=== PATIENT | female | born 1965 | race African-American/Black ===

== ENCOUNTER → 2016-08-09 | Outpatient (CLI) | payer MEDICARE, MEDICAID | LOC: RAD 09:49 | PROVIDERS: ATTEND Orthopaedic Surgery | DX: M43.10 Spondylolisthesis, site unspecified (principal) | CPT/HCPCS: 72148 ==

== ENCOUNTER 2016-09-15 20:11 | Emergency (ER) | payer MEDICARE, MEDICAID ==
[2016-09-15] MEDS ORDERED: ONDANSETRON 4 MG TAB.RAPDIS PO ONE (20:59)
--- NOTE | 2016-09-15 21:00 | ER Document Report ---
ED Medical Screen (RME) - General Stated Complaint: LOWER BACK PAIN/PAINFUL URINATION Notes: Patient complains of right flank pain and dysuria that started yesterday. Now having pain to both flank areas. Positive nausea no vomiting or diarrhea. Denies fever. Tried OTC cranberry pills without relief of symptoms. I have greeted and performed a rapid initial assessment of this patient. A comprehensive ED assessment and evaluation of the patient, analysis of test results and completion of the medical decision making process will be conducted by additional ED providers. TRAVEL OUTSIDE OF THE [place] IN LAST 30 DAYS: No - Related Data Allergies/Adverse Reactions: acetaminophen [Acetaminophen] Allergy (Severe, Verified 10/26/15 08:31) itching Shellfish * [Shellfish] Allergy (Severe, Verified 10/26/15 08:31) itch, rash Sulfa (Sulfonamide Antibiotics) Allergy (Severe, Verified 10/26/15 08:31) Hives Iodinated Contrast Media - Oral and [IV Dye, Iodine Containing] Allergy ( Intermediate, Verified 10/26/15 08:31) rash, itching iodine [Iodine] Allergy (Intermediate, Verified 10/26/15 08:31) itch, rash Past Medical History - Past Medical History Cardiac Medical History: Reports: Hx Congestive Heart Failure, Hx Coronary Artery Disease, Hx Hypercholesterolemia, Hx Hypertension Denies: Hx Heart Attack Pulmonary Medical History: Reports: Hx Asthma Denies: Hx Bronchitis, Hx COPD, Hx Pneumonia, Hx Tuberculosis Neurological Medical History: Reports: Hx Migraine. Denies: Hx Cerebrovascular Accident, Hx Seizures Endocrine Medical History: Reports: Hx Diabetes Mellitus Type 2 Renal/ Medical History: Reports: Hx Kidney Stones Musculoskeltal Medical History: Reports Hx Arthritis, Reports Hx Musculoskeletal Deformity Psychiatric Medical History: Reports: Hx Depression Past Surgical History: Reports: Hx Adenoidectomy, Hx Cardiac Catheterization, Hx Coronary Stent - x4 in 2009 according to the patient, Hx Hysterectomy - partial, Hx Tonsillectomy, Hx Tubal Ligation. Denies: Hx Pacemaker - Immunizations Immunizations up to date: Yes Hx Diphtheria, Pertussis, Tetanus Vaccination: Yes Physical Exam - Vital signs Vitals: Temp Pulse Resp BP Pulse Ox 97.7 F 69 15 150/106 H 97 09/15/16 20:49 09/15/16 20:49 09/15/16 20:49 09/15/16 20:49 09/15/16 20:49 - Back Notes: Patient has mild CVAT bilaterally. Course - Vital Signs Vital signs: Temp Pulse Resp BP Pulse Ox 97.7 F 69 15 150/106 H 97 09/15/16 20:49 09/15/16 20:49 09/15/16 20:49 09/15/16 20:49 09/15/16 20:49
[2016-09-15 21:55] LABS: APPEARANCE,URINE SLIGHTLY-CLOUDY; BILIRUBIN,URINE NEGATIVE (NEGATIVE); GLUCOSE, URINE NEGATIVE (NEGATIVE); KETONES,URINE NEGATIVE (NEGATIVE); LEUKOCYTE ESTERASE,URINE NEGATIVE (NEGATIVE); NITRITE,URINE NEGATIVE (NEGATIVE); PROTEIN,URINE 100 mg/dL (NEGATIVE); UROBILINOGEN,URINE NEGATIVE mg/dL (<2.0)
[2016-09-15] MEDS ORDERED: CIPROFLOXACIN HCL 500 MG TABLET PO ONE (23:18)
--- NOTE | 2016-09-15 23:23 | ER Document Report ---
ED General - General Chief Complaint: Flank Pain Stated Complaint: LOWER BACK PAIN/PAINFUL URINATION Notes: Patient is 51-year-old female presents with complaint of pain over her bilateral kidneys as well as dysuria. Symptoms have been ongoing for a day and half. No fevers. Some nausea. No vomiting. No diarrhea. No other symptoms. She does have history of kidney stones but this feels different. She has been taking cranberry juice in the cranberry tablets. Symptoms not improve with taking these she therefore came to ER. She has no other complaints. She denies any abnormal vaginal discharge. She says she has not been sexually active for a long time.. TRAVEL OUTSIDE OF THE [place] IN LAST 30 DAYS: No - Related Data Allergies/Adverse Reactions: acetaminophen [Acetaminophen] Allergy (Severe, Verified 09/15/16 21:00) itching Shellfish * [Shellfish] Allergy (Severe, Verified 09/15/16 21:00) itch, rash Sulfa (Sulfonamide Antibiotics) Allergy (Severe, Verified 09/15/16 21:00) Hives Iodinated Contrast Media - Oral and [IV Dye, Iodine Containing] Allergy ( Intermediate, Verified 09/15/16 21:00) rash, itching iodine [Iodine] Allergy (Intermediate, Verified 09/15/16 21:00) itch, rash Past Medical History - Social History Smoking Status: Never Smoker Chew tobacco use (# tins/day): No Frequency of alcohol use: None Drug Abuse: None Family History: Arthritis, CAD, DM, Hyperlipidemia, Hypertension, Malignancy, Thyroid Disfunction, Other - kidney disease Patient has suicidal ideation: No Patient has homicidal ideation: No - Past Medical History Cardiac Medical History: Reports: Hx Congestive Heart Failure, Hx Coronary Artery Disease, Hx Hypercholesterolemia, Hx Hypertension Denies: Hx Heart Attack Pulmonary Medical History: Reports: Hx Asthma Denies: Hx Bronchitis, Hx COPD, Hx Pneumonia, Hx Tuberculosis Neurological Medical History: Reports: Hx Migraine. Denies: Hx Cerebrovascular Accident, Hx Seizures Endocrine Medical History: Reports: Hx Diabetes Mellitus Type 2 Renal/ Medical History: Reports: Hx Kidney Stones. Denies: Hx Peritoneal Dialysis Musculoskeltal Medical History: Reports Hx Arthritis, Reports Hx Musculoskeletal Deformity Psychiatric Medical History: Reports: Hx Depression Past Surgical History: Reports: Hx Adenoidectomy, Hx Cardiac Catheterization, Hx Coronary Stent - x4 in 2009 according to the patient, Hx Hysterectomy - partial, Hx Tonsillectomy, Hx Tubal Ligation. Denies: Hx Pacemaker - Immunizations Immunizations up to date: Yes Hx Diphtheria, Pertussis, Tetanus Vaccination: Yes Review of Systems - Review of Systems Notes: My Normal Review Basic REVIEW OF SYSTEMS: CONSTITUTIONAL : Denies fever, chills, or sweats. Denies recent illness. RESPIRATORY: Denies cough, cold, or chest congestion. Denies shortness of breath, difficulty breathing, or wheezing. GASTROINTESTINAL: Denies abdominal pain. Denies nausea, vomiting, or diarrhea. Denies constipation. Last BM: GENITOURINARY: Dysuria FEMALE GENITOURINARY: Denies vaginal bleeding, abnormal or irregular periods. MUSCULOSKELETAL: Pain over bilateral kidneys SKIN: Denies rash or skin lesions. NEUROLOGICAL: Denies altered mental status or loss of consciousness. Denies headache. Denies weakness or paralysis or loss of use of either side. Denies problems with gait or speech. Denies sensory or motor loss. ALL OTHER SYSTEMS REVIEWED AND NEGATIVE. Physical Exam - Vital signs Vitals: Temp Pulse Resp BP Pulse Ox 97.7 F 69 15 150/106 H 97 09/15/16 20:49 09/15/16 20:49 09/15/16 20:49 09/15/16 20:49 09/15/16 20:49 - Notes Notes: General Appearance: Well nourished, alert, cooperative, no acute distress, no obvious discomfort. Vitals: reviewed, See vital signs table. Head: no swelling or tenderness to the head Eyes: PERRL, EOMI, Conjuctiva clear Mouth: No decreasd moisture Neck: Supple, no neck tenderness, No thyromegaly Lungs: No wheezing, No rales, No rhonci, No accessory muscle use, good air exchange bilaterally. Heart: Normal rate, Regular rythm, No murmur, no rub Back: Positive Pedro Luis sign bilaterally. No redness or swelling to the back. Abdomen: Normal BS, soft, No rigidity, mild lower bilateral abdominal tenderness to palpation, No guarding, no rebound, no abdominal masses, no organomegaly Extremities: strength 5/5 in all extremities, good pulses in all extremities, no swelling or tenderness in the extremities, no edema. Skin: warm, dry, appropriate color, no rash Neuro: speech clear, oriented x 3, normal affect, responds appropriately to questions. Course - Vital Signs Vital signs: Temp Pulse Resp BP Pulse Ox 97.7 F 69 15 150/106 H 97 09/15/16 20:57 09/15/16 20:57 09/15/16 20:57 09/15/16 20:57 09/15/16 20:57 - Laboratory Laboratory results interpreted by me: 09/15/16 20:51 Urine Protein 100 H - Transfer of Care Notes: 09/15/16 23:23 Patient's urinalysis is negative. Her symptoms and history of very consistent for UTI though. She has dysuria with mild bilateral low back pain. She had some nausea. She's had no fevers. She has been on the cranberry tablets. She has no blood in her urine and her pain is bilateral therefore do not suspect kidney stone. At this time I'll give the patient a trial of antibiotics. I encourage her to return to ER immediately if she has any worsening of her symptoms. I informed her she must return to ER or her doctor in 3-4 days of her symptoms have not improved with the antibiotics. Patient is agreeable to plan and she will be discharged home. Dictation of this chart was performed using voice recognition software; therefore, there may be some unintended grammatical errors. Discharge - Discharge Clinical Impression: Dysuria Condition: Good Disposition: HOME, SELF-CARE Additional Instructions: Please take the antibiotics as prescribed. Please return to the ER immediately if you have worsening of your symptoms, fevers, or feel unwell. Please return to ER follow-up care doctor in 3-4 days if he still of symptoms despite taking the antibiotics. Prescriptions: Ciprofloxacin HCl [Cipro 500 mg Tablet] 500 mg PO BID #10 tablet
[2016-09-16 00:25] VITALS: BP 107/104
== END 2016-09-15 23:34 | disposition home or self-care (01) ==
LOC: ER 20:11
DX: R30.0 Dysuria (principal); N23 Unspecified renal colic; R11.0 Nausea; E11.9 Type 2 diabetes mellitus without complications; I25.10 Atherosclerotic heart disease of native coronary artery without angina pectoris; I10 Essential (primary) hypertension; J45.909 Unspecified asthma, uncomplicated; Z87.442 Personal history of urinary calculi; Z88.6 Allergy status to analgesic agent; Z91.013 Allergy to seafood; Z88.2 Allergy status to sulfonamides; Z91.040 Latex allergy status; Z98.61 Coronary angioplasty status
CPT/HCPCS: 81001; 99284

== ENCOUNTER 2016-09-19 00:35 | Emergency (ER) | payer MEDICARE, MEDICAID ==
--- NOTE | 2016-09-19 03:59 | ER Document Report ---
ED GI/ - General Chief Complaint: Flank Pain Stated Complaint: FLANK PAIN Notes: Patient is a 51-year-old female that comes emergency department for chief complaint of pain in her flank, pain is in her lower back and on both sides. Patient states intermittently she feels shooting into her legs which she started to notice over the past couple of days. She states she was evaluated a few days ago and placed on Cipro for urinary symptoms and flank pain, states her symptoms have not improved. She denies nausea or vomiting, injury, fever. Past medical history of hypertension, diabetes, lower back pain which she takes tramadol for and has had back injections previously. Patient states that this evening when she stood she felt a little lightheaded, denies headache, chest pain, dizziness, fever. TRAVEL OUTSIDE OF THE [place] IN LAST 30 DAYS: No - Related Data Allergies/Adverse Reactions: acetaminophen [Acetaminophen] Allergy (Severe, Verified 09/19/16 01:01) itching Shellfish * [Shellfish] Allergy (Severe, Verified 09/19/16 01:01) itch, rash Sulfa (Sulfonamide Antibiotics) Allergy (Severe, Verified 09/19/16 01:01) Hives Iodinated Contrast Media - Oral and [IV Dye, Iodine Containing] Allergy ( Intermediate, Verified 09/19/16 01:01) rash, itching iodine [Iodine] Allergy (Intermediate, Verified 09/19/16 01:01) itch, rash Past Medical History - General Information source: Patient - Social History Smoking Status: Never Smoker Chew tobacco use (# tins/day): No Frequency of alcohol use: None Drug Abuse: None Lives with: Family Family History: Arthritis, CAD, DM, Hyperlipidemia, Hypertension, Malignancy, Thyroid Disfunction, Other - kidney disease Patient has suicidal ideation: No Patient has homicidal ideation: No - Past Medical History Cardiac Medical History: Reports: Hx Congestive Heart Failure, Hx Coronary Artery Disease, Hx Hypercholesterolemia, Hx Hypertension Denies: Hx Heart Attack Pulmonary Medical History: Reports: Hx Asthma Denies: Hx Bronchitis, Hx COPD, Hx Pneumonia, Hx Tuberculosis Neurological Medical History: Reports: Hx Migraine. Denies: Hx Cerebrovascular Accident, Hx Seizures Endocrine Medical History: Reports: Hx Diabetes Mellitus Type 2 Renal/ Medical History: Reports: Hx Kidney Stones. Denies: Hx Peritoneal Dialysis Musculoskeltal Medical History: Reports Hx Arthritis, Reports Hx Musculoskeletal Deformity Psychiatric Medical History: Reports: Hx Depression Past Surgical History: Reports: Hx Adenoidectomy, Hx Cardiac Catheterization, Hx Coronary Stent - x4 in 2009 according to the patient, Hx Hysterectomy, Hx Tonsillectomy, Hx Tubal Ligation. Denies: Hx Pacemaker - Immunizations Immunizations up to date: Yes Hx Diphtheria, Pertussis, Tetanus Vaccination: Yes Review of Systems - Review of Systems Constitutional: No symptoms reported EENT: No symptoms reported Cardiovascular: No symptoms reported Respiratory: No symptoms reported Gastrointestinal: See HPI Genitourinary: See HPI Female Genitourinary: No symptoms reported Musculoskeletal: See HPI Skin: No symptoms reported Hematologic/Lymphatic: No symptoms reported Neurological/Psychological: No symptoms reported Physical Exam - Vital signs Vitals: Temp Pulse Resp BP Pulse Ox 98.3 F 70 20 182/108 H 98 09/19/16 00:51 09/19/16 00:51 09/19/16 00:51 09/19/16 00:51 09/19/16 00:51 Interpretation: Normal - General General appearance: Appears well, Alert In distress: None - Patient resting and appears comfortable, moves with some discomfort - HEENT Head: Normocephalic, Atraumatic Eyes: Normal Conjunctiva: Normal Extraocular movements intact: Yes Eyelashes: Normal Pupils: PERRL Nasal: Normal Mouth/Lips: Normal Mucous membranes: Normal Pharynx: Normal Neck: Normal - Respiratory Respiratory status: No respiratory distress Chest status: Nontender Breath sounds: Normal Chest palpation: Normal - Cardiovascular Rhythm: Regular. No: Tachycardia Heart sounds: Normal auscultation, S1 appreciated, S2 appreciated Murmur: No - Abdominal Inspection: Normal Distension: No distension Bowel sounds: Normal Tenderness: Nontender. No: Tender, Guarding - Completely benign abdomen Organomegaly: No organomegaly - Back Back: Tender - Tenderness in the bilateral paralumbar musculature, no CVA tenderness, no midline tenderness, no saddle anesthesia, normal upper and lower examine strength, range of motion, and distal neurovascular exam. Mildly positive straight leg raise bilaterally with complaining but no severe discomfort. - Extremities General upper extremity: Normal inspection, Nontender, Normal color, Normal ROM , Normal temperature General lower extremity: Normal inspection, Nontender, Normal color, Normal ROM , Normal temperature, Normal weight bearing. No: Roe's sign - Neurological Neuro grossly intact: Yes Cognition: Normal Orientation: AAOx4 Lazarus Coma Scale Eye Opening: Spontaneous Brodhead Coma Scale Verbal: Oriented Brodhead Coma Scale Motor: Obeys Commands Lazarus Coma Scale Total: 15 Speech: Normal Motor strength normal: LUE, RUE, LLE, RLE Sensory: Normal - Psychological Associated symptoms: Normal affect, Normal mood - Skin Skin Temperature: Warm Skin Moisture: Dry Skin Color: Normal Course - Re-evaluation Re-evalutation: Patient does not have CVA tenderness, she does have bilateral paralumbar muscular tenderness with pain with elevation of legs on both sides. Normal distal neurovascular exam, no saddle anesthesia, no reported injuries. Patient with chronic back pain which is usually not this bad apparently. CBC, chemistry , urinalysis generally unremarkable, urine with trace leukocytes, this was cultured. Patient finishing her Cipro, will treat symptomatically, advised patient to follow-up with her provider who has performed back injections and back evaluation in the past, discussed return precautions in detail, patient states she'll return for fever, vomiting, worsening pain, numbness, or any new concerning symptoms. - Vital Signs Vital signs: Temp Pulse Resp BP Pulse Ox 98.1 F 62 16 130/84 H 97 09/19/16 06:03 09/19/16 06:03 09/19/16 06:03 09/19/16 06:03 09/19/16 06:03 - Laboratory Result Diagrams: 09/19/16 04:01 09/19/16 04:01 Laboratory results interpreted by me: 09/19/16 09/19/16 09/19/16 04:01 04:01 04:01 RDW 14.5 H BUN 25 H Est GFR (Non-Af Amer) 50 L Glucose 151 H Urine Protein 100 H Ur Leukocyte Esterase SMALL H Discharge - Discharge Clinical Impression: Lower back pain Qualifiers: Chronicity: unspecified Back pain laterality: bilateral Sciatica presence: with sciatica Sciatica laterality: sciatica of right side Qualified Code(s): M54.41 - Lumbago with sciatica, right side Condition: Stable Disposition: HOME, SELF-CARE Additional Instructions: By examination and workup your symptoms appear to be musculoskeletal in nature. Take pain medication as directed, apply heat to her lower back, avoid lifting. Follow-up with your provider for additional management including potential back injections or otherwise. Return to emergency department for any concerning or worsening symptoms including fever, numbness, loss of bowel or bladder control, or any other concerning symptoms. Prescriptions: Methocarbamol [Robaxin 750 mg Tablet] 750 mg PO Q6 #20 tablet Oxycodone HCl [Oxycodone HCl 10 MG Tablet] 1 tab PO Q6H PRN #15 tablet PRN Reason: PAIN Forms: Elevated Blood Pressure Referrals: JONATHON RODRIGEZ MD [Primary Care Provider] - Follow up as needed
[2016-09-19 04:21] LABS: ANION GAP 10 (5-19); BLOOD UREA NITROGEN 25 mg/dL (7-20); CALCIUM 9.4 mg/dL (8.4-10.2); CARBON DIOXIDE 24 mmol/L (22-30); CHLORIDE 107 mmol/L (98-107); CREATININE RESULT 1.15 mg/dL (0.52-1.25); GLUCOSE 151 mg/dL (75-110); POTASSIUM 3.6 mmol/L (3.6-5.0); SODIUM 141.1 mmol/L (137-145)
[2016-09-19 04:28] LABS: ABSOLUTE BASOPHILS # (AUTO) 0.1 10^3/uL (0.0-0.2); ABSOLUTE EOSINOPHILS # (AUTO) 0.2 10^3/uL (0.0-0.6); ABSOLUTE LYMPHOCYTES (AUTO) 2.7 10^3/uL (0.5-4.7); ABSOLUTE MONOCYTES (AUTO) 0.4 10^3/uL (0.1-1.4); ABSOLUTE NEUT (AUTO) 6.8 10^3/uL (1.7-8.2); BASOPHILS % (AUTO) 0.8 % (0-2); EOSINOPHILS % (AUTO) 2.2 % (0-6); HEMATOCRIT 39.4 % (36.0-47.0); HEMOGLOBIN 13.2 g/dL (12.0-15.5); HGB HCT DIFFERENCE 0.2; LYMPHOCYTES % (AUTO) 26.7 % (13-45); MEAN CORPUSCULAR HEMOGLOBIN 29.3 pg (27.0-33.4); MEAN CORPUSCULAR HGB CONC 33.4 g/dL (32.0-36.0); MEAN CORPUSCULAR VOLUME 88 fl (80-97); MONOCYTES % (AUTO) 3.7 % (3-13); RED CELL DISTRIBUTION WIDTH 14.5 % (11.5-14.0); SEGMENTED NEUTROPHILS % (AUTO) 66.6 % (42-78); WHITE BLOOD COUNT 10.2 10^3/uL (4.0-10.5)
[2016-09-19 04:59] LABS: APPEARANCE,URINE SLIGHTLY-CLOUDY; BILIRUBIN,URINE NEGATIVE (NEGATIVE); GLUCOSE, URINE NEGATIVE (NEGATIVE); KETONES,URINE NEGATIVE (NEGATIVE); LEUKOCYTE ESTERASE,URINE SMALL (NEGATIVE); NITRITE,URINE NEGATIVE (NEGATIVE); PROTEIN,URINE 100 mg/dL (NEGATIVE); URINE SPECIFIC GRAVITY 1.016; UROBILINOGEN,URINE NEGATIVE mg/dL (<2.0)
[2016-09-19 06:09] VITALS: BP 130/84
== END 2016-09-19 06:04 | disposition home or self-care (01) ==
LOC: ER 00:35
DX: G89.29 Other chronic pain (principal); M54.41 Lumbago with sciatica, right side; R42 Dizziness and giddiness; I25.10 Atherosclerotic heart disease of native coronary artery without angina pectoris; I10 Essential (primary) hypertension; E11.9 Type 2 diabetes mellitus without complications; J45.909 Unspecified asthma, uncomplicated; Z79.891 Long term (current) use of opiate analgesic; Z88.6 Allergy status to analgesic agent; Z91.013 Allergy to seafood; Z88.2 Allergy status to sulfonamides; Z91.041 Radiographic dye allergy status; Z98.61 Coronary angioplasty status
CPT/HCPCS: 36415; 80048; 81001; 85025; 87086; 99284

== ENCOUNTER → 2016-09-27 | Outpatient (CLI) | payer MEDICARE, MEDICAID ==
[2016-09-27 14:25] LABS: ANION GAP 12 (5-19); BLOOD UREA NITROGEN 21 mg/dL (7-20); CALCIUM 9.9 mg/dL (8.4-10.2); CARBON DIOXIDE 24 mmol/L (22-30); CHLORIDE 109 mmol/L (98-107); CREATININE RESULT 1.14 mg/dL (0.52-1.25); GLUCOSE 93 mg/dL (75-110); POTASSIUM 4.2 mmol/L (3.6-5.0); SODIUM 145.1 mmol/L (137-145)
[2016-09-28 10:37] LABS: CREATININE URINE 266.6 mg/dL (Not Estab.)
== END ==
LOC: OD 12:56
PROVIDERS: ATTEND Internal Medicine Nephrology
DX: E11.9 Type 2 diabetes mellitus without complications (principal)
CPT/HCPCS: 36415; 80048; 82570; 83970; 84156

== ENCOUNTER 2017-01-02 15:49 | Emergency (ER) | payer MEDICARE, MEDICAID ==
--- NOTE | 2017-01-02 16:29 | ER Document Report ---
ED Medical Screen (RME) - General Chief Complaint: Flank Pain Stated Complaint: SIDE PAIN Time Seen by Provider: 01/02/17 16:26 Notes: Patient says that she has had a sharp pain in her right side since about 11 AM this morning. This was soon after getting up from being in the bed bed and also from laying on the couch. The pain is sharp and constant. She is not had it previously. It is making her feel lightheaded. Denies any nausea or vomiting or diarrhea, but says she has not eaten or had anything to drink this morning. She had a history of a kidney stone once many years ago. No frequent UTIs. Has not had a fever. Has had some sweats. Patient has a history of hypertension, NIDDM, high cholesterol, hysterectomy. Cardiac cath. TRAVEL OUTSIDE OF THE [place] IN LAST 30 DAYS: No - Related Data Allergies/Adverse Reactions: acetaminophen [Acetaminophen] Allergy (Severe, Verified 09/19/16 01:01) itching Shellfish * [Shellfish] Allergy (Severe, Verified 09/19/16 01:01) itch, rash Sulfa (Sulfonamide Antibiotics) Allergy (Severe, Verified 09/19/16 01:01) Hives Iodinated Contrast- Oral and IV Dye [IV Dye, Iodine Containing] Allergy ( Intermediate, Verified 09/19/16 01:01) rash, itching iodine [Iodine] Allergy (Intermediate, Verified 09/19/16 01:01) itch, rash Past Medical History - Social History Chew tobacco use (# tins/day): No Frequency of alcohol use: Social Drug Abuse: None - Past Medical History Cardiac Medical History: Reports: Hx Congestive Heart Failure, Hx Coronary Artery Disease, Hx Hypercholesterolemia, Hx Hypertension Denies: Hx Heart Attack Pulmonary Medical History: Reports: Hx Asthma Denies: Hx Bronchitis, Hx COPD, Hx Pneumonia, Hx Tuberculosis Neurological Medical History: Reports: Hx Migraine. Denies: Hx Cerebrovascular Accident, Hx Seizures Endocrine Medical History: Reports: Hx Diabetes Mellitus Type 2 Renal/ Medical History: Reports: Hx Kidney Stones. Denies: Hx Peritoneal Dialysis Musculoskeltal Medical History: Reports Hx Arthritis, Reports Hx Musculoskeletal Deformity Psychiatric Medical History: Reports: Hx Depression Past Surgical History: Reports: Hx Adenoidectomy, Hx Cardiac Catheterization, Hx Coronary Stent - x4 in 2009 according to the patient, Hx Hysterectomy, Hx Tonsillectomy, Hx Tubal Ligation. Denies: Hx Pacemaker - Immunizations Immunizations up to date: Yes Hx Diphtheria, Pertussis, Tetanus Vaccination: Yes Physical Exam - Vital signs Vitals: Temp Pulse Resp BP Pulse Ox 98.5 F 65 22 H 179/111 H 98 01/02/17 15:55 01/02/17 15:55 01/02/17 15:55 01/02/17 15:55 01/02/17 15:55 Course - Vital Signs Vital signs: Temp Pulse Resp BP Pulse Ox 98.5 F 65 22 H 105/104 H 98 01/02/17 15:55 01/02/17 15:55 01/02/17 15:55 01/02/17 16:19 01/02/17 15:55
[2017-01-02 17:14] LABS: ABSOLUTE BASOPHILS # (AUTO) 0.1 10^3/uL (0.0-0.2); ABSOLUTE EOSINOPHILS # (AUTO) 0.2 10^3/uL (0.0-0.6); ABSOLUTE LYMPHOCYTES (AUTO) 2.2 10^3/uL (0.5-4.7); ABSOLUTE MONOCYTES (AUTO) 0.4 10^3/uL (0.1-1.4); ABSOLUTE NEUT (AUTO) 5.6 10^3/uL (1.7-8.2); BASOPHILS % (AUTO) 0.6 % (0-2); EOSINOPHILS % (AUTO) 1.9 % (0-6); HEMATOCRIT 41.2 % (36.0-47.0); HEMOGLOBIN 13.3 g/dL (12.0-15.5); HGB HCT DIFFERENCE -1.3; LYMPHOCYTES % (AUTO) 26.2 % (13-45); MEAN CORPUSCULAR HEMOGLOBIN 28.5 pg (27.0-33.4); MEAN CORPUSCULAR HGB CONC 32.4 g/dL (32.0-36.0); MEAN CORPUSCULAR VOLUME 88 fl (80-97); MONOCYTES % (AUTO) 4.7 % (3-13); RED BLOOD COUNT 4.68 10^6/uL (3.72-5.28); RED CELL DISTRIBUTION WIDTH 15.2 % (11.5-14.0); SEGMENTED NEUTROPHILS % (AUTO) 66.6 % (42-78); WHITE BLOOD COUNT 8.5 10^3/uL (4.0-10.5)
[2017-01-02 17:20] LABS: ALANINE AMINOTRANSFERASE 30 U/L (9-52); ALBUMIN 4.1 g/dL (3.5-5.0); ALKALINE PHOSPHATASE 92 U/L (38-126); ANION GAP 10 (5-19); APPEARANCE,URINE SLIGHTLY-CLOUDY; ASPARTATE AMINO TRANSFERASE 19 U/L (14-36); BILIRUBIN,DIRECT 0.3 mg/dL (0.0-0.4); BILIRUBIN,TOTAL 0.7 mg/dL (0.2-1.3); BILIRUBIN,URINE NEGATIVE (NEGATIVE); BLOOD UREA NITROGEN 20 mg/dL (7-20); CALCIUM 9.9 mg/dL (8.4-10.2); CARBON DIOXIDE 27 mmol/L (22-30); CHLORIDE 106 mmol/L (98-107); CREATININE RESULT 1.16 mg/dL (0.52-1.25); GLUCOSE 104 mg/dL (75-110); GLUCOSE, URINE NEGATIVE (NEGATIVE); KETONES,URINE NEGATIVE (NEGATIVE); LEUKOCYTE ESTERASE,URINE TRACE (NEGATIVE); NITRITE,URINE NEGATIVE (NEGATIVE); PROTEIN,URINE >=500 mg/dL (NEGATIVE); SODIUM 142.9 mmol/L (137-145); TOTAL PROTEIN 7.2 g/dL (6.3-8.2); URINE SPECIFIC GRAVITY 1.015; UROBILINOGEN,URINE NEGATIVE mg/dL (<2.0)
[2017-01-02] MEDS ORDERED: TRAMADOL HCL 50 MG TABLET PO ONE (19:01)
--- NOTE | 2017-01-02 19:48 | ER Document Report ---
ED General - General Chief Complaint: Flank Pain Stated Complaint: SIDE PAIN Time Seen by Provider: 01/02/17 16:26 Mode of Arrival: Ambulatory Information source: Patient Notes: 51-year-old female presents with complaints of right upper quadrant abdominal pain that started earlier today. Patient denies any previous similar episodes denies any urinary complaints of flank complaint TRAVEL OUTSIDE OF THE [place] IN LAST 30 DAYS: No - HPI Onset: This morning Onset/Duration: Sudden Quality of pain: Sharp Severity: Mild Pain Level: 1 Associated symptoms: Other Exacerbated by: Denies Relieved by: Denies Similar symptoms previously: Yes Recently seen / treated by doctor: Yes - Related Data Allergies/Adverse Reactions: acetaminophen [Acetaminophen] Allergy (Severe, Verified 09/19/16 01:01) itching Shellfish * [Shellfish] Allergy (Severe, Verified 09/19/16 01:01) itch, rash Sulfa (Sulfonamide Antibiotics) Allergy (Severe, Verified 09/19/16 01:01) Hives Iodinated Contrast- Oral and IV Dye [IV Dye, Iodine Containing] Allergy ( Intermediate, Verified 09/19/16 01:01) rash, itching iodine [Iodine] Allergy (Intermediate, Verified 09/19/16 01:01) itch, rash Past Medical History - Social History Smoking Status: Former Smoker Cigarette use (# per day): No Chew tobacco use (# tins/day): No Smoking Education Provided: No Frequency of alcohol use: Social Drug Abuse: None Family History: Arthritis, CAD, DM, Hyperlipidemia, Hypertension, Malignancy, Thyroid Disfunction, Other - kidney disease Patient has suicidal ideation: No Patient has homicidal ideation: No - Past Medical History Cardiac Medical History: Reports: Hx Congestive Heart Failure, Hx Coronary Artery Disease, Hx Hypercholesterolemia, Hx Hypertension Denies: Hx Heart Attack Pulmonary Medical History: Reports: Hx Asthma Denies: Hx Bronchitis, Hx COPD, Hx Pneumonia, Hx Tuberculosis Neurological Medical History: Reports: Hx Migraine. Denies: Hx Cerebrovascular Accident, Hx Seizures Endocrine Medical History: Reports: Hx Diabetes Mellitus Type 2 Renal/ Medical History: Reports: Hx Kidney Stones. Denies: Hx Peritoneal Dialysis Musculoskeltal Medical History: Reports Hx Arthritis, Reports Hx Musculoskeletal Deformity Psychiatric Medical History: Reports: Hx Depression Past Surgical History: Reports: Hx Adenoidectomy, Hx Cardiac Catheterization, Hx Coronary Stent - x4 in 2009 according to the patient, Hx Hysterectomy, Hx Tonsillectomy, Hx Tubal Ligation. Denies: Hx Pacemaker - Immunizations Immunizations up to date: Yes Hx Diphtheria, Pertussis, Tetanus Vaccination: Yes Physical Exam - Vital signs Vitals: Temp Pulse Resp BP Pulse Ox 98.5 F 65 22 H 179/111 H 98 01/02/17 15:55 01/02/17 15:55 01/02/17 15:55 01/02/17 15:55 01/02/17 15:55 Course - Re-evaluation Re-evalutation: 01/02/17 20:33 U/s is consistent with gallstone, otherwise no signs of cholecystitis I will have patient follow-up with surgeon outpatient this does not appear to be life-threatening at this time will require evaluation After performing a Medical Screening Examination, I estimate there is LOW risk for ACUTE APPENDICITIS, BOWEL OBSTRUCTION, ACUTE CHOLECYSTITIS, PERFORATED DIVERTICULITIS, INCARCERATED HERNIA, PANCREATITIS, PELVIC INFLAMMATORY DISEASE, PERFORATED ULCER, ECTOPIC , or TUBO-OVARIAN ABSCESS, thus I consider the discharge disposition reasonable. Also, there is no evidence or peritonitis , sepsis, or toxicity. I have reevaluated this patient multiple times and no significant life threatening changes are noted. The patient and I have discussed the diagnosis and risks, and we agree with discharging home with close follow-up with the understanding that symptoms and presentations can change. We also discussed returning to the Emergency Department immediately if new or worsening symptoms occur. We have discussed the symptoms which are most concerning (e.g., bloody stool, fever, changing or worsening pain, vomiting) that necessitate immediate return. - Vital Signs Vital signs: Temp Pulse Resp BP Pulse Ox 98.5 F 65 22 H 105/104 H 98 01/02/17 15:55 01/02/17 15:55 01/02/17 15:55 01/02/17 16:19 01/02/17 15:55 - Laboratory Result Diagrams: 01/02/17 16:45 01/02/17 16:45 Laboratory results interpreted by me: 01/02/17 01/02/17 01/02/17 16:45 16:45 16:45 RDW 15.2 H Est GFR ( Amer) 59 L Est GFR (Non-Af Amer) 49 L Urine Protein >=500 H Ur Leukocyte Esterase TRACE H - Diagnostic Test Radiology reviewed: Image reviewed, Reports reviewed - gallstone report given to patient Discharge - Discharge Clinical Impression: Cholelithiasis Qualifiers: Cholelithiasis location: gallbladder Cholecystitis presence: without cholecystitis Biliary obstruction: without biliary obstruction Qualified Code(s) : K80.20 - Calculus of gallbladder without cholecystitis without obstruction Abdominal pain Qualifiers: Abdominal location: right upper quadrant Qualified Code(s): R10.11 - Right upper quadrant pain Condition: Stable Disposition: HOME, SELF-CARE Instructions: Abdominal Pain ([facility]), Gallbladder Disease ([facility]) Prescriptions: Oxycodone HCl/Acetaminophen [Percocet 5-325 mg Tablet] 1 - 2 tab PO Q4H PRN #15 tablet PRN Reason: Referrals: JONATHON RODRIGEZ MD [Primary Care Provider] - Follow up as needed LINDA HOLLINGSWORTH MD [ACTIVE STAFF] - Follow up tomorrow
--- NOTE | 2017-01-02 19:51 | RADIOLOGY REPORT (SQ) ---
EXAM DESCRIPTION: U/S ABDOMEN LIMITED W/O DOP COMPLETED DATE/TIME: 01/02/2017 7:41 pm REASON FOR STUDY: RUQ pain COMPARISON: September 2011 TECHNIQUE: Dynamic and static grayscale images acquired of the abdomen and recorded on PACS. Additio nal selected color Doppler and spectral images recorded. LIMITATIONS: None. FINDINGS: PANCREAS: No masses. No peripancreatic edema or fluid collections. LIVER: Echotexture is coarse with increased echogenicity consistent with fatty infiltration. LIVER VASCULATURE: Normal blood flow is identified in the portal vein. GALLBLADDER: Solitary gallstone is identified. Normal wall thickness. No pericholecystic fluid. ULTRASOUND-DETECTED GEORGE'S SIGN: Negative. INTRAHEPATIC DUCTS AND COMMON DUCT: CBD and intrahepatic ducts normal caliber. No filling defects. INFERIOR VENA CAVA: Normal flow. AORTA: No aneurysm. RIGHT KIDNEY: 11.3 cm in length. Normal echogenicity. No solid or suspicious masses. Renal cyst is identified measuring 5.5 x 3.5 x 4.2 cm. No hydronephrosis. No calcifications. PERITONEAL AND RIGHT PLEURAL SPACE: No ascites or effusions. OTHER: No other significant finding. IMPRESSION: FATTY INFILTRATION OF THE LIVER. Solitary gallstone is identified. Right renal cyst. Other findings as noted above TECHNICAL DOCUMENTATION: JOB ID: [id number] [employer]- All Rights Reserved
[2017-01-02 21:38] VITALS: BP 149/94
== END 2017-01-02 21:30 | disposition home or self-care (01) ==
LOC: ER 15:49
DX: K80.20 Calculus of gallbladder without cholecystitis without obstruction (principal); R10.11 Right upper quadrant pain; E11.9 Type 2 diabetes mellitus without complications; I25.10 Atherosclerotic heart disease of native coronary artery without angina pectoris; I10 Essential (primary) hypertension; J45.909 Unspecified asthma, uncomplicated; Z88.6 Allergy status to analgesic agent; Z91.013 Allergy to seafood; Z88.2 Allergy status to sulfonamides; Z91.041 Radiographic dye allergy status; Z87.891 Personal history of nicotine dependence; Z98.61 Coronary angioplasty status
CPT/HCPCS: 99284; 36415; 83690; 85025; 80053; 81001; 76705; A9270

== ENCOUNTER 2017-01-31 02:48 | Observation (INO) | payer MEDICARE, MEDICAID ==
[2017-01-31] MEDS ORDERED: MORPHINE SULFATE 10 MG/ML INJ IV ONE (03:58)
[2017-01-31] MEDS ORDERED: PANTOPRAZOLE SODIUM 40 MG VIAL IV ONE (03:58)
[2017-01-31] MEDS ORDERED: ONDANSETRON HCL INJ/PF 4 MG/2 ML SDV IV ONE ×2 (03:58→17:00)
--- NOTE | 2017-01-31 03:59 | ER Document Report ---
ED General - General Chief Complaint: Abdominal Pain Stated Complaint: STOMACH PAIN Time Seen by Provider: 01/31/17 03:54 Notes: Patient is a 51-year-old female presents with complaint of abdominal pain. Pain is mostly in epigastric and right upper quadrant region. Patient says she does have history of gallstones. She said it started when she was washing dishes. For dinner she had baked chicken. Previous abdominal surgery includes partial hysterectomy with right oophrectomy. She did vomit after the pain started. She has not had any further vomiting. No recent fevers or infections. No diarrhea. She has had some reflux and burning going into her throat since the vomiting. No other complaints at this time. TRAVEL OUTSIDE OF THE [place] IN LAST 30 DAYS: No - Related Data Allergies/Adverse Reactions: acetaminophen [Acetaminophen] Allergy (Severe, Verified 09/19/16 01:01) itching Shellfish * [Shellfish] Allergy (Severe, Verified 09/19/16 01:01) itch, rash Sulfa (Sulfonamide Antibiotics) Allergy (Severe, Verified 09/19/16 01:01) Hives Iodinated Contrast- Oral and IV Dye [IV Dye, Iodine Containing] Allergy ( Intermediate, Verified 09/19/16 01:01) rash, itching iodine [Iodine] Allergy (Intermediate, Verified 09/19/16 01:01) itch, rash Past Medical History - Social History Smoking Status: Never Smoker Frequency of alcohol use: None Drug Abuse: None Family History: Arthritis, CAD, DM, Hyperlipidemia, Hypertension, Malignancy, Thyroid Disfunction, Other - kidney disease Patient has suicidal ideation: No Patient has homicidal ideation: No - Past Medical History Cardiac Medical History: Reports: Hx Congestive Heart Failure, Hx Coronary Artery Disease, Hx Hypercholesterolemia, Hx Hypertension Denies: Hx Heart Attack Pulmonary Medical History: Reports: Hx Asthma Denies: Hx Bronchitis, Hx COPD, Hx Pneumonia, Hx Tuberculosis Neurological Medical History: Reports: Hx Migraine. Denies: Hx Cerebrovascular Accident, Hx Seizures Endocrine Medical History: Reports: Hx Diabetes Mellitus Type 2 Renal/ Medical History: Reports: Hx Kidney Stones. Denies: Hx Peritoneal Dialysis Musculoskeltal Medical History: Reports Hx Arthritis, Reports Hx Musculoskeletal Deformity Psychiatric Medical History: Reports: Hx Depression Past Surgical History: Reports: Hx Adenoidectomy, Hx Cardiac Catheterization, Hx Coronary Stent - x4 in 2009 according to the patient, Hx Hysterectomy, Hx Tonsillectomy, Hx Tubal Ligation. Denies: Hx Pacemaker - Immunizations Immunizations up to date: Yes Hx Diphtheria, Pertussis, Tetanus Vaccination: Yes Review of Systems - Review of Systems Notes: My Normal Review Basic REVIEW OF SYSTEMS: CONSTITUTIONAL : Denies fever, chills, or sweats. Denies recent illness. EENT: Denies eye, ear, throat, or mouth pain or symptoms. Denies nasal or sinus congestion. CARDIOVASCULAR: Denies chest pain. RESPIRATORY: Denies cough, cold, or chest congestion. Denies shortness of breath, difficulty breathing, or wheezing. GASTROINTESTINAL: Abdominal pain with vomiting. Denies constipation. Last BM: GENITOURINARY: Denies difficulty urinating, painful urination, burning, frequency, or blood in urine. MUSCULOSKELETAL: Denies neck or back pain or joint pain or swelling. SKIN: Denies rash or skin lesions. NEUROLOGICAL: Denies altered mental status or loss of consciousness. Denies headache. Denies weakness or paralysis or loss of use of either side. Denies problems with gait or speech. Denies sensory or motor loss. ALL OTHER SYSTEMS REVIEWED AND NEGATIVE. Physical Exam - Vital signs Vitals: Temp Pulse Resp BP Pulse Ox 98.4 F 118 H 18 147/119 H 98 01/31/17 02:53 01/31/17 02:53 01/31/17 02:53 01/31/17 02:53 01/31/17 02:53 - Notes Notes: General Appearance: Well nourished, alert, cooperative, no acute distress, mild to moderate obvious discomfort. Vitals: reviewed, See vital signs table. Head: no swelling or tenderness to the head Eyes: PERRL, EOMI, Conjuctiva clear Mouth: No decreasd moisture Lungs: No wheezing, No rales, No rhonci, No accessory muscle use, good air exchange bilaterally. Heart: Normal rate, Regular rythm, No murmur, no rub Abdomen: Normal BS, soft, No rigidity, mild right upper quadrant and mid right side abdominal pain to palpation. Remainder of abdomen is nontender., No guarding, no rebound, no abdominal masses, no organomegaly Extremities: strength 5/5 in all extremities, good pulses in all extremities, no swelling or tenderness in the extremities, no edema. Skin: warm, dry, appropriate color, no rash Neuro: speech clear, oriented x 3, normal affect, responds appropriately to questions. Course - Re-evaluation Re-evalutation: 01/31/17 08:23 Patient does have hypokalemia. I gave her oral potassium. Patient did not vomit more but she continues to have pain despite multiple doses of pain medications. I did review her ultrasounds myself. It appears that she does have a large stone in the gallbladder neck. This is probably why her pain is intractable. I did speak with Dr. Rodriguez, general surgeon, who did evaluate the patient agrees to admit the patient be requested I speak with medicine about consultation for medical clearance. I did speak with Dr. Hussein who agrees to see the patient for potential medical clearance. 01/31/17 08:24 Dictation of this chart was performed using voice recognition software; therefore, there may be some unintended grammatical errors. 01/31/17 09:34 - Vital Signs Vital signs: Temp Pulse Resp BP Pulse Ox 98.4 F 96 18 148/101 H 93 01/31/17 02:53 01/31/17 07:12 01/31/17 07:12 01/31/17 07:12 01/31/17 07:12 - Laboratory Result Diagrams: 01/31/17 04:36 01/31/17 04:36 Laboratory results interpreted by me: 01/31/17 01/31/17 01/31/17 04:36 04:36 04:40 RDW 14.6 H Potassium 2.9 L* BUN 23 H Creatinine 1.27 H Est GFR ( Amer) 53 L Est GFR (Non-Af Amer) 44 L Urine Protein >=500 H Urine Ketones TRACE H Ur Leukocyte Esterase LARGE H - EKG Interpretation by Me Additional EKG results interpreted by me: 01/31/17 04:45 EKG is reviewed and interpreted by me. EKG shows normal sinus rhythm with a rate of [address] segment elevation or depression. Patient does have a single PVC. IL interval, QRS duration are within normal range. QTc interval is prolonged. No old EKG available for comparison. Discharge - Discharge Clinical Impression: Hypokalemia Cholelithiasis Qualifiers: Cholelithiasis location: gallbladder Cholecystitis presence: without cholecystitis Biliary obstruction: without biliary obstruction Qualified Code(s) : K80.20 - Calculus of gallbladder without cholecystitis without obstruction Condition: Stable Disposition: ADMITTED OBSERVATION Admitting Provider: Surgicalist Unit Admitted: Surgical Floor
[2017-01-31 04:49] LABS: ABSOLUTE BASOPHILS # (AUTO) 0.1 10^3/uL (0.0-0.2); ABSOLUTE EOSINOPHILS # (AUTO) 0.2 10^3/uL (0.0-0.6); ABSOLUTE LYMPHOCYTES (AUTO) 2.9 10^3/uL (0.5-4.7); ABSOLUTE MONOCYTES (AUTO) 0.6 10^3/uL (0.1-1.4); ABSOLUTE NEUT (AUTO) 6.6 10^3/uL (1.7-8.2); BASOPHILS % (AUTO) 0.6 % (0-2); EOSINOPHILS % (AUTO) 1.6 % (0-6); HEMATOCRIT 39.6 % (36.0-47.0); HEMOGLOBIN 13.1 g/dL (12.0-15.5); HGB HCT DIFFERENCE -0.3; LYMPHOCYTES % (AUTO) 27.8 % (13-45); MEAN CORPUSCULAR HGB CONC 33.1 g/dL (32.0-36.0); MEAN CORPUSCULAR VOLUME 88 fl (80-97); MONOCYTES % (AUTO) 6.3 % (3-13); RED BLOOD COUNT 4.51 10^6/uL (3.72-5.28); RED CELL DISTRIBUTION WIDTH 14.6 % (11.5-14.0); SEGMENTED NEUTROPHILS % (AUTO) 63.7 % (42-78); WHITE BLOOD COUNT 10.3 10^3/uL (4.0-10.5)
[2017-01-31 05:06] LABS: APPEARANCE,URINE SLIGHTLY-CLOUDY; BILIRUBIN,URINE NEGATIVE (NEGATIVE); GLUCOSE, URINE NEGATIVE (NEGATIVE); KETONES,URINE TRACE mg/dL (NEGATIVE); LEUKOCYTE ESTERASE,URINE LARGE (NEGATIVE); NITRITE,URINE NEGATIVE (NEGATIVE); PROTEIN,URINE >=500 mg/dL (NEGATIVE); URINE SPECIFIC GRAVITY 1.022; UROBILINOGEN,URINE NEGATIVE mg/dL (<2.0)
[2017-01-31 05:12] LABS: ALANINE AMINOTRANSFERASE 30 U/L (9-52); ALBUMIN 4.2 g/dL (3.5-5.0); ALKALINE PHOSPHATASE 92 U/L (38-126); ANION GAP 14 (5-19); ASPARTATE AMINO TRANSFERASE 31 U/L (14-36); BILIRUBIN,DIRECT 0.4 mg/dL (0.0-0.4); BILIRUBIN,TOTAL 0.7 mg/dL (0.2-1.3); BLOOD UREA NITROGEN 23 mg/dL (7-20); CALCIUM 9.8 mg/dL (8.4-10.2); CARBON DIOXIDE 26 mmol/L (22-30); CHLORIDE 105 mmol/L (98-107); CREATININE RESULT 1.27 mg/dL (0.52-1.25); GLUCOSE 106 mg/dL (75-110); LIPASE 69.8 U/L (23-300); SODIUM 144.5 mmol/L (137-145); TOTAL PROTEIN 7.4 g/dL (6.3-8.2)
[2017-01-31 05:16] LABS: POTASSIUM 2.9 mmol/L (3.6-5.0)
--- NOTE | 2017-01-31 05:27 | RADIOLOGY REPORT (SQ) ---
EXAM DESCRIPTION: U/S ABDOMEN LTD W/DOPPLER COMPLETED DATE/TIME: 01/31/2017 5:11 am REASON FOR STUDY: RUQ abdominal pain COMPARISON: 01/02/2017. TECHNIQUE: Dynamic and static grayscale images acquired of the abdomen and recorded on PACS. Additio nal selected color Doppler and spectral images recorded. LIMITATIONS: None. FINDINGS: PANCREAS: No masses. No peripancreatic edema or fluid collections. LIVER: Echotexture is coarse with increased echogenicity consistent with fatty infiltration. LIVER VASCULATURE: Normal directional flow of the main portal vein and hepatic veins. GALLBLADDER: Gallstone(s). No pericholecystic fluid. No wall thickening. ULTRASOUND-DETECTED GEORGE'S SIGN: Negative. INTRAHEPATIC DUCTS AND COMMON DUCT: CBD and intrahepatic ducts normal caliber. No filling defects. INFERIOR VENA CAVA: Normal flow. AORTA: No aneurysm. RIGHT KIDNEY: Normal size. Normal echogenicity. 4.2 cm cyst. No solid or suspicious masses. No hyd ronephrosis. No calcifications. PERITONEAL AND RIGHT PLEURAL SPACE: No ascites or effusions. OTHER: No other significant finding. IMPRESSION: 1. GALLSTONE. 2. CORTICAL CYST IN THE RIGHT KIDNEY. 3. FATTY INFILTRATION OF THE LIVER. OTHERWISE NORMAL RIGHT UPPER QUADRANT ULTRASOUND. TECHNICAL DOCUMENTATION: JOB ID: [id number] [employer]- All Rights Reserved
[2017-01-31] MEDS ORDERED: POTASSIUM CHLORIDE 10 MEQ TABLET.SA PO ONE (05:31)
--- NOTE | 2017-01-31 05:58 | EKG REPORT ---
SEVERITY:- ABNORMAL ECG - SINUS RHYTHM VENTRICULAR PREMATURE COMPLEX PROBABLE LEFT ATRIAL ABNORMALITY LEFT AXIS DEVIATION LEFT VENTRICULAR HYPERTROPHY BORDERLINE T ABNORMALITIES, INFERIOR LEADS BORDERLINE PROLONGED QT INTERVAL : Confirmed by: Katherine Weiss MD 31-Jan-2017 05:57:54
[2017-01-31] MEDS ORDERED: FENTANYL CITRATE INJ/PF 100 MCG/2 ML AMPUL IV ONE (06:48)
[2017-01-31] MEDS ORDERED: HYDROMORPHONE HCL INJ/PF 2 MG/ML AMPULE IV ONE (07:41)
[2017-01-31] MEDS ORDERED: POTASSI CL 20 MEQ/50 ML RIDER 50 ML IV ONE (08:41)
[2017-01-31] MEDS ORDERED: GLUCAGON,HUMAN RECOMB 1 MG INJ SUBCUT PRN (10:29)
[2017-01-31] MEDS ORDERED: DEXTROSE 50%-WATER 25 GM/50 ML DISP.SYRIN IV PRN ×4 (10:29→14:48)
[2017-01-31] MEDS ORDERED: DEXTROSE 40% GEL 15 GM TUBE PO PRN ×4 (10:29→14:48)
--- NOTE | 2017-01-31 12:11 | PDOC CONSULTATION ---
Consultation Consult Date: 01/31/17 Consult reason:: Medical clearance History of Present Illness Admission Date/PCP: 01/31/17 09:06 JONATHON RODRIGEZ Patient complains of: Abdominal pain History of Present Illness: This is a 51-year-old -[place] female with a past medical history significant for dyslipidemia CHF with her last Being a year ago, hypertension, diabetes mellitus, asthma who presents to the service for medical clearance. According to the patient she has been having right upper quadrant and epigastric pain now for the last couple of months. This is been getting progressively worse and is associated with eating. Patient presented here to the hospital and was seen by the general surgery service. Their plans are to take her to the OR later this afternoon for lap cholecystectomy. Patient did have an ultrasound in the emergency room and was found to have gallstones. Her cardiac history goes the patient states that several years ago she was having chest discomfort that ultimately led to cardiac cath in 2009. She says that she never got any stents placed and that she was told that she did not have any blockages. Her last cardiac echo was done last month with Dr. Benavides. Echocardiogram at that time revealed normal EF of 60% with trace mitral and tricuspid regurgitation and grade 2 diastolic dysfunction. The patient states that her last CHF flare was about a year ago and that she has not had any trouble since then. She used to follow with Dr. Kwon for her cardiology need but it seems as though she has been following with Dr. Benavides most recently. In terms of her diabetes the patient states that she cannot remember her last hemoglobin A1c but that her blood sugars usually run between 86 and 120. She has a history of MELLY and states that she wears her CPAP reliably even during naps. Dr. Benavides has been gracious and accessed her CPAP download from her last visit and the patient has been noncompliant, using her machine less than 4 hours a day. At the bedside the patient still complains of abdominal pain. She is noted to have a low potassium which is currently being replaced. Past Medical History Cardiac Medical History: Reports: Congestive Heart Failure, Coronary Artery Disease, Hyperlipidema, Hypertension Denies: Myocardial Infarction Pulmonary Medical History: Reports: Asthma Neurological Medical History: Reports: Migraine Endocrine Medical History: Reports: Diabetes Mellitus Type 2 Musculoskeltal Medical History: Reports: Arthritis Psychiatric Medical History: Reports: Depression Past Surgical History Past Surgical History: Reports: Adenoidectomy, Cardiac Catheterization, Coronary Stent - x4 in 2009 according to the patient, Hysterectomy, Tonsillectomy, Tubal Ligation Social History Information Source: Patient Lives with: Alone Smoking Status: Never Smoker Frequency of Alcohol Use: Occasional - Patient states she might consume 20 drinks a year Hx Recreational Drug Use: No Hx Prescription Drug Abuse: No - Advance Directive Resuscitation Status: Full Code Family History Family History: Arthritis, CAD, DM, Hyperlipidemia, Hypertension, Malignancy, Thyroid Disfunction, Other - kidney disease Parental Family History Reviewed: Yes Children Family History Reviewed: Yes Sibling(s) Family History Reviewed.: Yes Medication/Allergy Allergies/Adverse Reactions: acetaminophen [Acetaminophen] Allergy (Severe, Verified 09/19/16 01:01) itching Shellfish * [Shellfish] Allergy (Severe, Verified 09/19/16 01:01) itch, rash Sulfa (Sulfonamide Antibiotics) Allergy (Severe, Verified 09/19/16 01:01) Hives Iodinated Contrast- Oral and IV Dye [IV Dye, Iodine Containing] Allergy ( Intermediate, Verified 09/19/16 01:01) rash, itching iodine [Iodine] Allergy (Intermediate, Verified 09/19/16 01:01) itch, rash Review of Systems Review of Systems: Review of systems is positive as listed in the HPI in addition to this the patient denies any blood in the stool, urine, and emesis with blood, coughing up blood. She denies diarrhea, fever, nausea, vomiting, chills, visual changes , heat or cold intolerance. She admits to degenerative joint disease in the back as well as constipation. Physical Exam Vital Signs: Temp Pulse Resp BP Pulse Ox 98.1 F 116 H 18 148/96 H 96 01/31/17 10:13 01/31/17 10:13 01/31/17 07:12 01/31/17 10:13 01/31/17 10:13 GENERAL: This is a well-developed well-nourished morbidly obese - [place] female currently resting in bed in no acute distress. HEART: Regular rate and rhythm. 1/6 systolic ejection murmur. No gallops or rub. At the bedside blood pressure is currently 169/108. LUNGS: [Clear to auscultation bilaterally with equal rise and fall of the chest. ] ABDOMEN: Soft, tender to palpation in the right upper quadrant. No radiation of pain up to the right shoulder. Nondistended. Normal active bowel sounds. EXTREMETIES: [No clubbing, cyanosis or edema. 2+ peripheral pulses bilaterally. Strength is 5 out of 5 in both the upper and lower extremities bilaterally.] NEURO: [Awake, alert and oriented 3. Cranial nerves II through XII are specifically intact. Speech is fluent.] Results Impressions: Abdomen Ultrasound 01/31/17 03:58 IMPRESSION: 1. GALLSTONE. 2. CORTICAL CYST IN THE RIGHT KIDNEY. 3. FATTY INFILTRATION OF THE LIVER. OTHERWISE NORMAL RIGHT UPPER QUADRANT ULTRASOUND. Assessment & Plan - Diagnosis (1) Preoperative clearance Plan: Patient was evaluated. She has a history of congestive heart failure and is not in any acute failure. She had an echocardiogram a month ago which shows a normal EF. He is on a beta-sahara, clonidine and triamterene HCTZ as well as amlodipine each of these medications should be continued. The patient also is a known diabetic. it is unclear as to what kind of control she truly has when she is at home. However her current blood sugar here in the hospital is 106. Based on all of her current comorbid conditions and the fact that this is a low risk endoscopic surgery, the patient is at intermediate risk for perioperative cardiac morbidity. (2) Diabetes Qualifiers: Diabetes mellitus type: type 2 Plan: Check hemoglobin A1c. Ensure sliding scale insulin is available. We will reconcile no medications. (3) Cholelithiasis Qualifiers: Cholelithiasis location: gallbladder Cholecystitis presence: without cholecystitis Biliary obstruction: without biliary obstruction Qualified Code(s): K80.20 - Calculus of gallbladder without cholecystitis without obstruction (4) Hypokalemia Plan: The patient has received 20 mEq p.o. and is receiving another 20 mEq IV. We will recheck his potassium prior to going to the OR but I suspect she will need more. (6) Hypertension Plan: Patient's blood pressure is currently elevated. I suspect that this is because she has not received her morning meds today from due to coming into the hospital. We will ensure that she has been prior to surgery. Patient should be maintained on her usual medications prior to surgery. (7) Obesity Qualifiers: Obesity type: due to excess calories Obesity classification: adult class 3 (BMI >= 40) Body mass index: BMI 45.0-49.9 Plan: Weight loss through dietary changes and exercise as tolerated (8) Osteoarthritis Qualifiers: Osteoarthritis location: multiple joints Plan: Patient is on chronic pain medications for back pain.
[2017-01-31] MEDS: CEFAZOLIN SODIUM 2 GM in DEXTROSE 5%-WATER 100 ML IV SCH ×2 (13:19→21:46)
[2017-01-31 14:11] LABS: ANION GAP 11 (5-19); BLOOD UREA NITROGEN 18 mg/dL (7-20); CALCIUM 9.6 mg/dL (8.4-10.2); CARBON DIOXIDE 28 mmol/L (22-30); CHLORIDE 106 mmol/L (98-107); CREATININE RESULT 1.22 mg/dL (0.52-1.25); GLUCOSE 101 mg/dL (75-110); POTASSIUM 3.4 mmol/L (3.6-5.0); SODIUM 144.7 mmol/L (137-145)
[2017-01-31] MEDS ORDERED: METOPROLOL SUCCINATE 50 MG TAB.SR.24H PO ONE (14:30)
--- NOTE | 2017-01-31 14:46 | PDOC H&P ---
History of Present Illness Admission Date/PCP: 01/31/17 09:06 JONATHON RODRIGEZ Patient complains of: Complaining of right upper quadrant and epigastric pains radiating to the back and this is associated with nausea and vomiting History of Present Illness: This is a 51-year-old -[place]ese female with a past medical history significant for dyslipidemia CHF with her last Being a year ago, hypertension, diabetes mellitus, asthma. According to the patient she has been having right upper quadrant and epigastric pain now for the last couple of months. This is been getting progressively worse and is associated with eating. Patient also worsening pains last night associated nausea and vomiting. Patient did have an ultrasound in the emergency room and was found to have gallstones. At the bedside the patient still complains of abdominal pain. She is noted to have a low potassium which is currently being replaced. His pain is not controlled by low-dose Dilaudid and patient complaining a lot of pains to the point where she wants her laparoscopic cholecystectomy done today if possible. The ultrasound showed a possible gallstone right and cystic duct area causing a lot of pain. Past Medical History Cardiac Medical History: Reports: Congestive Heart Failure, Coronary Artery Disease, Hyperlipidema, Hypertension Denies: Myocardial Infarction Pulmonary Medical History: Reports: Asthma Denies: Bronchitis, Chronic Obstructive Pulmonary Disease (COPD), Pneumonia, Tuberculosis Neurological Medical History: Reports: Migraine Denies: Seizures Endocrine Medical History: Reports: Diabetes Mellitus Type 2 Musculoskeltal Medical History: Reports: Arthritis Psychiatric Medical History: Reports: Depression Past Surgical History Past Surgical History: Reports: Adenoidectomy, Cardiac Catheterization, Coronary Stent - x4 in 2009 according to the patient, Hysterectomy, Tonsillectomy, Tubal Ligation Denies: Pacemaker Social History Lives with: Alone Smoking Status: Never Smoker Frequency of Alcohol Use: Occasional - Patient states she might consume 20 drinks a year Hx Recreational Drug Use: No Drugs: None Hx Prescription Drug Abuse: No - Advance Directive Resuscitation Status: Full Code Family History Family History: Arthritis, CAD, DM, Hyperlipidemia, Hypertension, Malignancy, Thyroid Disfunction, Other - kidney disease Parental Family History Reviewed: No - Not pertinent Children Family History Reviewed: NA Sibling(s) Family History Reviewed.: NA Medication/Allergy Home Medications: Allopurinol [Zyloprim 300 mg Tablet] 300 mg PO DAILY 01/31/17 Amlodipine Besylate [Norvasc 5 mg Tablet] 5 mg PO DAILY 01/31/17 Aspirin [Aspirin 81 mg Chewable Tablet] 81 mg PO DAILY 01/31/17 Clobetasol Propionate [Clobetasol Propionate Solution] 1 applic TP BID 01/31/17 Clonidine HCl [Catapres 0.3 mg Tablet] 0.3 mg PO Q8HP PRN 01/31/17 Dicyclomine HCl [Bentyl 20 mg Tablet] 20 mg PO Q6 01/31/17 Ergocalciferol (Vitamin D2) [Drisdol 50,000 Unit (1.25MG) Capsule] 1 cap PO MO@ 1000 01/31/17 Fluocinolone/Shower Cap [Fluocinolone 0.01% Scalp Oil] 1 applic TP ASDIR PRN Furosemide [Lasix 20 mg Tablet] 20 mg PO Q48H PRN 01/31/17 Ketoconazole [Nizoral 2% Shampoo 120 Ml Bottle] 1 applic TP ASDIR PRN 01/31/17 Metformin HCl [Glucophage] 500 mg PO [id number] 01/31/17 Metoprolol Succinate [Toprol XL 100 mg Tablet] 100 mg PO DAILY 01/31/17 Omeprazole 40 mg PO DAILY 01/31/17 Oxycodone HCl [Oxy-Ir 5 mg Tablet] 15 mg PO Q8HP PRN 01/31/17 Potassium Chloride [Klor-Con Sprinkle] 10 meq PO DAILY 01/31/17 Simvastatin 40 mg PO QHS 01/31/17 Tramadol HCl [Ultram 50 mg Tablet] 50 mg PO Q12HP PRN 01/31/17 Allergies/Adverse Reactions: acetaminophen [Acetaminophen] Allergy (Severe, Verified 09/19/16 01:01) itching Shellfish * [Shellfish] Allergy (Severe, Verified 09/19/16 01:01) itch, rash Sulfa (Sulfonamide Antibiotics) Allergy (Severe, Verified 09/19/16 01:01) Hives Iodinated Contrast- Oral and IV Dye [IV Dye, Iodine Containing] Allergy ( Intermediate, Verified 09/19/16 01:01) rash, itching iodine [Iodine] Allergy (Intermediate, Verified 09/19/16 01:01) itch, rash Review of Systems Constitutional: ABSENT: chills, fever(s), headache(s), weight gain, weight loss Eyes: ABSENT: visual disturbances Ears: ABSENT: hearing changes Cardiovascular: ABSENT: chest pain, dyspnea on exertion, edema, orthropnea, palpitations Respiratory: ABSENT: cough, hemoptysis Gastrointestinal: PRESENT: as per HPI - Abdominal pains with nausea.. ABSENT: abdominal pain, constipation, diarrhea, hematemesis, hematochezia, nausea, vomiting Genitourinary: ABSENT: dysuria, hematuria Musculoskeletal: ABSENT: joint swelling Integumentary: ABSENT: rash, wounds Neurological: ABSENT: abnormal gait, abnormal speech, confusion, dizziness, focal weakness, syncope Psychiatric: ABSENT: anxiety, depression, homidical ideation, suicidal ideation Endocrine: ABSENT: cold intolerance, heat intolerance, polydipsia, polyuria Hematologic/Lymphatic: ABSENT: easy bleeding, easy bruising Physical Exam Vital Signs: Temp Pulse Resp BP Pulse Ox 98.1 F 116 H 18 148/96 H 96 01/31/17 10:13 01/31/17 10:13 01/31/17 07:12 01/31/17 10:13 01/31/17 10:13 General appearance: PRESENT: obese, other - In moderate to severe abdominal pains Head exam: PRESENT: atraumatic, normocephalic Eye exam: PRESENT: conjunctiva pink, EOMI, PERRLA. ABSENT: scleral icterus Mouth exam: PRESENT: moist, tongue midline Respiratory exam: PRESENT: clear to auscultation elisa Cardiovascular exam: PRESENT: RRR Pulses: PRESENT: normal femoral pulses Vascular exam: PRESENT: normal capillary refill GI/Abdominal exam: PRESENT: other - Skin is tender in the epigastric area on the right upper quadrant Rectal exam: PRESENT: deferred Extremities exam: PRESENT: full ROM Musculoskeletal exam: PRESENT: normal inspection Neurological exam: PRESENT: alert, awake, oriented to person, oriented to place , oriented to time, oriented to situation, CN II-XII grossly intact. ABSENT: motor sensory deficit Psychiatric exam: PRESENT: appropriate affect, depressed, normal mood. ABSENT: homicidal ideation, suicidal ideation Skin exam: PRESENT: dry, intact, warm. ABSENT: cyanosis, rash Additional comments: Complaining of back pains but she feels that her abdominal pains is really worse than her back pains Results Laboratory Results: Labs- Last Values WBC 10.3 10^3/uL (4.0-10.5) 01/31/17 04:36 RBC 4.51 10^6/uL (3.72-5.28) 01/31/17 04:36 Hgb 13.1 g/dL (12.0-15.5) 01/31/17 04:36 Hct 39.6 % (36.0-47.0) 01/31/17 04:36 MCV 88 fl (80-97) 01/31/17 04:36 MCH 29.0 pg (27.0-33.4) 01/31/17 04:36 MCHC 33.1 g/dL (32.0-36.0) 01/31/17 04:36 RDW 14.6 % (11.5-14.0) H 01/31/17 04:36 Plt Count 223 10^3/uL (150-450) 01/31/17 04:36 Seg Neutrophils % 63.7 % (42-78) 01/31/17 04:36 Lymphocytes % 27.8 % (13-45) 01/31/17 04:36 Monocytes % 6.3 % (3-13) 01/31/17 04:36 Eosinophils % 1.6 % (0-6) 01/31/17 04:36 Basophils % 0.6 % (0-2) 01/31/17 04:36 Absolute Neutrophils 6.6 10^3/uL (1.7-8.2) 01/31/17 04:36 Absolute Lymphocytes 2.9 10^3/uL (0.5-4.7) 01/31/17 04:36 Absolute Monocytes 0.6 10^3/uL (0.1-1.4) 01/31/17 04:36 Absolute Eosinophils 0.2 10^3/uL (0.0-0.6) 01/31/17 04:36 Absolute Basophils 0.1 10^3/uL (0.0-0.2) 01/31/17 04:36 Sodium 144.7 mmol/L (137-145) 01/31/17 13:22 Potassium 3.4 mmol/L (3.6-5.0) L 01/31/17 13:22 Chloride 106 mmol/L (98-107) 01/31/17 13:22 Carbon Dioxide 28 mmol/L (22-30) 01/31/17 13:22 Anion Gap 11 (5-19) 01/31/17 13:22 BUN 18 mg/dL (7-20) 01/31/17 13:22 Creatinine 1.22 mg/dL (0.52-1.25) 01/31/17 13:22 Est GFR ( Amer) 56 (>60) L 01/31/17 13:22 Est GFR (Non-Af Amer) 46 (>60) L 01/31/17 13:22 Glucose 101 mg/dL (75-110) 01/31/17 13:22 Calcium 9.6 mg/dL (8.4-10.2) 01/31/17 13:22 Magnesium 1.6 mg/dL (1.6-2.3) 01/31/17 04:36 Total Bilirubin 0.7 mg/dL (0.2-1.3) 01/31/17 04:36 Direct Bilirubin 0.4 mg/dL (0.0-0.4) 01/31/17 04:36 Indirect Bilirubin Not Reportable 01/31/17 04:36 Neonat Total Bilirubin Not Reportable 01/31/17 04:36 AST 31 U/L (14-36) 01/31/17 04:36 ALT 30 U/L (9-52) 01/31/17 04:36 Alkaline Phosphatase 92 U/L (38-126) 01/31/17 04:36 Total Protein 7.4 g/dL (6.3-8.2) 01/31/17 04:36 Albumin 4.2 g/dL (3.5-5.0) 01/31/17 04:36 Lipase 69.8 U/L (23-300) 01/31/17 04:36 Urine Color YELLOW 01/31/17 04:40 Urine Appearance SLIGHTLY-CLOUDY 01/31/17 04:40 Urine pH 5.0 (5.0-9.0) 01/31/17 04:40 Ur Specific [place] 1.022 01/31/17 04:40 Urine Protein >=500 mg/dL (NEGATIVE) H 01/31/17 04:40 Urine Glucose (UA) NEGATIVE mg/dL (NEGATIVE) 01/31/17 04:40 Urine Ketones TRACE mg/dL (NEGATIVE) H 01/31/17 04:40 Urine Blood NEGATIVE (NEGATIVE) 01/31/17 04:40 Urine Nitrite NEGATIVE (NEGATIVE) 01/31/17 04:40 Urine Bilirubin NEGATIVE (NEGATIVE) 01/31/17 04:40 Urine Urobilinogen NEGATIVE mg/dL (<2.0) 01/31/17 04:40 Ur Leukocyte Esterase LARGE (NEGATIVE) H 01/31/17 04:40 Urine WBC (Auto) 9 /HPF 01/31/17 04:40 Urine RBC (Auto) 4 /HPF 01/31/17 04:40 Urine Bacteria (Auto) TRACE /HPF 01/31/17 04:40 Squamous Epi Cells Auto 3 /HPF 01/31/17 04:40 Urine Mucus (Auto) RARE /LPF 01/31/17 04:40 Urine Ascorbic Acid NEGATIVE (NEGATIVE) 01/31/17 04:40 Impressions: Abdomen Ultrasound 01/31/17 03:58 IMPRESSION: 1. GALLSTONE. 2. CORTICAL CYST IN THE RIGHT KIDNEY. 3. FATTY INFILTRATION OF THE LIVER. OTHERWISE NORMAL RIGHT UPPER QUADRANT ULTRASOUND. Assessment & Plan - Diagnosis (1) Cholelithiasis Qualifiers: Cholelithiasis location: gallbladder Cholecystitis presence: without cholecystitis Biliary obstruction: without biliary obstruction Qualified Code(s): K80.20 - Calculus of gallbladder without cholecystitis without obstruction Plan: 1 possible lap jackie today (2) Hypokalemia Is this a current diagnosis for this admission?: YesPlan: Potassium replacement through K rider and also p.o. potassium given in the ER (3) Back pain Qualifiers: Back pain location: low back pain Chronicity: chronic Back pain laterality: unspecified Sciatica presence: unspecified whether sciatica present Qualified Code(s): M54.5 - Low back pain; G89.29 - Other chronic pain Is this a current diagnosis for this admission?: YesPlan: He will be returned to her pain management Dr Jonathon Rodrigez. (4) Chest pain Qualifiers: Chest pain type: unspecified Qualified Code(s): R07.9 - Chest pain, unspecified Is this a current diagnosis for this admission?: YesPlan: Hospitalist taking care of this problem - Time Time Spent: 30 to 50 Minutes - Inpatient Certification Based on my medical assessment, after consideration of the patient's comorbidities, presenting symptoms, or acuity I expect that the services needed warrant INPATIENT care.: No I certify that my determination is in accordance with my understanding of Medicare's requirements for reasonable and necessary INPATIENT services [42 CFR 412.3e].: No Post Hospital Care: D/C or Transfer Summary - Discharge to home after lap jackie
[2017-01-31] MEDS: NORMAL SALINE 1000 ML 1,000 ML IV PRN ×2 (14:47→21:45)
[2017-01-31] MEDS ORDERED: INSULIN REG, HUMAN 100 UNIT/ML 3 ML VIAL (PYX) SUBCUT PRN (14:48)
[2017-01-31] MEDS ORDERED: GLUCAGON,HUMAN RECOMB 1 MG INJ IM PRN (14:48)
[2017-01-31] MEDS: HYDROMORPHONE HCL INJ/PF 2 MG/ML AMPULE IV PRN ×2 (15:05→21:28)
[2017-01-31] MEDS ORDERED: ROCURONIUM BROMIDE INJ 50 MG/5 ML VIAL IV ONE (16:02)
[2017-01-31] MEDS ORDERED: LIDOCAINE 2% INJ-PF (20 MG/ML) 10 ML AMPUL ONE (16:02)
[2017-01-31] MEDS ORDERED: SUCCINYLCHOLINE CHLORIDE INJ 200 MG/10 ML VIAL ONE (16:02)
[2017-01-31] MEDS ORDERED: KETOROLAC TROMETHAMINE 60 MG/2 ML SDV ONE (16:02)
[2017-01-31] MEDS ORDERED: ONDANSETRON HCL INJ/PF 4 MG/2 ML SDV ONE ×2 (16:02→16:33)
[2017-01-31] MEDS ORDERED: DEXAMETHASONE SOD PHOSPHATE INJ 4 MG/1 ML VIAL ONE (16:02)
[2017-01-31] MEDS ORDERED: BUPIVACAINE HCL 0.25 % INJ/PF (2.5 MG/1 ML) 30 ML VIAL ONE ×2 (17:11→17:42)
[2017-01-31] MEDS ORDERED: PROPOFOL INJ 200 MG/20 ML VIAL IV ONE (17:26)
[2017-01-31] MEDS ORDERED: MIDAZOLAM 2 MG/2 ML INJ ONE (17:26)
[2017-01-31] MEDS ORDERED: FENTANYL CITRATE INJ/PF 250 MCG/5 ML AMPULE ONE (17:26)
[2017-01-31] MEDS ORDERED: MORPHINE SULFATE 10 MG/ML INJ ONE (17:27)
[2017-01-31] MEDS ORDERED: OXYCODONE-ACETAMINOPHEN 5-325 MG TABLET PO PRN ×2 (18:07)
[2017-01-31] MEDS ORDERED: PROMETHAZINE HCL INJ 25 MG/1 ML VIAL IV PRN ×2 (18:07)
[2017-01-31] MEDS ORDERED: MEPERIDINE HCL/PF INJ 25 MG/1 ML DISP.SYRIN IV PRN (18:07)
[2017-01-31] MEDS ORDERED: FENTANYL CITRATE INJ/PF 100 MCG/2 ML AMPUL IV PRN ×3 (18:07)
[2017-01-31] MEDS ORDERED: DIPHENHYDRAMINE HCL 50 MG/ML VIAL IV PRN (18:07)
[2017-01-31] MEDS ORDERED: MORPHINE SULFATE 10 MG/ML INJ IV PRN (18:07)
--- NOTE | 2017-01-31 20:14 | OPERATIVE REPORT E ---
Operative Report NAME: HAJA DONG : 1965 AGE: 51Y DATE OF SURGERY: 01/31/2017 ROOM: 208 PREOPERATIVE DIAGNOSIS: Cholelithiasis and early acute cholecystitis. POSTOPERATIVE DIAGNOSIS: Cholelithiasis and early acute cholecystitis. OPERATION: Laparoscopic cholecystectomy. SURGEON: BRIDGETTE MELCHOR M.D. ANESTHESIA: General INDICATIONS: This is a 51-year-old female with known gallstones and right upper quadrant pains in the past. The pain usually subsides spontaneously however last night pains worsened and patient went to the emergency room. Ultrasound of the gallbladder showed gallstones but no evidence of acute cholecystitis. Because patient barely controlled with Dilaudid IV pain medicine, patient was taken to the OR for laparoscopic cholecystectomy after medical clearance. FINDINGS: Cholelithiasis, gallbladder noted to be tense but able to put graspers on. Patient also has fatty liver. PROCEDURE: After adequate general anesthesia, the patient was placed in the supine position and the abdomen prepped and draped in the usual sterile fashion. An appropriate timeout was then performed. Next, a large infraumbilical incision was made and deepened through subcutaneous thick fatty layer with blunt dissection. The fascia was then identified and grasped with two Ricci clamps and divided between the clamps. Next, the abdominal cavity was then entered with a long hemostat and further dilated with thicker dissection. The Manjeet trocar was then inserted through the fascia into the abdominal cavity and CO2 insufflated up to a pressure of 15 mmHg. Next, three other trocars were placed, a 12 mm in the subxiphoid area and then two 5 mm in the right upper quadrant. The gallbladder was then identified and noted to have minimal thickening of the wall however it was noted to be quite tense, however, I was able to put a grasper on the tip of the gallbladder and pulled it up over the liver. Another grasper placed at the infundibulum. Cystic duct was then identified and dissected and clipped with hemoclips and divided between the hemoclips. About 3 hemoclips were placed on the proximal side. Next the cystic artery was identified and clipped with hemoclips and divided and cauterized with Harmonic christy between the clip and the gallbladder. The gallbladder was then dissected off the liver bed. The liver was fatty and the gallbladder was able to be pulled up bluntly. Part of the gallbladder wall was then divided with the use of Harmonic christy. The gallbladder was then completely removed and placed in an Endobag and pulled out through the umbilical port. The gallbladder was noted to have a palpable stone. The gallbladder was initially opened from inside the sac to suction out the bile to allow removal through the umbilical port. Following this, the liver bed was then irrigated with saline solution and no evidence of active bleeding noted, however, there is some clots noted that were irrigated and suctioned out. A piece of Surgicel was then placed inside the liver bed to aid in hemostasis. A round drain catheter was then placed in the area of the liver bed and towards the foramen of [place]. It was then anchored to the skin with 3-0 silk. It was pulled out through the right most lateral trocar site. Next, the trocars were removed and no evidence of bleeding noted, at least on the subxiphoid area. The fascia at the infraumbilical area was then closed with a [id number] suture using 0 Vicryl. All of the skin incisions were then closed with running subcuticular 4-0 Vicryl undyed. Sterile dressings were then placed over the operative sites. Needle, instrument, and sponge counts were correct. Estimated blood loss was about 30 mL. The patient was then brought to the recovery room in satisfactory condition. DICTATING PHYSICIAN: BRIDGETTE MELCHOR M.D. [id number] PHY#: [id number] ID: [id number] JOB#: [id number] ACCT: [id number] cc:BRIDGETTE MELCHOR M.D. >
[2017-01-31] MEDS: ONDANSETRON HCL INJ/PF 4 MG/2 ML SDV IV PRN (22:31)
[2017-02-01] MEDS: HYDROMORPHONE HCL INJ/PF 2 MG/ML AMPULE IV PRN ×2 (01:17→04:48)
[2017-02-01] MEDS ORDERED: HYDROMORPHONE HCL INJ/PF 2 MG/ML AMPULE IV PRN (05:03)
[2017-02-01] MEDS ORDERED: METOPROLOL TARTRATE 100 MG TABLET PO ONE (05:15)
[2017-02-01] MEDS ORDERED: METOPROLOL TARTRATE 100 MG TABLET ONE (05:44)
[2017-02-01] MEDS: CEFAZOLIN SODIUM 2 GM in DEXTROSE 5%-WATER 100 ML IV SCH ×2 (05:57→15:29)
[2017-02-01] MEDS: ONDANSETRON HCL INJ/PF 4 MG/2 ML SDV IV PRN (06:04)
[2017-02-01] MEDS ORDERED: (PENDING PHARMACY ID) (Clonidine Hcl [Catapres 0.3 Mg Tablet] 0.3 MG) PO PRN (07:16)
[2017-02-01] MEDS ORDERED: POTASSI CL 20 MEQ/50 ML RIDER 20 MEQ/50 ML RTUPB IV ONE (07:23)
[2017-02-01 07:55] LABS: ABSOLUTE LYMPHOCYTES (AUTO) 0.9 10^3/uL (0.5-4.7); ABSOLUTE MONOCYTES (AUTO) 0.6 10^3/uL (0.1-1.4); ABSOLUTE NEUT (AUTO) 11.2 10^3/uL (1.7-8.2); BASOPHILS % (AUTO) 0.3 % (0-2); HEMATOCRIT 38.8 % (36.0-47.0); HEMOGLOBIN 12.8 g/dL (12.0-15.5); HGB HCT DIFFERENCE -0.4; LYMPHOCYTES % (AUTO) 7.3 % (13-45); MEAN CORPUSCULAR HEMOGLOBIN 29.6 pg (27.0-33.4); MEAN CORPUSCULAR VOLUME 90 fl (80-97); MONOCYTES % (AUTO) 4.9 % (3-13); RED BLOOD COUNT 4.33 10^6/uL (3.72-5.28); SEGMENTED NEUTROPHILS % (AUTO) 87.5 % (42-78); WHITE BLOOD COUNT 12.8 10^3/uL (4.0-10.5)
[2017-02-01 08:18] LABS: ALANINE AMINOTRANSFERASE 38 U/L (9-52); ALBUMIN 4.2 g/dL (3.5-5.0); ALKALINE PHOSPHATASE 84 U/L (38-126); ANION GAP 11 (5-19); ASPARTATE AMINO TRANSFERASE 54 U/L (14-36); BILIRUBIN,DIRECT 0.3 mg/dL (0.0-0.4); BILIRUBIN,TOTAL 0.5 mg/dL (0.2-1.3); BLOOD UREA NITROGEN 17 mg/dL (7-20); CALCIUM 9.7 mg/dL (8.4-10.2); CARBON DIOXIDE 27 mmol/L (22-30); CHLORIDE 106 mmol/L (98-107); CREATININE RESULT 1.22 mg/dL (0.52-1.25); GLUCOSE 141 mg/dL (75-110); LIPASE 45.6 U/L (23-300); POTASSIUM 3.9 mmol/L (3.6-5.0); SODIUM 143.9 mmol/L (137-145)
[2017-02-01] MEDS: NORMAL SALINE 1000 ML 1,000 ML IV PRN (09:07)
[2017-02-01] MEDS ORDERED: CLONIDINE HCL 0.1 MG TABLET PO PRN (09:36)
[2017-02-01] MEDS ORDERED: METOPROLOL TARTRATE 100 MG TABLET PO SCH (10:00)
[2017-02-01] MEDS ORDERED: AMLODIPINE BESYLATE 5 MG TABLET PO SCH (10:00)
[2017-02-01] MEDS ORDERED: POTASSIUM CHLORIDE 10 MEQ TABLET.SA PO SCH (10:00)
[2017-02-01] MEDS ORDERED: MAGNESIUM OXIDE 400 MG TABLET PO SCH (10:00)
--- NOTE | 2017-02-01 10:05 | PDOC PROGRESS REPORT ---
Subjective Progress Note for:: 02/01/17 Subjective:: Patient is having some postoperative pain. Drain is putting out serosanguineous material, not emptied since last night. Patient has been out of bed. She is having a lot of back pain which is chronic Physical Exam Vital Signs: Temp Pulse Resp BP Pulse Ox 98.6 F 87 16 152/98 H 96 02/01/17 08:38 02/01/17 08:38 02/01/17 08:38 02/01/17 08:38 02/01/17 08:38 Intake & Output 01/31/17 02/01/17 02/02/17 06:59 06:59 06:59 Intake Total 1450 Output Total 510 Balance 940 General appearance: PRESENT: no acute distress GI/Abdominal exam: PRESENT: other - Old blood from 24 hours ago when draining. Some bruising around periumbilical incision. Abdomen is minimally tender. Results Laboratory Results: 02/01/17 07:42 02/01/17 07:42 01/31/17 02/01/17 02/01/17 13:22 07:42 07:42 WBC 12.8 H RBC 4.33 Hgb 12.8 Hct 38.8 MCV 90 MCH 29.6 MCHC 33.0 RDW 15.0 H Plt Count 242 Seg Neutrophils % 87.5 H Lymphocytes % 7.3 L Monocytes % 4.9 Eosinophils % 0.0 Basophils % 0.3 Absolute Neutrophils 11.2 H Absolute Lymphocytes 0.9 Absolute Monocytes 0.6 Absolute Eosinophils 0.0 Absolute Basophils 0.0 Sodium 144.7 143.9 Potassium 3.4 L 3.9 Chloride 106 106 Carbon Dioxide 28 27 Anion Gap 11 11 BUN 18 17 Creatinine 1.22 1.22 Est GFR ( Amer) 56 L 56 L Est GFR (Non-Af Amer) 46 L 46 L Glucose 101 141 H Calcium 9.6 9.7 Total Bilirubin 0.5 AST 54 H ALT 38 Alkaline Phosphatase 84 Total Protein 7.0 Albumin 4.2 Lipase 45.6 Impressions: Abdomen Ultrasound 01/31/17 03:58 IMPRESSION: 1. GALLSTONE. 2. CORTICAL CYST IN THE RIGHT KIDNEY. 3. FATTY INFILTRATION OF THE LIVER. OTHERWISE NORMAL RIGHT UPPER QUADRANT ULTRASOUND. Assessment & Plan - Diagnosis (1) Cholelithiasis Qualifiers: Cholelithiasis location: gallbladder Cholecystitis presence: without cholecystitis Biliary obstruction: without biliary obstruction Qualified Code(s): K80.20 - Calculus of gallbladder without cholecystitis without obstruction Is this a current diagnosis for this admission?: YesPlan: Plan: 1. Patient is 1 day status post laparoscopic cholecystectomy by Dr. Smalls, doing well, no complications. 2. We will leave drain in monitor output and possibly discontinue later today 3. Potassium being replaced with a rider; subsequently plan to Hep-Lock IV 4. Anticipate discharge home the next 12-24 hours. We will get patient up and ambulating.
--- NOTE | 2017-02-01 11:48 | PDOC PROGRESS REPORT ---
Subjective Progress Note for:: 02/01/17 Subjective:: Status post lap cholecystectomy. She is ambulating around the room. No acute events overnight. Her blood pressure is up this morning. The patient usually takes clonidine on an as-needed basis. Unknown when her last dose was. With the administration of the rest of her morning medications her blood pressure has gone down from 180s-150s. Physical Exam Vital Signs: Temp Pulse Resp BP Pulse Ox 98.6 F 87 16 152/98 H 96 02/01/17 08:38 02/01/17 08:38 02/01/17 08:38 02/01/17 08:38 02/01/17 08:38 Intake & Output 01/31/17 02/01/17 02/02/17 06:59 06:59 06:59 Intake Total 1450 Output Total 510 Balance 940 GENERAL: This is a well-developed well-nourished obese -Cong[place]ese female walking around the room in no acute distress HEART: Regular rate and rhythm. 1/6 systolic ejection murmur. No gallops or rub. LUNGS: Clear to auscultation bilaterally with equal rise and fall of the chest. ABDOMEN: Soft, tender to palpation in the right upper quadrant. Drain in place. EXTREMETIES: No clubbing, cyanosis or edema. 2+ peripheral pulses bilaterally. NEURO: Awake, alert and oriented 3. Cranial nerves II through XII are grossly intact. Steady gait. Results Laboratory Results: 02/01/17 07:42 02/01/17 07:42 01/31/17 02/01/17 02/01/17 13:22 07:42 07:42 WBC 12.8 H RBC 4.33 Hgb 12.8 Hct 38.8 MCV 90 MCH 29.6 MCHC 33.0 RDW 15.0 H Plt Count 242 Seg Neutrophils % 87.5 H Lymphocytes % 7.3 L Monocytes % 4.9 Eosinophils % 0.0 Basophils % 0.3 Absolute Neutrophils 11.2 H Absolute Lymphocytes 0.9 Absolute Monocytes 0.6 Absolute Eosinophils 0.0 Absolute Basophils 0.0 Sodium 144.7 143.9 Potassium 3.4 L 3.9 Chloride 106 106 Carbon Dioxide 28 27 Anion Gap 11 11 BUN 18 17 Creatinine 1.22 1.22 Est GFR ( Amer) 56 L 56 L Est GFR (Non-Af Amer) 46 L 46 L Glucose 101 141 H Calcium 9.6 9.7 Total Bilirubin 0.5 AST 54 H ALT 38 Alkaline Phosphatase 84 Total Protein 7.0 Albumin 4.2 Lipase 45.6 Impressions: Abdomen Ultrasound 01/31/17 03:58 IMPRESSION: 1. GALLSTONE. 2. CORTICAL CYST IN THE RIGHT KIDNEY. 3. FATTY INFILTRATION OF THE LIVER. OTHERWISE NORMAL RIGHT UPPER QUADRANT ULTRASOUND. Assessment & Plan - Diagnosis (1) Preoperative clearance Plan: Patient was evaluated. She has a history of congestive heart failure and is not in any acute failure. She had an echocardiogram a month ago which shows a normal EF. He is on a beta-sahara, clonidine and triamterene HCTZ as well as amlodipine each of these medications should be continued. The patient also is a known diabetic. it is unclear as to what kind of control she truly has when she is at home. However her current blood sugar here in the hospital is 106. Based on all of her current comorbid conditions and the fact that this is a low risk endoscopic surgery, the patient is at intermediate risk for perioperative cardiac morbidity. (2) Diabetes Qualifiers: Diabetes mellitus type: type 2 Plan: Hemoglobin A1c is 5.8. The patient's blood sugars have been very well controlled at home to diet as well as metformin. She should continue metformin as an outpatient. (3) Cholelithiasis Qualifiers: Cholelithiasis location: gallbladder Cholecystitis presence: without cholecystitis Biliary obstruction: without biliary obstruction Qualified Code(s): K80.20 - Calculus of gallbladder without cholecystitis without obstruction Is this a current diagnosis for this admission?: YesPlan: Status post lap cholecystectomy. (4) Hypokalemia Is this a current diagnosis for this admission?: YesPlan: Replace again this morning. Continue supplementation as an outpatient as per home medications. (5) Congestive heart failure Plan: The patient has diastolic dysfunction. She is not in acute failure and is euvolemic. Continue maintenance medications as an outpatient to include beta- sahara, calcium channel sahara, furosemide. Will add on SHLOMO inhibitor. (6) Hypertension Plan: The patient's blood pressure has been elevated on this visit. Some of it is likely due to pain. Patient is on as needed clonidine. I am not in favor of using clonidine on an as-needed basis secondary to rebound hypertension. Considering that her blood pressure may be elevated due to pain and that it did come down quite a bit with administration of her other medications, my recommendation would be to watch her blood pressure at this point and add on SHLOMO inhibitor prior to discharge. I suggest lisinopril 20 mg daily to start and discontinuation of clonidine. She will need to follow with her primary care physician Dr. Veras (7) Obesity Qualifiers: Obesity type: due to excess calories Obesity classification: adult class 3 (BMI >= 40) Body mass index: BMI 45.0-49.9 Plan: Weight loss through dietary changes and exercise as tolerated (8) Osteoarthritis Qualifiers: Osteoarthritis location: multiple joints Plan: Patient is on chronic pain medications for back pain. Continue management as an outpatient - Time Time Spent with patient: At this time internal medicine will sign off. Thank you for this consultation. Please feel free to call with questions. Time Spent with patient: 15-24 minutes
[2017-02-01] MEDS ORDERED: KETOROLAC TROMETHAMINE 10 MG TABLET PO PRN (12:47)
[2017-02-01 16:38] VITALS: BP 148/101
--- NOTE | 2017-02-01 18:04 | DISCHARGE SUMMARY E ---
Discharge Summary NAME: HAJA DONG : 1965 AGE: 51Y ADMITTED: 01/31/2017 DISCHARGED: 02/01/2017 REASON FOR ADMISSION: Acute abdominal pain. SUMMARY OF HOSPITALIZATION: The patient is a 51-year-old female who presents to the emergency department complaining of abdominal pain, nausea. She was evaluated and found to have symptoms consistent with acute cholecystitis or cholelithiasis. Please see her admission history and physical document for complete records. The patient was admitted to the surgicalist service for definitive management. The patient was given IV fluids, kept n.p.o. and taken to the operating room by Dr. Bry Rodriguez. She underwent laparoscopic cholecystectomy and drain placement. Postoperatively the patient did well and had reasonable control of her postoperative pain. Because her drain was still putting out some bloody effluence, it was left in place. On her first postoperative day, she was felt have received maximum benefit from the hospitalization and was discharged home in care of family. FINAL DIAGNOSIS: Symptomatic cholelithiasis and cholecystitis, status post laparoscopic cholecystectomy with drain placement. DISPOSITION: The patient was discharged home to care of family. Follow up with [facility] in 3 days. She will call in a few days for followup appointment. Instructions on drain management provided. She will take her home p.o. medications. DICTATING PHYSICIAN: VAISHALI WALLER M.D. [id number] PHY#: [id number] ID: [id number] JOB#: [id number] ACCT: [id number] cc:VAISHALI WALLER M.D., E. R. >
[2017-02-01] MEDS ORDERED: SIMVASTATIN 40 MG TABLET PO SCH (22:00)
== END 2017-02-01 17:20 | disposition home or self-care (01) ==
LOC: ER 02:48 → EH 09:06 → 2N 10:07 → INTOOBSV 10:23 → OBSVTOIN 10:23 → 2N 15:03
PROVIDERS: ATTEND Surgery
PROC: 0FT44ZZ Resection of Gallbladder, Percutaneous Endoscopic Approach (ICD-10-PCS; principal; 2017-01-31 17:00)
DX: K80.10 Calculus of gallbladder with chronic cholecystitis without obstruction (principal); G47.33 Obstructive sleep apnea (adult) (pediatric); Z91.19 Patient's noncompliance with other medical treatment and regimen; E11.9 Type 2 diabetes mellitus without complications; K59.00 Constipation, unspecified; N28.1 Cyst of kidney, acquired; K76.0 Fatty (change of) liver, not elsewhere classified; E87.6 Hypokalemia; E66.09 Other obesity due to excess calories; G89.29 Other chronic pain; M54.5 Low back pain; R07.9 Chest pain, unspecified; I11.0 Hypertensive heart disease with heart failure; I50.30 Unspecified diastolic (congestive) heart failure; M19.90 Unspecified osteoarthritis, unspecified site; G89.18 Other acute postprocedural pain; E78.5 Hyperlipidemia, unspecified; Z90.710 Acquired absence of both cervix and uterus; Z98.51 Tubal ligation status; Z68.42 Body mass index [BMI] 45.0-49.9, adult; Z79.899 Other long term (current) drug therapy; Z79.82 Long term (current) use of aspirin; Z79.84 Long term (current) use of oral hypoglycemic drugs; Z90.721 Acquired absence of ovaries, unilateral; Z87.442 Personal history of urinary calculi
CPT/HCPCS: 93005; 99285; 96375; 96365; 36415 ×2; 87086; 82962; 83690 ×2; 83735; 85025 ×2; 80076; 80048 ×2; 80053; 81001; 83036; 88304 ×2; 76705; 93976; 93010; 47562; G0378 ×2; J2250; J0690 ×2; J3490 ×2; A9270 ×7; J1100; J1885; J3010 ×2; J2270; J1170 ×2; C9113; J0330; J2405 ×2; J3480 ×2; J7030 ×2; J2704; 790; S0164

== ENCOUNTER 2017-02-02 19:20 | Emergency (ER) | payer MEDICARE, MEDICAID ==
[2017-02-02] MEDS ORDERED: ONDANSETRON HCL INJ/PF 4 MG/2 ML SDV IV ONE (20:18)
[2017-02-02] MEDS ORDERED: MORPHINE SULFATE 10 MG/ML INJ IV ONE (20:18)
--- NOTE | 2017-02-02 20:19 | ER Document Report ---
ED GI/ - General Chief Complaint: Post Surgical Pain Stated Complaint: LOWER ABDOMINAL PAIN Time Seen by Provider: 02/02/17 20:06 Notes: Patient is a 51-year-old female that comes emergency department for chief complaint of lower abdominal pain that is worsening since last night. She is status post cholecystectomy laparoscopically and also has a RANJEET drain in place. Gallbladder was removed on Friday by Dr. Rodriguez, patient states that she was doing very well until last night. She denies fever, vomiting, she had a normal bowel movement 2 days ago. She denies dysuria, flank pain. Other past medical history includes partial hysterectomy with right oophorectomy, CAD, type 2 diabetes, and chronic back pain on opioids. TRAVEL OUTSIDE OF THE [place] IN LAST 30 DAYS: No - Related Data Allergies/Adverse Reactions: acetaminophen [Acetaminophen] Allergy (Severe, Verified 02/02/17 19:46) itching Shellfish * [Shellfish] Allergy (Severe, Verified 02/02/17 19:46) itch, rash Sulfa (Sulfonamide Antibiotics) Allergy (Severe, Verified 02/02/17 19:46) Hives Iodinated Contrast- Oral and IV Dye [IV Dye, Iodine Containing] Allergy ( Intermediate, Verified 02/02/17 19:46) rash, itching iodine [Iodine] Allergy (Intermediate, Verified 02/02/17 19:46) itch, rash Past Medical History - General Information source: Patient - Social History Smoking Status: Never Smoker Frequency of alcohol use: None Drug Abuse: None Lives with: Family Family History: Arthritis, CAD, DM, Hyperlipidemia, Hypertension, Malignancy, Thyroid Disfunction, Other - kidney disease - Past Medical History Cardiac Medical History: Reports: Hx Congestive Heart Failure, Hx Coronary Artery Disease, Hx Hypercholesterolemia, Hx Hypertension Denies: Hx Heart Attack Pulmonary Medical History: Reports: Hx Asthma Denies: Hx Bronchitis, Hx COPD, Hx Pneumonia, Hx Tuberculosis Neurological Medical History: Reports: Hx Migraine. Denies: Hx Cerebrovascular Accident, Hx Seizures Endocrine Medical History: Reports: Hx Diabetes Mellitus Type 2 Renal/ Medical History: Reports: Hx Kidney Stones. Denies: Hx Peritoneal Dialysis Musculoskeltal Medical History: Reports Hx Arthritis, Reports Hx Musculoskeletal Deformity Psychiatric Medical History: Reports: Hx Depression Past Surgical History: Reports: Hx Adenoidectomy, Hx Cardiac Catheterization, Hx Coronary Stent - x4 in 2009 according to the patient, Hx Hysterectomy, Hx Tonsillectomy, Hx Tubal Ligation. Denies: Hx Pacemaker - Immunizations Immunizations up to date: Yes Hx Diphtheria, Pertussis, Tetanus Vaccination: Yes Review of Systems - Review of Systems Constitutional: No symptoms reported EENT: No symptoms reported Cardiovascular: No symptoms reported Respiratory: No symptoms reported Gastrointestinal: See HPI Genitourinary: No symptoms reported Female Genitourinary: No symptoms reported Musculoskeletal: No symptoms reported Skin: No symptoms reported Hematologic/Lymphatic: No symptoms reported Neurological/Psychological: No symptoms reported Physical Exam - Vital signs Vitals: Temp Pulse Resp BP Pulse Ox 98.1 F 102 H 22 H 145/114 H 98 02/02/17 19:45 02/02/17 19:45 02/02/17 19:45 02/02/17 19:45 02/02/17 19:45 Interpretation: Normal - General General appearance: Appears well, Alert In distress: None - patient alert and well appearing - HEENT Head: Normocephalic, Atraumatic Eyes: Normal Conjunctiva: Normal Extraocular movements intact: Yes Eyelashes: Normal Pupils: PERRL Mouth/Lips: Normal Mucous membranes: Normal Pharynx: Normal Neck: Normal - Respiratory Respiratory status: No respiratory distress Chest status: Nontender Breath sounds: Normal Chest palpation: Normal - Cardiovascular Rhythm: Regular. No: Tachycardia - no tachycardia on my exam Heart sounds: Normal auscultation, S1 appreciated, S2 appreciated Murmur: No - Abdominal Inspection: Healed incision, Other - exam shows healing wounds over the abdomen , shows bruising just below the umbilicus, there is tenderness in the general lower abdomen, there is no guarding or rigidity. RANJEET drain in place, has small amount of bloody drainage, not clotted off Distension: No distension Bowel sounds: Normal Tenderness: Nontender. No: Tender, Guarding Organomegaly: No organomegaly - Back Back: Normal, Nontender. No: Tender, CVA tenderness - Extremities General upper extremity: Normal inspection, Nontender, Normal color, Normal ROM , Normal temperature General lower extremity: Normal inspection, Nontender, Normal color, Normal ROM , Normal temperature, Normal weight bearing. No: Roe's sign - Neurological Neuro grossly intact: Yes Cognition: Normal Orientation: AAOx4 Lazarus Coma Scale Eye Opening: Spontaneous Lazarus Coma Scale Verbal: Oriented Lazarus Coma Scale Motor: Obeys Commands Lazarus Coma Scale Total: 15 Speech: Normal Motor strength normal: LUE, RUE, LLE, RLE Sensory: Normal - Psychological Associated symptoms: Normal affect, Normal mood - Skin Skin Temperature: Warm Skin Moisture: Dry Skin Color: Normal Course - Re-evaluation Re-evalutation: Postoperative wounds show no evidence of infection. There is generalized lower abdominal tenderness, appears to be mostly over a bruised area, no rigidity, abnormal erythema, no drainage, no fever, patient is not tachycardic on my exam , she is well-appearing. CBC unremarkable, chemistry unremarkable. CAT scan performed with oral contrast, patient states she does follow with oral contrast and she is not sure about IV contrast. CAT scan showed hematoma, shows no acute abnormalities. On reexamination patient continues to be well- appearing. I did discuss with Dr. Sherman, he recommends patient follow up in the office, recommends that patient could potentially have her RANJEET drain removed today, I discussed this with patient, she will not allow me to remove it, she states she will follow-up with the surgical office and she will return if she worsens in any way. Return precautions were discussed. - Vital Signs Vital signs: Temp Pulse Resp BP Pulse Ox 98.1 F 66 18 117/75 95 02/03/17 00:21 02/03/17 00:21 02/03/17 00:21 02/03/17 00:21 02/03/17 00:21 - Laboratory Result Diagrams: 02/02/17 21:20 02/02/17 21:20 Laboratory results interpreted by me: 02/02/17 02/02/17 21:20 21:20 RDW 14.8 H Est GFR (Non-Af Amer) 52 L Glucose 112 H AST 43 H Discharge - Discharge Clinical Impression: Post-op pain Abdominal pain Qualifiers: Abdominal location: generalized Qualified Code(s): R10.84 - Generalized abdominal pain Condition: Stable Disposition: HOME, SELF-CARE Additional Instructions: CAT scan imaging does show a hematoma in the lower abdomen, this should resolve with time. Follow-up closely with the surgical office for additional evaluation and management. Return to the emergency department for any concerning or worsening symptoms including vomiting, fever, increased pain, or any other concerning symptoms. Referrals: JONATHON RODRIGEZ MD [Primary Care Provider] - Follow up as needed
[2017-02-02 21:34] LABS: ABSOLUTE BASOPHILS # (AUTO) 0.1 10^3/uL (0.0-0.2); ABSOLUTE EOSINOPHILS # (AUTO) 0.2 10^3/uL (0.0-0.6); ABSOLUTE LYMPHOCYTES (AUTO) 2.6 10^3/uL (0.5-4.7); ABSOLUTE MONOCYTES (AUTO) 0.7 10^3/uL (0.1-1.4); ABSOLUTE NEUT (AUTO) 5.6 10^3/uL (1.7-8.2); BASOPHILS % (AUTO) 0.7 % (0-2); EOSINOPHILS % (AUTO) 2.1 % (0-6); HEMATOCRIT 37.6 % (36.0-47.0); HEMOGLOBIN 12.5 g/dL (12.0-15.5); HGB HCT DIFFERENCE -0.1; LYMPHOCYTES % (AUTO) 28.1 % (13-45); MEAN CORPUSCULAR HEMOGLOBIN 29.5 pg (27.0-33.4); MEAN CORPUSCULAR HGB CONC 33.1 g/dL (32.0-36.0); MEAN CORPUSCULAR VOLUME 89 fl (80-97); MONOCYTES % (AUTO) 7.9 % (3-13); RED BLOOD COUNT 4.22 10^6/uL (3.72-5.28); RED CELL DISTRIBUTION WIDTH 14.8 % (11.5-14.0); SEGMENTED NEUTROPHILS % (AUTO) 61.2 % (42-78); WHITE BLOOD COUNT 9.2 10^3/uL (4.0-10.5)
[2017-02-02 21:50] LABS: ALANINE AMINOTRANSFERASE 32 U/L (9-52); ALBUMIN 3.9 g/dL (3.5-5.0); ALKALINE PHOSPHATASE 82 U/L (38-126); ANION GAP 8 (5-19); ASPARTATE AMINO TRANSFERASE 43 U/L (14-36); BILIRUBIN,DIRECT 0.3 mg/dL (0.0-0.4); BILIRUBIN,TOTAL 0.6 mg/dL (0.2-1.3); BLOOD UREA NITROGEN 15 mg/dL (7-20); CALCIUM 9.3 mg/dL (8.4-10.2); CARBON DIOXIDE 29 mmol/L (22-30); CHLORIDE 106 mmol/L (98-107); CREATININE RESULT 1.11 mg/dL (0.52-1.25); GLUCOSE 112 mg/dL (75-110); POTASSIUM 4.1 mmol/L (3.6-5.0); TOTAL PROTEIN 6.9 g/dL (6.3-8.2)
--- NOTE | 2017-02-02 23:40 | RADIOLOGY REPORT (SQ) ---
EXAM DESCRIPTION: CT ABD/PELVIS ORAL ONLY COMPLETED DATE/TIME: 02/02/2017 11:18 pm REASON FOR STUDY: post op pain, lower abdominal pain COMPARISON: March 2015 TECHNIQUE: CT scan of the abdomen and pelvis performed with oral contrast and no intravenous contras t. Images reviewed with lung, soft tissue, and bone windows. Reconstructed coronal and sagittal MPR i mages reviewed. All images stored on PACS. All CT scanners at this facility use dose modulation, iterative reconstruction, and/or weight based d osing when appropriate to reduce radiation dose to as low as reasonably achievable (ALARA). [facility]: Dose Right [facility]: CareDose [facility]: Dose Right [facility]: Teradose 4D [facility]: [employer] RADIATION DOSE: Up-to-date CT equipment and radiation dose reduction techniques were employed. CTDIv ol: 19.1 mGy. DLP: 1112 mGy-cm. mGy. LIMITATIONS: None. FINDINGS: LOWER CHEST: No significant findings. No nodules or infiltrates. NON-CONTRASTED LIVER, SPLEEN, ADRENALS: Evaluation limited by lack of IV contrast. No identified sign ificant masses. PANCREAS: No masses. No peripancreatic inflammatory changes. GALLBLADDER: Status post cholecystectomy. Increased density is identified at surgical site most like ly representing a small hematoma or other postsurgical changes. Drainage catheter and surgical clips are identified at the level of the mayi hepatis. RIGHT KIDNEY AND URETER: No suspicious masses. Assessment limited by lack of IV contrast. 4.8 cm brianda al cyst is identified. No significant calcifications. No hydronephrosis or hydroureter. LEFT KIDNEY AND URETER: No suspicious masses. Assessment limited by lack of IV contrast. 5.4 cm iván l cyst is identified. No significant calcifications. No hydronephrosis or hydroureter. AORTA AND RETROPERITONEUM: No aneurysm. No retroperitoneal masses or adenopathy. BOWEL AND PERITONEAL CAVITY: No obvious masses or inflammatory changes. No free fluid. APPENDIX: Normal. PELVIS, BLADDER, AND ABDOMINAL WALL: No abnormal pelvic masses. No abdominal wall hernias. Bladder un remarkable. BONES: No significant findings. OTHER: No other significant finding. IMPRESSION: Status post cholecystectomy. Surgical clips and a surgical drain are identified in posi tion. Increased density is identified at the surgical site most likely representing a small hematoma or other postsurgical changes. Other findings as noted above TECHNICAL DOCUMENTATION: JOB ID: [id number] Quality ID # [id number]: Final reports with documentation of one or more dose reduction techniques (e.g., Au tomated exposure control, adjustment of the mA and/or kV according to patient size, use of iterative reconstruction technique) 2010 [employer]- All Rights Reserved
[2017-02-03 00:22] VITALS: BP 117/75
== END 2017-02-03 00:35 | disposition home or self-care (01) ==
LOC: ER 19:20
DX: G89.18 Other acute postprocedural pain (principal); R10.84 Generalized abdominal pain; Z90.49 Acquired absence of other specified parts of digestive tract; I25.10 Atherosclerotic heart disease of native coronary artery without angina pectoris; E11.9 Type 2 diabetes mellitus without complications; G89.29 Other chronic pain; M54.9 Dorsalgia, unspecified; I50.9 Heart failure, unspecified; I11.0 Hypertensive heart disease with heart failure; Z88.2 Allergy status to sulfonamides; Z88.6 Allergy status to analgesic agent; Z91.013 Allergy to seafood; Z79.891 Long term (current) use of opiate analgesic; Z87.442 Personal history of urinary calculi; Z90.710 Acquired absence of both cervix and uterus
CPT/HCPCS: 99284; 96374; 96375; 36415; 85025; 80053; 74176; J2270; J2405

== ENCOUNTER 2017-02-06 00:36 | Emergency (ER) | payer MEDICARE, MEDICAID ==
[2017-02-06 01:38] LABS: APPEARANCE,URINE SLIGHTLY-CLOUDY; BILIRUBIN,URINE NEGATIVE (NEGATIVE); GLUCOSE, URINE NEGATIVE (NEGATIVE); KETONES,URINE NEGATIVE (NEGATIVE); LEUKOCYTE ESTERASE,URINE TRACE (NEGATIVE); NITRITE,URINE NEGATIVE (NEGATIVE); PROTEIN,URINE 100 mg/dL (NEGATIVE); URINE SPECIFIC GRAVITY 1.017; UROBILINOGEN,URINE NEGATIVE mg/dL (<2.0)
[2017-02-06] MEDS ORDERED: KETOROLAC TROMETHAMINE 60 MG/2 ML SDV IM ONE (01:41)
--- NOTE | 2017-02-06 01:43 | ER Document Report ---
ED General - General Chief Complaint: Urinary Problem Stated Complaint: FLANK PAIN Time Seen by Provider: 02/06/17 01:06 Mode of Arrival: Ambulatory Information source: Patient Notes: 51 yr old female presents with complaints of right flank pain. pt denies any fevers or chills, nausea or vomiting . pt notes she had pressure with urination , denies any hx of kidney stones. pt denies any trauma, denies any cauda equina concerns TRAVEL OUTSIDE OF THE [place] IN LAST 30 DAYS: No - HPI Onset: Yesterday Onset/Duration: Persistent Quality of pain: Achy Severity: Mild Pain Level: 1 Associated symptoms: Body/muscle aches Exacerbated by: Other - urination Relieved by: Denies Similar symptoms previously: No Recently seen / treated by doctor: No - Related Data Allergies/Adverse Reactions: acetaminophen [Acetaminophen] Allergy (Severe, Verified 02/06/17 00:52) itching Shellfish * [Shellfish] Allergy (Severe, Verified 02/06/17 00:52) itch, rash Sulfa (Sulfonamide Antibiotics) Allergy (Severe, Verified 02/06/17 00:52) Hives Iodinated Contrast- Oral and IV Dye [IV Dye, Iodine Containing] Allergy ( Intermediate, Verified 02/06/17 00:52) rash, itching iodine [Iodine] Allergy (Intermediate, Verified 02/06/17 00:52) itch, rash Past Medical History - Social History Smoking Status: Never Smoker Cigarette use (# per day): No Chew tobacco use (# tins/day): No Smoking Education Provided: No Frequency of alcohol use: Occasional Drug Abuse: None Family History: Arthritis, CAD, DM, Hyperlipidemia, Hypertension, Malignancy, Thyroid Disfunction, Other - kidney disease - Past Medical History Cardiac Medical History: Reports: Hx Congestive Heart Failure, Hx Coronary Artery Disease, Hx Hypercholesterolemia, Hx Hypertension Denies: Hx Heart Attack Pulmonary Medical History: Reports: Hx Asthma Denies: Hx Bronchitis, Hx COPD, Hx Pneumonia, Hx Tuberculosis Neurological Medical History: Reports: Hx Migraine. Denies: Hx Cerebrovascular Accident, Hx Seizures Endocrine Medical History: Reports: Hx Diabetes Mellitus Type 2 Renal/ Medical History: Reports: Hx Kidney Stones. Denies: Hx Peritoneal Dialysis Musculoskeltal Medical History: Reports Hx Arthritis, Reports Hx Musculoskeletal Deformity Psychiatric Medical History: Reports: Hx Depression Past Surgical History: Reports: Hx Adenoidectomy, Hx Cardiac Catheterization, Hx Coronary Stent - x4 in 2009 according to the patient, Hx Hysterectomy, Hx Tonsillectomy, Hx Tubal Ligation. Denies: Hx Pacemaker - Immunizations Immunizations up to date: Yes Hx Diphtheria, Pertussis, Tetanus Vaccination: Yes Review of Systems - Review of Systems Notes: REVIEW OF SYSTEMS: CONSTITUTIONAL : Denies fever, chills, or sweats. Denies recent illness. EENT: Denies eye, ear, throat, or mouth pain or symptoms. Denies nasal or sinus congestion or discharge. Denies throat, tongue, or mouth swelling or difficulty swallowing. CARDIOVASCULAR: Denies chest pain. Denies palpitations or racing or irregular heart beat. Denies ankle edema. RESPIRATORY: Denies cough, cold, or chest congestion. Denies shortness of breath, difficulty breathing, or wheezing. GASTROINTESTINAL: Denies abdominal pain or distention. Denies nausea, vomiting , or diarrhea. Denies blood in vomitus, stools, or per rectum. Denies black, tarry stools. Denies constipation. GENITOURINARY: Denies difficulty urinating, painful urination, burning, frequency, blood in urine, or discharge. FEMALE GENITOURINARY: Denies vaginal bleeding, heavy or abnormal periods, irregular periods. Denies vaginal discharge or odor. MUSCULOSKELETAL: flank pain on the right SKIN: Denies rash, lesions or sores. HEMATOLOGIC : Denies easy bruising or bleeding. LYMPHATIC: Denies swollen, enlarged glands. NEUROLOGICAL: Denies confusion or altered mental status. Denies passing out or loss of consciousness. Denies dizziness or lightheadedness. Denies headache. Denies weakness or paralysis or loss of use of either side. Denies problems with gait or speech. Denies sensory loss, numbness, or tingling. Denies seizures. PSYCHIATRIC: Denies anxiety or stress. Denies depression, suicidal ideation, or homicidal ideation. ALL OTHER SYSTEMS REVIEWED AND NEGATIVE. PHYSICAL EXAMINATION: GENERAL: Well-appearing, well-nourished and in no acute distress. HEAD: Atraumatic, normocephalic. EYES: Pupils equal round and reactive to light, extraocular movements intact, conjunctiva are normal. ENT: Nares patent, oropharynx clear without exudates. Moist mucous membranes. NECK: Normal range of motion, supple without lymphadenopathy LUNGS: Breath sounds clear to auscultation bilaterally and equal. No wheezes rales or rhonchi. HEART: Regular rate and rhythm without murmurs ABDOMEN: Soft, nontender, nondistended abdomen. No guarding, no rebound. No masses appreciated. mild right cva tenderness Female : deferred Musculoskeletal: Normal range of motion, no pitting or edema. No cyanosis. NEUROLOGICAL: Cranial nerves grossly intact. Normal speech, normal gait. Normal sensory, motor exams PSYCH: Normal mood, normal affect. SKIN: Warm, Dry, normal turgor, no rashes or lesions noted. Dictation was performed using [employer] voice recognition software Physical Exam - Vital signs Vitals: Temp Pulse Resp BP Pulse Ox 98.4 F 83 18 137/102 H 96 02/06/17 00:53 02/06/17 00:53 02/06/17 00:53 02/06/17 00:53 02/06/17 00:53 Course - Re-evaluation Re-evalutation: 02/06/17 03:51 Patient's urinalysis noted no sign of infection, she otherwise is in no distress. Patient will be discharged home with anti-inflammatories and close return precautions After performing a Medical Screening Examination, I estimate there is LOW risk for EXPANDING OR RUPTURED ABDOMINAL AORTIC ANEURYSM, CAUDA EQUINA SYNDROME, EPIDURAL MASS LESION, or HERNIATED DISK CAUSING SEVERE SPINAL STENOSIS, thus I consider the discharge disposition reasonable. I have reevaluated this patient multiple times and no significant life threatening changes are noted. The patient and I have discussed the diagnosis and risks, and we agree with discharging home and close follow-up. We also discussed returning to the Emergency Department immediately if new or worsening symptoms occur with the understanding that symptoms and presentations can change. We have discussed the symptoms which are most concerning (e.g., saddle anesthesia, urinary or bowel incontinence or retention, changing or worsening pain) that necessitate immediate return. - Vital Signs Vital signs: Temp Pulse Resp BP Pulse Ox 98.4 F 84 17 137/96 H 99 02/06/17 00:53 02/06/17 02:10 02/06/17 02:10 02/06/17 02:10 02/06/17 02:10 - Laboratory Laboratory results interpreted by me: 02/06/17 01:20 Urine Protein 100 H Ur Leukocyte Esterase TRACE H Discharge - Discharge Clinical Impression: Flank pain, Dysuria Condition: Stable Disposition: HOME, SELF-CARE Instructions: Low Back Pain ([facility]) Additional Instructions: Follow up with your physician tomorrow for further care or return to the ED IMMEDIATELY if symptoms worsen or new concerns occur. If you cannot afford to follow up with your primary care physician a list of low cost clinics have been provided at the end of your discharge papers as well. Prescriptions: Ketorolac Tromethamine [Toradol 10 mg Tablet] 10 mg PO Q8HP PRN #30 tablet PRN Reason:
[2017-02-06 02:11] VITALS: BP 137/96
== END 2017-02-06 02:09 | disposition home or self-care (01) ==
LOC: ER 00:36
DX: R10.9 Unspecified abdominal pain (principal); R30.0 Dysuria
CPT/HCPCS: 99283; 96372; 81025; 81001; J1885

== ENCOUNTER 2017-02-24 16:23 | Emergency (ER) | payer MEDICARE, MEDICAID ==
--- NOTE | 2017-02-24 19:42 | ER Document Report ---
ED Extremity Problem, Upper - General Chief Complaint: Burn R forearm Stated Complaint: RIGHT ARM INJURY Time Seen by Provider: 02/24/17 18:16 Mode of Arrival: Ambulatory Information source: Patient Notes: 51 yo female presents to ed for burn to right forearm from touching the oven while cooking Friday. States she is a diabetic and was concerned. No redness, drainage or signs of infection at this time. Well granulated. TRAVEL OUTSIDE OF THE [place] IN LAST 30 DAYS: No - HPI Patient complains to provider of: Pain, Right, Forearm Onset: Last week Recent injury: Yes Where: Home, Indoors Quality of pain: Burning Severity of pain: Moderate Pain Level: 4 Context: Burn - from touching the oven rack Associated symptoms: None Exacerbated by: Movement Relieved by: Nothing Similar symptoms previously: No Recently seen / treated by doctor: Yes - Related Data Allergies/Adverse Reactions: acetaminophen [Acetaminophen] Allergy (Severe, Verified 02/06/17 00:52) itching Shellfish * [Shellfish] Allergy (Severe, Verified 02/06/17 00:52) itch, rash Sulfa (Sulfonamide Antibiotics) Allergy (Severe, Verified 02/06/17 00:52) Hives Iodinated Contrast- Oral and IV Dye [IV Dye, Iodine Containing] Allergy ( Intermediate, Verified 02/06/17 00:52) rash, itching iodine [Iodine] Allergy (Intermediate, Verified 02/06/17 00:52) itch, rash Past Medical History - General Information source: Patient - Social History Smoking Status: Never Smoker Cigarette use (# per day): No Chew tobacco use (# tins/day): No Smoking Education Provided: No Frequency of alcohol use: Occasional Drug Abuse: None Lives with: Family Family History: Arthritis, CAD, DM, Hyperlipidemia, Hypertension, Malignancy, Thyroid Disfunction, Other - kidney disease - Past Medical History Cardiac Medical History: Reports: Hx Congestive Heart Failure, Hx Coronary Artery Disease, Hx Hypercholesterolemia, Hx Hypertension Pulmonary Medical History: Reports: Hx Asthma Neurological Medical History: Reports: Hx Migraine Endocrine Medical History: Reports: Hx Diabetes Mellitus Type 2 Renal/ Medical History: Reports: Hx Kidney Stones Malignancy Medical History: Reports: None GI Medical History: Reports: None Musculoskeltal Medical History: Reports Hx Arthritis, Reports Hx Musculoskeletal Deformity, Reports Hx Musculoskeletal Trauma Skin Medical History: Reports None Psychiatric Medical History: Reports: Hx Depression Traumatic Medical History: Reports: None Infectious Medical History: Reports: None Past Surgical History: Reports: Hx Adenoidectomy, Hx Cardiac Catheterization, Hx Cholecystectomy, Hx Coronary Stent - x4 in 2009 according to the patient, Hx Hysterectomy, Hx Tonsillectomy, Hx Tubal Ligation - Immunizations Immunizations up to date: Yes Hx Diphtheria, Pertussis, Tetanus Vaccination: Yes Review of Systems - Review of Systems Constitutional: No symptoms reported EENT: No symptoms reported Cardiovascular: No symptoms reported Respiratory: No symptoms reported Gastrointestinal: No symptoms reported Genitourinary: No symptoms reported Female Genitourinary: No symptoms reported Musculoskeletal: No symptoms reported Skin: Other - burn to right forearm last week on friday from touching an oven rack while cooking. Hematologic/Lymphatic: No symptoms reported Neurological/Psychological: No symptoms reported Physical Exam - Vital signs Vitals: Temp Pulse Resp BP Pulse Ox 98.7 F 77 15 162/111 H 98 02/24/17 16:53 02/24/17 16:53 02/24/17 16:53 02/24/17 16:53 02/24/17 16:53 Interpretation: Normal - General General appearance: Appears well, Alert - HEENT Head: Normocephalic, Atraumatic Eyes: Normal Pupils: PERRL - Respiratory Respiratory status: No respiratory distress Chest status: Nontender Breath sounds: Normal Chest palpation: Normal - Cardiovascular Rhythm: Regular Heart sounds: Normal auscultation Murmur: No - Abdominal Inspection: Normal Distension: No distension Bowel sounds: Normal Tenderness: Nontender Organomegaly: No organomegaly - Back Back: Normal, Nontender - Extremities General upper extremity: Normal inspection, Nontender, Normal color, Normal ROM , Normal temperature General lower extremity: Normal inspection, Nontender, Normal color, Normal ROM , Normal temperature, Normal weight bearing. No: Roe's sign - Neurological Neuro grossly intact: Yes Cognition: Normal Orientation: AAOx4 [place] Coma Scale Eye Opening: Spontaneous [place] Coma Scale Verbal: Oriented Lazarus Coma Scale Motor: Obeys Commands Lazarus Coma Scale Total: 15 Speech: Normal Motor strength normal: LUE, RUE, LLE, RLE Sensory: Normal - Psychological Associated symptoms: Normal affect, Normal mood - Skin Skin Temperature: Warm Skin Moisture: Dry Skin Color: Normal Location of irregularity: Extremities - small 3 cm x 1 cm burn to left forearm well granulated with some areas still scabbed over. no signs or symptoms of infection. Course - Vital Signs Vital signs: Temp Pulse Resp BP Pulse Ox 98.7 F 80 16 172/128 H 97 02/24/17 20:00 02/24/17 20:00 02/24/17 20:00 02/24/17 20:00 02/24/17 20:00 Discharge - Discharge Clinical Impression: small burn to left forearm Condition: Stable Disposition: HOME, SELF-CARE Additional Instructions: Burn is almost a week old. There is no acute treatment needed for this time. Cleaned well with soap and water and apply bacitracin and cover with a Telfa dressing as needed. If you want to leave it open that is okay also. Be sure to clean it well with soap and water several times a day and return to the emergency room for any fever or signs or symptoms of infection to include redness drainage or swelling. There are none of these symptoms at this time. Your blood sugar was in the 90s which is well within normal at this time. Your blood pressure is too high you need to follow-up with Dr. Rodrigez by telephone tomorrow to schedule an appointment to see if he needs to adjust your medications. FOLLOW-UP CARE: If you have been referred to a physician for follow-up care, call the physician s office for an appointment as you were instructed or within the next two days. If you experience worsening or a significant change in your symptoms, notify the physician immediately or return to the Emergency Department at any time for re-evaluation. Forms: Elevated Blood Pressure Referrals: JONATHON RODRIGEZ MD [Primary Care Provider] - Follow up tomorrow
[2017-02-24 20:03] VITALS: BP 172/128
== END 2017-02-24 20:03 | disposition home or self-care (01) ==
LOC: ER 16:23
DX: T22.011A Burn of unspecified degree of right forearm, initial encounter (principal); X15.0XXA Contact with hot stove (kitchen), initial encounter
CPT/HCPCS: 82962; 99283

== ENCOUNTER 2017-02-28 07:08 | Emergency (ER) | payer MEDICARE, MEDICAID ==
[2017-02-28 09:03] LABS: ABSOLUTE BASOPHILS # (AUTO) 0.1 10^3/uL (0.0-0.2); ABSOLUTE EOSINOPHILS # (AUTO) 0.2 10^3/uL (0.0-0.6); ABSOLUTE LYMPHOCYTES (AUTO) 2.6 10^3/uL (0.5-4.7); ABSOLUTE MONOCYTES (AUTO) 0.6 10^3/uL (0.1-1.4); ABSOLUTE NEUT (AUTO) 6.1 10^3/uL (1.7-8.2); BASOPHILS % (AUTO) 0.8 % (0-2); EOSINOPHILS % (AUTO) 2.3 % (0-6); HEMATOCRIT 38.2 % (36.0-47.0); HEMOGLOBIN 12.7 g/dL (12.0-15.5); HGB HCT DIFFERENCE -0.1; LYMPHOCYTES % (AUTO) 27.3 % (13-45); MEAN CORPUSCULAR HEMOGLOBIN 29.6 pg (27.0-33.4); MEAN CORPUSCULAR HGB CONC 33.3 g/dL (32.0-36.0); MEAN CORPUSCULAR VOLUME 89 fl (80-97); MONOCYTES % (AUTO) 5.9 % (3-13); RED CELL DISTRIBUTION WIDTH 14.9 % (11.5-14.0); SEGMENTED NEUTROPHILS % (AUTO) 63.7 % (42-78); WHITE BLOOD COUNT 9.5 10^3/uL (4.0-10.5)
--- NOTE | 2017-02-28 10:06 | ER Document Report ---
ED GI/ - General Chief Complaint: Vaginal Bleeding Stated Complaint: VAGINAL BLEEDING Time Seen by Provider: 02/28/17 07:51 Mode of Arrival: Ambulatory Information source: Patient Notes: Patient presents complaining of vaginal bleeding that she noticed today. Patient states that she had a similar episode of vaginal bleeding last month as well. Patient does complain of some dysuria today. Patient is not certain if the blood is coming from her vagina or in her urine. Patient does report some lower pelvic pain. Patient denies any fever, nausea, vomiting, or diarrhea. Patient does report a previous history of partial hysterectomy TRAVEL OUTSIDE OF THE [place] IN LAST 30 DAYS: No - HPI Patient complains to provider of: Pelvic pain, Vaginal bleeding. No: Vaginal pain Onset: This morning Timing/Duration: Gradual Quality of pain: Pressure Pain Level: 2 Location: Pelvis Vaginal bleeding (Compared to normal period): [employer] Sexual history: Active Associated symptoms: Dysuria. denies: Fever, Urinary hesitancy, Urinary frequency, Urinary retention, Urinary urgency, Vaginal discharge, Vomiting Exacerbated by: Denies Relieved by: Denies Similar symptoms previously: No Recently seen / treated by doctor: No - Related Data Allergies/Adverse Reactions: acetaminophen [Acetaminophen] Allergy (Severe, Verified 02/28/17 07:33) itching Shellfish * [Shellfish] Allergy (Severe, Verified 02/28/17 07:33) itch, rash Sulfa (Sulfonamide Antibiotics) Allergy (Severe, Verified 02/28/17 07:33) Hives Iodinated Contrast- Oral and IV Dye [IV Dye, Iodine Containing] Allergy ( Intermediate, Verified 02/28/17 07:33) rash, itching iodine [Iodine] Allergy (Intermediate, Verified 02/28/17 07:33) itch, rash Past Medical History - General Information source: Patient Last Menstrual Period: 2009 - Social History Smoking Status: Never Smoker Chew tobacco use (# tins/day): No Frequency of alcohol use: Rare Drug Abuse: None Occupation: none Family History: Arthritis, CAD, DM, Hyperlipidemia, Hypertension, Malignancy, Thyroid Disfunction, Other - kidney disease Patient has suicidal ideation: No Patient has homicidal ideation: No - Past Medical History Cardiac Medical History: Reports: Hx Congestive Heart Failure, Hx Coronary Artery Disease, Hx Hypercholesterolemia, Hx Hypertension Denies: Hx Heart Attack Pulmonary Medical History: Reports: Hx Asthma Denies: Hx Bronchitis, Hx COPD, Hx Pneumonia, Hx Tuberculosis Neurological Medical History: Reports: Hx Migraine. Denies: Hx Cerebrovascular Accident, Hx Seizures Endocrine Medical History: Reports: Hx Diabetes Mellitus Type 2 Renal/ Medical History: Reports: Hx Kidney Stones. Denies: Hx Peritoneal Dialysis Musculoskeltal Medical History: Reports Hx Arthritis, Reports Hx Musculoskeletal Deformity, Reports Hx Musculoskeletal Trauma Psychiatric Medical History: Reports: Hx Depression Past Surgical History: Reports: Hx Adenoidectomy, Hx Cardiac Catheterization, Hx Cholecystectomy, Hx Coronary Stent - x4 in 2009 according to the patient, Hx Hysterectomy, Hx Tonsillectomy, Hx Tubal Ligation. Denies: Hx Pacemaker - Immunizations Immunizations up to date: Yes Hx Diphtheria, Pertussis, Tetanus Vaccination: Yes Review of Systems - Review of Systems Constitutional: No symptoms reported. denies: Fever, Recent illness EENT: No symptoms reported Cardiovascular: No symptoms reported. denies: Chest pain, Palpitations Respiratory: No symptoms reported. denies: Cough, Short of breath Gastrointestinal: Abdominal pain. denies: Nausea, Vomiting Genitourinary: Dysuria. denies: Flank pain Female Genitourinary: Vaginal bleeding. denies: Vaginal discharge Musculoskeletal: No symptoms reported. denies: Back pain Skin: No symptoms reported Hematologic/Lymphatic: No symptoms reported. denies: Easy bleeding, Easy bruising Neurological/Psychological: No symptoms reported Physical Exam - Vital signs Vitals: Temp Pulse Resp BP Pulse Ox 98.4 F 88 16 149/110 H 98 02/28/17 07:32 02/28/17 07:32 02/28/17 07:32 02/28/17 07:32 02/28/17 07:32 - General General appearance: Appears well, Alert In distress: None - HEENT Head: Normocephalic, Atraumatic Eyes: Normal Nasal: Normal Mouth/Lips: Normal Mucous membranes: Normal Neck: Normal, Supple. No: Lymphadenopathy - Respiratory Respiratory status: No respiratory distress Chest status: Nontender Breath sounds: Normal. No: Rales, Rhonchi, Stridor, Wheezing Chest palpation: Normal - Cardiovascular Rhythm: Regular Heart sounds: S1 appreciated, S2 appreciated Murmur: No - Abdominal Inspection: Morbidly Obese Distension: No distension Bowel sounds: Normal Tenderness: Nontender - Genitourinary External exam: Normal Speculum exam: Other - post hysterectomy changes Vaginal bleeding: Mild Bimanuel exam: Normal Notes: RN Pamela as standby - Back Back: Normal, Nontender. No: CVA tenderness - Extremities General upper extremity: Normal inspection, Normal ROM General lower extremity: Normal inspection, Normal ROM - Neurological Neuro grossly intact: Yes Cognition: Normal Lazarus Coma Scale Eye Opening: Spontaneous Lazarus Coma Scale Verbal: Oriented Lazarus Coma Scale Motor: Obeys Commands Lazarus Coma Scale Total: 15 - Psychological Associated symptoms: Normal affect, Normal mood - Skin Skin Temperature: Warm Skin Moisture: Dry Skin Color: Normal Course - Re-evaluation Re-evalutation: 02/28/17 12:12 Discussed with patient results of her laboratory studies. Patient denies any concern about any kind of sexually transmitted infection. Patient does have a previous history of renal insufficiency as well as hypokalemia. Patient does have a music artist that she sees a Dr. galicia and does take supplemental potassium tablets. Patient advised of blood noted on speculum examination and need for follow-up with element burner. Consulted with Dr. Kc regarding patient presentation, exam findings and diagnostic test results. Agrees with discharge plan and important follow-up with element burner for further evaluation of vaginal bleeding. Patient currently not anemic, vital signs stable. No excessive vaginal bleeding noted on examination. - Vital Signs Vital signs: Temp Pulse Resp BP Pulse Ox 98.4 F 69 16 141/109 H 99 02/28/17 13:23 02/28/17 13:23 02/28/17 13:23 02/28/17 13:23 02/28/17 13:23 - Laboratory Result Diagrams: 02/28/17 08:49 02/28/17 11:03 Laboratory results interpreted by me: 02/28/17 02/28/17 02/28/17 08:49 10:03 11:03 RDW 14.9 H Potassium 3.5 L BUN 22 H Creatinine 1.31 H Est GFR ( Amer) 52 L Est GFR (Non-Af Amer) 43 L Glucose 114 H ALT 58 H Urine Protein 30 H 02/28/17 12:12 Labs- Entire Visit 02/28/17 02/28/17 02/28/17 08:49 08:49 08:49 WBC 9.5 RBC 4.30 Hgb 12.7 Hct 38.2 MCV 89 MCH 29.6 MCHC 33.3 RDW 14.9 H Plt Count 273 Seg Neutrophils % 63.7 Lymphocytes % 27.3 Monocytes % 5.9 Eosinophils % 2.3 Basophils % 0.8 Absolute Neutrophils 6.1 Absolute Lymphocytes 2.6 Absolute Monocytes 0.6 Absolute Eosinophils 0.2 Absolute Basophils 0.1 PT Cancelled INR Cancelled APTT Cancelled Sodium Cancelled Potassium Cancelled Chloride Cancelled Carbon Dioxide Cancelled Anion Gap Cancelled BUN Cancelled Creatinine Cancelled Est GFR ( Amer) Cancelled Est GFR (Non-Af Amer) Cancelled Glucose Cancelled Calcium Cancelled Total Bilirubin Cancelled Direct Bilirubin Cancelled Indirect Bilirubin Cancelled Neonat Total Bilirubin Cancelled AST Cancelled ALT Cancelled Alkaline Phosphatase Cancelled Total Protein Cancelled Albumin Cancelled Urine Color Urine Appearance Urine pH Ur Specific [place] Urine Protein Urine Glucose (UA) Urine Ketones Urine Blood Urine Nitrite Urine Bilirubin Urine Urobilinogen Ur Leukocyte Esterase Urine WBC (Auto) Urine RBC (Auto) U Hyaline Cast (Auto) Squamous Epi Cells Auto Urine Mucus (Auto) Urine Ascorbic Acid Trichomonas (Wet Prep) Vaginal WBC Vaginal RBC Vaginal Yeast 02/28/17 02/28/17 02/28/17 10:03 10:03 11:03 WBC RBC Hgb Hct MCV MCH MCHC RDW Plt Count Seg Neutrophils % Lymphocytes % Monocytes % Eosinophils % Basophils % Absolute Neutrophils Absolute Lymphocytes Absolute Monocytes Absolute Eosinophils Absolute Basophils PT 11.6 INR 0.79 APTT 29.7 Sodium Potassium Chloride Carbon Dioxide Anion Gap BUN Creatinine Est GFR ( Amer) Est GFR (Non-Af Amer) Glucose Calcium Total Bilirubin Direct Bilirubin Indirect Bilirubin Neonat Total Bilirubin AST ALT Alkaline Phosphatase Total Protein Albumin Urine Color STRAW Urine Appearance CLEAR Urine pH 6.0 Ur Specific [place] 1.006 Urine Protein 30 H Urine Glucose (UA) NEGATIVE Urine Ketones NEGATIVE Urine Blood NEGATIVE Urine Nitrite NEGATIVE Urine Bilirubin NEGATIVE Urine Urobilinogen NEGATIVE Ur Leukocyte Esterase NEGATIVE Urine WBC (Auto) 1 Urine RBC (Auto) 0 U Hyaline Cast (Auto) 1 Squamous Epi Cells Auto <1 Urine Mucus (Auto) RARE Urine Ascorbic Acid NEGATIVE Trichomonas (Wet Prep) NO TRICHOMONAS SEEN Vaginal WBC 2+ WBCS SEEN Vaginal RBC 3+ RBCS SEEN Vaginal Yeast NO YEAST SEEN 02/28/17 11:03 WBC RBC Hgb Hct MCV MCH MCHC RDW Plt Count Seg Neutrophils % Lymphocytes % Monocytes % Eosinophils % Basophils % Absolute Neutrophils Absolute Lymphocytes Absolute Monocytes Absolute Eosinophils Absolute Basophils PT INR APTT Sodium 142.2 Potassium 3.5 L Chloride 104 Carbon Dioxide 29 Anion Gap 9 BUN 22 H Creatinine 1.31 H Est GFR ( Amer) 52 L Est GFR (Non-Af Amer) 43 L Glucose 114 H Calcium 9.6 Total Bilirubin 0.6 Direct Bilirubin 0.3 Indirect Bilirubin Not Reportable Neonat Total Bilirubin Not Reportable AST 24 ALT 58 H Alkaline Phosphatase 124 Total Protein 6.9 Albumin 4.0 Urine Color Urine Appearance Urine pH Ur Specific [place] Urine Protein Urine Glucose (UA) Urine Ketones Urine Blood Urine Nitrite Urine Bilirubin Urine Urobilinogen Ur Leukocyte Esterase Urine WBC (Auto) Urine RBC (Auto) U Hyaline Cast (Auto) Squamous Epi Cells Auto Urine Mucus (Auto) Urine Ascorbic Acid Trichomonas (Wet Prep) Vaginal WBC Vaginal RBC Vaginal Yeast Discharge - Discharge Clinical Impression: Hypokalemia, Vaginal bleeding, Renal insufficiency Hypertension Qualifiers: Hypertension type: unspecified Qualified Code(s): I10 - Essential (primary) hypertension Condition: Stable Disposition: HOME, SELF-CARE Instructions: High Blood Pressure ([facility]), Hypokalemia ([facility]) Additional Instructions: Return immediately for any new or worsening symptoms Followup with your primary care provider, call tomorrow to make a followup appointment Follow-up with your music artist for recheck of abnormal renal functioning test. Your examination demonstrated abnormal vaginal bleeding. It is important that you follow-up with a element burner who can further evaluate this abnormal finding. You can call today for a follow-up appointment Cultures are pending, we will call if you need any different treatment Forms: Elevated Blood Pressure Referrals: JONATHON RODRIGEZ MD [Primary Care Provider] - Follow up as needed [facility] [Provider Group] - Follow up tomorrow
[2017-02-28 10:57] LABS: APPEARANCE,URINE CLEAR; BILIRUBIN,URINE NEGATIVE (NEGATIVE); GLUCOSE, URINE NEGATIVE (NEGATIVE); KETONES,URINE NEGATIVE (NEGATIVE); LEUKOCYTE ESTERASE,URINE NEGATIVE (NEGATIVE); NITRITE,URINE NEGATIVE (NEGATIVE); PROTEIN,URINE 30 mg/dL (NEGATIVE); URINE SPECIFIC GRAVITY 1.006; UROBILINOGEN,URINE NEGATIVE mg/dL (<2.0)
[2017-02-28 11:28] LABS: PARTIAL THROMBOPLASTIN TIME 29.7 SEC (23.5-35.8); PROTHROMBIN TIME 11.6 SEC (11.4-15.4)
[2017-02-28 11:41] LABS: ALANINE AMINOTRANSFERASE 58 U/L (9-52); ALKALINE PHOSPHATASE 124 U/L (38-126); ANION GAP 9 (5-19); ASPARTATE AMINO TRANSFERASE 24 U/L (14-36); BILIRUBIN,DIRECT 0.3 mg/dL (0.0-0.4); BILIRUBIN,TOTAL 0.6 mg/dL (0.2-1.3); BLOOD UREA NITROGEN 22 mg/dL (7-20); CALCIUM 9.6 mg/dL (8.4-10.2); CARBON DIOXIDE 29 mmol/L (22-30); CHLORIDE 104 mmol/L (98-107); CREATININE RESULT 1.31 mg/dL (0.52-1.25); GLUCOSE 114 mg/dL (75-110); POTASSIUM 3.5 mmol/L (3.6-5.0); SODIUM 142.2 mmol/L (137-145); TOTAL PROTEIN 6.9 g/dL (6.3-8.2)
[2017-02-28] MEDS ORDERED: POTASSIUM CHLORIDE 10 MEQ TABLET.SA PO ONE (11:57)
[2017-02-28 12:53] LABS: CHLAM PCR NOT DETECTED (NOT DETECT)
[2017-02-28 13:31] VITALS: BP 141/109
== END 2017-02-28 13:23 | disposition home or self-care (01) ==
LOC: ER 07:08
DX: E87.6 Hypokalemia (principal); N93.9 Abnormal uterine and vaginal bleeding, unspecified; N28.9 Disorder of kidney and ureter, unspecified; I10 Essential (primary) hypertension; R30.0 Dysuria; R10.2 Pelvic and perineal pain
CPT/HCPCS: 99284; 51701; 36415; 87086; 87210; 85025; 85610; 85730; 80053; 81001; 87491; 87591; A9270

== ENCOUNTER → 2017-03-25 | Outpatient (CLI) | payer MEDICARE, MEDICAID ==
[2017-03-25 13:25] LABS: ABSOLUTE EOSINOPHILS # (AUTO) 0.2 10^3/uL (0.0-0.6); ABSOLUTE MONOCYTES (AUTO) 0.4 10^3/uL (0.1-1.4); ABSOLUTE NEUT (AUTO) 5.4 10^3/uL (1.7-8.2); BASOPHILS % (AUTO) 0.4 % (0-2); HEMATOCRIT 39.9 % (36.0-47.0); HEMOGLOBIN 13.1 g/dL (12.0-15.5); HGB HCT DIFFERENCE -0.6; LYMPHOCYTES % (AUTO) 24.4 % (13-45); MEAN CORPUSCULAR HGB CONC 32.8 g/dL (32.0-36.0); MEAN CORPUSCULAR VOLUME 88 fl (80-97); MONOCYTES % (AUTO) 5.2 % (3-13); RED BLOOD COUNT 4.52 10^6/uL (3.72-5.28); RED CELL DISTRIBUTION WIDTH 15.1 % (11.5-14.0)
[2017-03-25 13:51] LABS: ALANINE AMINOTRANSFERASE 28 U/L (9-52); ALBUMIN 4.2 g/dL (3.5-5.0); ALKALINE PHOSPHATASE 108 U/L (38-126); ANION GAP 10 (5-19); ASPARTATE AMINO TRANSFERASE 22 U/L (14-36); BILIRUBIN,DIRECT 0.4 mg/dL (0.0-0.4); BILIRUBIN,TOTAL 0.8 mg/dL (0.2-1.3); BLOOD UREA NITROGEN 22 mg/dL (7-20); CALCIUM 10.1 mg/dL (8.4-10.2); CARBON DIOXIDE 28 mmol/L (22-30); CHLORIDE 104 mmol/L (98-107); CHOLESTEROL 187.92 mg/dL (0-200); CREATININE RESULT 1.15 mg/dL (0.52-1.25); Direct HDL 72 mg/dL (>40); GLUCOSE 109 mg/dL (75-110); POTASSIUM 3.8 mmol/L (3.6-5.0); SODIUM 142.4 mmol/L (137-145); TOTAL PROTEIN 6.9 g/dL (6.3-8.2); TRIGLYCERIDES 104 mg/dL (<150)
[2017-03-25 14:01] LABS: DIRECT LDL 94 mg/dL (<100)
[2017-03-26 12:38] LABS: CREATININE URINE 197.2 mg/dL (Not Estab.)
[2017-03-26 14:47] LABS: MICROALBUMIN URINE 1884.1 ug/mL (Not Estab.)
== END ==
LOC: OD 12:31
PROVIDERS: ATTEND Internal Medicine
DX: Z79.891 Long term (current) use of opiate analgesic (principal); Z13.220 Encounter for screening for lipoid disorders; Z13.1 Encounter for screening for diabetes mellitus; R73.01 Impaired fasting glucose; Z13.21 Encounter for screening for nutritional disorder; Z13.29 Encounter for screening for other suspected endocrine disorder; Z79.899 Other long term (current) drug therapy
CPT/HCPCS: 36415; 80053; 80061; 82043; 82306; 82570; 83036; 84443; 85025

== ENCOUNTER 2017-05-26 01:28 | Emergency (ER) | payer MEDICARE, MEDICAID ==
[2017-05-26] MEDS ORDERED: HYDROCHLOROTHIAZIDE 25 MG TABLET PO ONE (01:53)
[2017-05-26] MEDS ORDERED: DOXYCYCLINE HYCLATE 100 MG TABLET PO ONE (01:53)
--- NOTE | 2017-05-26 01:58 | ER Document Report ---
ED General - General Chief Complaint: Insect Bite Stated Complaint: POSSIBLE BUG BITE Time Seen by Provider: 05/26/17 01:45 Notes: Patient is a 51-year-old female presents with complaint of several small bug bites. She has one over her left upper back. She has 2 over the posterior aspect of her right thigh. She says she was sitting on the porch earlier and that is when she thinks they occurred. She says she has been scratching them some. She is afraid that 1 of them may be infected. She is a diabetic. She also has a history of hypertension and was hypertensive upon arrival. She said her blood pressures normally not that high. She has been taking her medications. She says does not have any symptoms so she with. She denies chest pain. Shortness of breath. She denies a headache. No weakness or numbness. No other complaints at this time. She takes clonidine, hydrochlorothiazide, and Tenormin for her high blood pressure. TRAVEL OUTSIDE OF THE [place] IN LAST 30 DAYS: No - Related Data Allergies/Adverse Reactions: acetaminophen [Acetaminophen] Allergy (Severe, Verified 05/26/17 01:48) itching Shellfish * [Shellfish] Allergy (Severe, Verified 05/26/17 01:48) itch, rash Sulfa (Sulfonamide Antibiotics) Allergy (Severe, Verified 05/26/17 01:48) Hives Iodinated Contrast- Oral and IV Dye [IV Dye, Iodine Containing] Allergy ( Intermediate, Verified 05/26/17 01:48) rash, itching iodine [Iodine] Allergy (Intermediate, Verified 05/26/17 01:48) itch, rash Past Medical History - Social History Smoking Status: Unknown if Ever Smoked Frequency of alcohol use: None Drug Abuse: None Family History: Arthritis, CAD, DM, Hyperlipidemia, Hypertension, Malignancy, Thyroid Disfunction, Other - kidney disease Patient has suicidal ideation: No Patient has homicidal ideation: No - Past Medical History Cardiac Medical History: Reports: Hx Congestive Heart Failure, Hx Coronary Artery Disease, Hx Hypercholesterolemia, Hx Hypertension Denies: Hx Heart Attack Pulmonary Medical History: Reports: Hx Asthma Denies: Hx Bronchitis, Hx COPD, Hx Pneumonia, Hx Tuberculosis Neurological Medical History: Reports: Hx Migraine. Denies: Hx Cerebrovascular Accident, Hx Seizures Endocrine Medical History: Reports: Hx Diabetes Mellitus Type 2 Renal/ Medical History: Reports: Hx Kidney Stones. Denies: Hx Peritoneal Dialysis Musculoskeltal Medical History: Reports Hx Arthritis, Reports Hx Musculoskeletal Deformity, Reports Hx Musculoskeletal Trauma Psychiatric Medical History: Reports: Hx Depression Past Surgical History: Reports: Hx Adenoidectomy, Hx Cardiac Catheterization, Hx Cholecystectomy, Hx Coronary Stent - x4 in 2009 according to the patient, Hx Hysterectomy, Hx Tonsillectomy, Hx Tubal Ligation. Denies: Hx Pacemaker - Immunizations Immunizations up to date: Yes Hx Diphtheria, Pertussis, Tetanus Vaccination: Yes Review of Systems - Review of Systems Notes: My Normal Review Basic REVIEW OF SYSTEMS: CONSTITUTIONAL : Denies fever, chills, or sweats. Denies recent illness. EENT: Denies eye, ear, throat, or mouth pain or symptoms. Denies nasal or sinus congestion. CARDIOVASCULAR: Denies chest pain. RESPIRATORY: Denies cough, cold, or chest congestion. Denies shortness of breath, difficulty breathing, or wheezing. GASTROINTESTINAL: Denies abdominal pain. Denies nausea, vomiting, or diarrhea. Denies constipation. Last BM: MUSCULOSKELETAL: Denies neck or back pain or joint pain or swelling. SKIN: Bug bites on left upper back and right posterior thigh. NEUROLOGICAL: Denies altered mental status or loss of consciousness. Denies headache. Denies weakness or paralysis or loss of use of either side. Denies problems with gait or speech. Denies sensory or motor loss. ALL OTHER SYSTEMS REVIEWED AND NEGATIVE. Physical Exam - Vital signs Vitals: Temp Pulse Resp BP Pulse Ox 98 F 65 16 205/140 H 95 05/26/17 01:45 05/26/17 01:45 05/26/17 01:45 05/26/17 01:45 05/26/17 01:45 - Notes Notes: General Appearance: Well nourished, alert, cooperative, no acute distress, no obvious discomfort. Well-appearing. Vitals: reviewed, See vital signs table. Eyes: PERRL, EOMI, Conjuctiva clear Extremities: good pulses in all extremities, no swelling or tenderness in the extremities, no edema. Skin: warm, dry, appropriate color, and has a single small red river just medial to her left scapula. This is near the area where her pulse strep discomfort back; however, it does look more consistent with a bug bite. There is no underlying fluctuance or induration. Patient has 3 red beasley over the right posterior thigh. There are blanchable. There is no significant induration. 1 of them does appear to have some spreading erythema consistent with a secondary cellulitis. This area is only approximately 4 cm in circumference. Neuro: speech clear, oriented x 3, normal affect, responds appropriately to questions. Renal nerves II through XII are intact. Patient moves all extremities without difficulty. Neurologically intact. Course - Re-evaluation Re-evalutation: 05/26/17 02:07 Patient has what appears to be bug bites that they think she may have developed a slight secondary infection from scratching the one on her posterior thigh. She is a diabetic. All areas I cautioned place her on antibiotic. Placed on doxycycline. She does have hypertension in triage. She has no symptoms so she with hypertension. I did give her an extra dose of hydrochlorothiazide. Her blood pressure is significantly elevated. Encouraged her return to ER immediately if she has severe headaches, vomiting, chest pain, spreading redness or swelling, fevers, or she feels unwell. Patient agrees with plan will be discharged home. Dictation of this chart was performed using voice recognition software; therefore, there may be some unintended grammatical errors. - Vital Signs Vital signs: Temp Pulse Resp BP Pulse Ox 98 F 65 16 205/140 H 95 05/26/17 01:45 05/26/17 01:45 05/26/17 01:45 05/26/17 01:45 05/26/17 01:45 Discharge - Discharge Clinical Impression: Cellulitis Qualifiers: Site of cellulitis: extremity Site of cellulitis of extremity: lower extremity Laterality: right Qualified Code(s): L03.115 - Cellulitis of right lower limb Bug bite Qualifiers: Encounter type: initial encounter Qualified Code(s): W57.XXXA - Bitten or stung by nonvenomous insect and other nonvenomous arthropods, initial encounter Hypertension Qualifiers: Hypertension type: unspecified Qualified Code(s): I10 - Essential (primary) hypertension Condition: Good Disposition: HOME, SELF-CARE Additional Instructions: Please take the antibiotics as prescribed. Your blood pressure was elevated in the ER today. Please continue to take your blood pressure medications as prescribed. please follow up with your doctor in 2-3 days for reevaluation. Please return to the ER immediately if you develop fevers, spreading redness, increasing swelling, headaches, chest pain, difficulty breathing, or weakness or numbness in your extremities. Prescriptions: Doxycycline Hyclate 100 mg PO BID #14 capsule
[2017-05-26] MEDS ORDERED: DIPHENHYDRAMINE HCL 25 MG CAPSULE PO ONE (02:08)
[2017-05-26 02:22] VITALS: BP 165/114
== END 2017-05-26 02:40 | disposition home or self-care (01) ==
LOC: ER 01:28
DX: L03.115 Cellulitis of right lower limb (principal); S20.462A Insect bite (nonvenomous) of left back wall of thorax, initial encounter; S70.361A Insect bite (nonvenomous), right thigh, initial encounter; I10 Essential (primary) hypertension; W57.XXXA Bitten or stung by nonvenomous insect and other nonvenomous arthropods, initial encounter
CPT/HCPCS: 99281; A9270 ×2

== ENCOUNTER 2017-06-05 21:59 | Emergency (ER) | payer MEDICARE, MEDICAID ==
[2017-06-05 22:37] VITALS: BP 199/121
[2017-06-05] MEDS ORDERED: ASPIRIN 81 MG TABLET, CHEWABLE PO ONE (22:37)
--- NOTE | 2017-06-05 23:29 | RADIOLOGY REPORT (SQ) ---
EXAM DESCRIPTION: CHEST SINGLE VIEW COMPLETED DATE/TIME: 06/05/2017 10:56 pm REASON FOR STUDY: chest pain COMPARISON: 07/10/2016. EXAM PARAMETERS: NUMBER OF VIEWS: One view. TECHNIQUE: Single frontal radiographic view of the chest acquired. RADIATION DOSE: NA LIMITATIONS: None. FINDINGS: LUNGS AND PLEURA: No opacities, masses or pneumothorax. No pleural effusion. Moderate alexsander g volume. MEDIASTINUM AND HILAR STRUCTURES: No masses. Contour normal. HEART AND VASCULAR STRUCTURES: Heart normal in size. Normal vasculature. BONES: No acute findings. HARDWARE: None in the chest. OTHER: Mild gaseous distention of the colon. IMPRESSION: No acute cardiopulmonary findings. TECHNICAL DOCUMENTATION: JOB ID: [id number] [employer]- All Rights Reserved
[2017-06-06] MEDS ORDERED: BENZONATATE 100 MG CAPSULE PO ONE (00:14)
[2017-06-06] MEDS ORDERED: IBUPROFEN 800 MG TABLET PO ONE (00:15)
--- NOTE | 2017-06-06 00:31 | ER Document Report ---
ED General - General Mode of Arrival: Ambulatory Information source: Patient TRAVEL OUTSIDE OF THE [place] IN LAST 30 DAYS: No <MALAIKA SHAIKH - Last Filed: 06/06/17 04:37> <CHELSY CLARK - Last Filed: 06/06/17 04:38> - General Chief Complaint: Chest Pressure Stated Complaint: CHEST DISCOMFORT, COUGHING Time Seen by Provider: 06/06/17 00:05 Notes: Patient is a 51 year old female with a history of CHF and HTN presents to the emergency department complaining of cough and chest pain. Patient states that she has been coughing for the last 24 hours. Patient states that she thinks the coughing was onset from the cold. Patients associated symptoms include nasal congestion, diarrhea, chills, decreased appetite and productive cough with green sputum. Patient states it hurts when she takes deep breaths. Patient denies any vomiting. Patient states she'd "rather be safe than sorry" due to having CHF. (MALAIKA SHAIKH) - Related Data Allergies/Adverse Reactions: acetaminophen [Acetaminophen] Allergy (Severe, Verified 06/05/17 22:31) itching Shellfish * [Shellfish] Allergy (Severe, Verified 06/05/17 22:31) itch, rash Sulfa (Sulfonamide Antibiotics) Allergy (Severe, Verified 06/05/17 22:31) Hives Iodinated Contrast- Oral and IV Dye [IV Dye, Iodine Containing] Allergy ( Intermediate, Verified 06/05/17 22:31) rash, itching iodine [Iodine] Allergy (Intermediate, Verified 06/05/17 22:31) itch, rash Past Medical History - General Information source: Patient - Social History Smoking Status: Never Smoker Cigarette use (# per day): No Chew tobacco use (# tins/day): No Smoking Education Provided: No Frequency of alcohol use: Occasional Drug Abuse: None Family History: Arthritis, CAD, DM, Hyperlipidemia, Hypertension, Malignancy, Thyroid Disfunction, Other - kidney disease - Past Medical History Cardiac Medical History: Reports: Hx Congestive Heart Failure, Hx Coronary Artery Disease, Hx Hypercholesterolemia, Hx Hypertension Denies: Hx Heart Attack Pulmonary Medical History: Reports: Hx Asthma Neurological Medical History: Reports: Hx Migraine Endocrine Medical History: Reports: Hx Diabetes Mellitus Type 2 Renal/ Medical History: Reports: Hx Kidney Stones Musculoskeltal Medical History: Reports Hx Arthritis, Reports Hx Musculoskeletal Deformity, Reports Hx Musculoskeletal Trauma Psychiatric Medical History: Reports: Hx Depression Past Surgical History: Reports: Hx Adenoidectomy, Hx Cardiac Catheterization, Hx Cholecystectomy, Hx Coronary Stent - x4 in 2009 according to the patient, Hx Hysterectomy, Hx Tonsillectomy, Hx Tubal Ligation - Immunizations Immunizations up to date: Yes Hx Diphtheria, Pertussis, Tetanus Vaccination: Yes <NEELMALAIKA MORENO - Last Filed: 06/06/17 04:37> Review of Systems - Review of Systems Constitutional: No symptoms reported EENT: See HPI, Nose congestion Cardiovascular: See HPI, Chest pain Respiratory: See HPI, Cough, Hurts to breathe, Sputum Gastrointestinal: See HPI, Diarrhea, Poor appetite. denies: Vomiting Genitourinary: No symptoms reported Female Genitourinary: No symptoms reported Musculoskeletal: No symptoms reported Skin: No symptoms reported Hematologic/Lymphatic: No symptoms reported Neurological/Psychological: No symptoms reported -: Yes All other systems reviewed and negative <MALAIKA SHAIKH - Last Filed: 06/06/17 04:37> Physical Exam <MALAIKA SHAIKH - Last Filed: 06/06/17 04:37> <CHELSY CLARK - Last Filed: 06/06/17 04:38> - Vital signs Vitals: Temp Pulse Resp BP Pulse Ox 99.2 F 68 22 H 199/121 H 98 06/05/17 22:32 06/05/17 22:32 06/05/17 22:32 06/05/17 22:32 06/05/17 22:32 - Notes Notes: GENERAL: Alert, interacts well. No acute distress. HEAD: Normocephalic, atraumatic. EYES: Pupils equal, round, and reactive to light. Extraocular movements intact. ENT: Oral mucosa moist, tongue midline. Nasal congestion. NECK: Full range of motion. Supple. Trachea midline. LUNGS: Clear to auscultation bilaterally, no wheezes, rales, or rhonchi. No respiratory distress. HEART: Regular rate and rhythm. No murmurs, gallops, or rubs. ABDOMEN: Soft, non-tender. Non-distended. Bowel sounds present in all 4 quadrants. EXTREMITIES: Moves all 4 extremities spontaneously. 1+ pitting edema, radial and dorsalis pedis pulses 2/4 bilaterally. No cyanosis. NEUROLOGICAL: Alert and oriented x3. Normal speech. PSYCH: Normal affect, normal mood. SKIN: Warm, dry, normal turgor. No rashes or lesions noted. (MALAIKA SHAIKH) Course - Laboratory Result Diagrams: 06/06/17 00:41 06/06/17 00:41 <MALAIKA SHAIKH - Last Filed: 06/06/17 04:37> - Laboratory Result Diagrams: 06/06/17 00:41 06/06/17 00:41 <CHELSY CLARK - Last Filed: 06/06/17 04:38> - Re-evaluation Re-evalutation: 06/06/17 03:56 CBC shows slight leukocytosis 10.7, CMP shows slight low potassium 3.3, this was repleted by mouth, BUN and creatinine are elevated compared to baseline however she has had renal failure like this in the past and is frequently be treated as an outpatient. Patient is followed by a produce manager as an outpatient, cardiac enzymes are negative 2 0.013 and 0.015, this is not a significant change to hours apart. Chest x-ray does not show any fluid or any acute process. Patient's cough feels much better now that she has had a Tessalon Perle and the soreness in her chest is gone away now that she is not coughing. EKG is nonischemic. (CHELSY CLARK) - Vital Signs Vital signs: Temp Pulse Resp BP Pulse Ox 99.2 F 68 22 H 199/121 H 98 06/05/17 22:32 06/05/17 22:32 06/05/17 22:32 06/05/17 22:32 06/05/17 22:32 - Laboratory Laboratory results interpreted by me: 06/06/17 06/06/17 00:41 00:41 WBC 10.7 H RDW 15.5 H Sodium 145.9 H Potassium 3.3 L Chloride 109 H BUN 27 H Creatinine 1.70 H Est GFR ( Amer) 38 L Est GFR (Non-Af Amer) 32 L Creatine Kinase 181 H Total Protein 6.0 L - EKG Interpretation by Me Additional EKG results interpreted by me: 06/06/17 03:56 EKG shows sinus rhythm at a rate of 68, left anterior hemiblock, no ST segment elevations or depressions, T-wave inversions noted in lead III, T-wave flattening in aVF, as well as V6, this is unchanged from prior EKG on 01/31/2017 per my interpretation. (CHELSY CLARK) Discharge <MALAIKA SHAIKH - Last Filed: 06/06/17 04:37> <CHELSY CLARK - Last Filed: 06/06/17 04:38> - Discharge Clinical Impression: Viral upper respiratory tract infection with cough, Hypokalemia Hypertension Qualifiers: Hypertension type: essential hypertension Qualified Code(s): I10 - Essential ( primary) hypertension Obesity Qualifiers: Obesity type: unspecified obesity type Obesity classification: adult class 3 ( BMI >= 40) Serious obesity comorbidity presence: with serious comorbidity Body mass index: BMI 45.0-49.9 Qualified Code(s): E66.9 - Obesity, unspecified Condition: Stable Disposition: HOME, SELF-CARE Additional Instructions: Today we did not find any sign of heart attack or heart failure. There is no sign of pneumonia on your chest x-ray. You appear to have a viral upper respiratory infection that is causing her cough. Please use a humidifier, nasal saline rinses, drink plenty of fluids and use the Tessalon Perles that are prescribed. Please follow-up with your produce manager as your kidney failure is a little bit worse today than usual. You have high blood pressure, please continue to take your prescribed antihypertensives. Prescriptions: Benzonatate [Tessalon Perles 100 mg Capsule] 100 mg PO ASDIR PRN #40 capsule PRN Reason: Forms: Elevated Blood Pressure Referrals: JONATHON RODRIGEZ MD [Primary Care Provider] - Follow up in 3-5 days Scribe Attestation: 06/06/17 04:38 I personally performed the services described in the documentation, reviewed and edited the documentation which was dictated to the scribe in my presence, and it accurately records my words and actions. (CHELSY CLARK) Scribe Documentation - Scribe Written by Nimisha:: Nimisha Shah, 06/06/2017 00:34 acting as scribe for :: Yamini <MALAIKA SHAIKH - Last Filed: 06/06/17 04:37>
[2017-06-06 01:08] LABS: ABSOLUTE EOSINOPHILS # (AUTO) 0.5 10^3/uL (0.0-0.6); ABSOLUTE LYMPHOCYTES (AUTO) 3.2 10^3/uL (0.5-4.7); ABSOLUTE MONOCYTES (AUTO) 0.6 10^3/uL (0.1-1.4); ABSOLUTE NEUT (AUTO) 6.3 10^3/uL (1.7-8.2); BASOPHILS % (AUTO) 0.3 % (0-2); EOSINOPHILS % (AUTO) 4.5 % (0-6); HEMATOCRIT 39.1 % (36.0-47.0); HEMOGLOBIN 13.3 g/dL (12.0-15.5); HGB HCT DIFFERENCE 0.8; LYMPHOCYTES % (AUTO) 29.9 % (13-45); MEAN CORPUSCULAR HEMOGLOBIN 29.5 pg (27.0-33.4); MEAN CORPUSCULAR VOLUME 87 fl (80-97); RED CELL DISTRIBUTION WIDTH 15.5 % (11.5-14.0); SEGMENTED NEUTROPHILS % (AUTO) 59.3 % (42-78); WHITE BLOOD COUNT 10.7 10^3/uL (4.0-10.5)
[2017-06-06 01:28] LABS: ALANINE AMINOTRANSFERASE 33 U/L (9-52); ALBUMIN 3.8 g/dL (3.5-5.0); ALKALINE PHOSPHATASE 97 U/L (38-126); ANION GAP 12 (5-19); ASPARTATE AMINO TRANSFERASE 20 U/L (14-36); BILIRUBIN,DIRECT 0.3 mg/dL (0.0-0.4); BILIRUBIN,TOTAL 0.8 mg/dL (0.2-1.3); BLOOD UREA NITROGEN 27 mg/dL (7-20); CALCIUM 9.3 mg/dL (8.4-10.2); CARBON DIOXIDE 25 mmol/L (22-30); CHLORIDE 109 mmol/L (98-107); CREATINE KINASE 181 U/L (30-135); GLUCOSE 95 mg/dL (75-110); POTASSIUM 3.3 mmol/L (3.6-5.0); SODIUM 145.9 mmol/L (137-145)
[2017-06-06 01:40] LABS: CREATINE KINASE MB 0.82 ng/mL (<4.55); TROPONIN I 0.013 ng/mL
--- NOTE | 2017-06-06 14:40 | EKG REPORT ---
SEVERITY:- ABNORMAL ECG - SINUS RHYTHM PROBABLE LEFT ATRIAL ABNORMALITY LEFT AXIS DEVIATION LEFT VENTRICULAR HYPERTROPHY ANTERIOR Q WAVES, POSSIBLY DUE TO LVH BORDERLINE T ABNORMALITIES, INFERIOR LEADS : Confirmed by: Katherine Weiss MD 06-Jun-2017 14:39:23
== END 2017-06-06 04:18 | disposition home or self-care (01) ==
LOC: ER 21:59
DX: J06.9 Acute upper respiratory infection, unspecified (principal); B97.89 Other viral agents as the cause of diseases classified elsewhere; E87.6 Hypokalemia; I10 Essential (primary) hypertension; R05 Cough; E66.9 Obesity, unspecified; R07.9 Chest pain, unspecified; I50.9 Heart failure, unspecified; R09.81 Nasal congestion
CPT/HCPCS: 93005; 99284; 36415; 82553; 82550; 85025; 80053; 84484; 83880; 71010; 93010; A9270 ×2

== ENCOUNTER 2017-06-26 20:44 | Emergency (ER) | payer MEDICARE, MEDICAID ==
[2017-06-26] MEDS ORDERED: ASPIRIN 81 MG TABLET, CHEWABLE PO ONE (21:06)
--- NOTE | 2017-06-26 21:55 | RADIOLOGY REPORT (SQ) ---
EXAM DESCRIPTION: CHEST SINGLE VIEW COMPLETED DATE/TIME: 06/26/2017 9:44 pm REASON FOR STUDY: cp COMPARISON: 06/05/2017 NUMBER OF VIEWS: One view. TECHNIQUE: Single frontal radiographic view of the chest acquired. LIMITATIONS: None. FINDINGS: LUNGS AND PLEURA: No opacities, masses or pneumothorax. No pleural effusion. MEDIASTINUM AND HILAR STRUCTURES: No masses. Contour normal. HEART AND VASCULAR STRUCTURES: Heart enlarged without failure. Normal vasculature. BONES: No acute findings. HARDWARE: None in the chest. OTHER: No other significant finding. IMPRESSION: HEART ENLARGED WITHOUT FAILURE. NO OTHER SIGNIFICANT RADIOGRAPHIC FINDING IN THE CHEST. TECHNICAL DOCUMENTATION: JOB ID: [id number] [employer]- All Rights Reserved
--- NOTE | 2017-06-26 21:56 | EKG REPORT ---
SEVERITY:- ABNORMAL ECG - SINUS RHYTHM PROBABLE LEFT ATRIAL ABNORMALITY PROBABLE LEFT VENTRICULAR HYPERTROPHY ANTERIOR Q WAVES, POSSIBLY DUE TO LVH BORDERLINE T ABNORMALITIES, INFERIOR LEADS : Confirmed by: Vasyl Benavidse 26-Jun-2017 21:56:27
[2017-06-26 22:29] LABS: ABSOLUTE BASOPHILS # (AUTO) 0.1 10^3/uL (0.0-0.2); ABSOLUTE EOSINOPHILS # (AUTO) 0.3 10^3/uL (0.0-0.6); ABSOLUTE LYMPHOCYTES (AUTO) 2.7 10^3/uL (0.5-4.7); ABSOLUTE MONOCYTES (AUTO) 0.4 10^3/uL (0.1-1.4); ABSOLUTE NEUT (AUTO) 5.2 10^3/uL (1.7-8.2); BASOPHILS % (AUTO) 0.8 % (0-2); HEMATOCRIT 40.4 % (36.0-47.0); HEMOGLOBIN 13.6 g/dL (12.0-15.5); HGB HCT DIFFERENCE 0.4; MEAN CORPUSCULAR HEMOGLOBIN 29.1 pg (27.0-33.4); MEAN CORPUSCULAR HGB CONC 33.7 g/dL (32.0-36.0); MEAN CORPUSCULAR VOLUME 86 fl (80-97); MONOCYTES % (AUTO) 5.1 % (3-13); RED BLOOD COUNT 4.68 10^6/uL (3.72-5.28); RED CELL DISTRIBUTION WIDTH 15.1 % (11.5-14.0); SEGMENTED NEUTROPHILS % (AUTO) 60.1 % (42-78); WHITE BLOOD COUNT 8.7 10^3/uL (4.0-10.5)
[2017-06-26 22:43] LABS: ANION GAP 9 (5-19); BLOOD UREA NITROGEN 15 mg/dL (7-20); CALCIUM 9.7 mg/dL (8.4-10.2); CARBON DIOXIDE 30 mmol/L (22-30); CHLORIDE 105 mmol/L (98-107); CREATININE RESULT 1.39 mg/dL (0.52-1.25); GLUCOSE 94 mg/dL (75-110); POTASSIUM 3.5 mmol/L (3.6-5.0); SODIUM 144.2 mmol/L (137-145)
--- NOTE | 2017-06-26 22:47 | ER Document Report ---
ED General - General Chief Complaint: Chest Pain Stated Complaint: POSSIBLE PNEUMONIA Time Seen by Provider: 06/26/17 21:33 Notes: Patient is a 51-year-old female who presents with left-sided chest pain without radiation. She describes it as a stabbing, constant, aching pain to the left side of her chest. States that coughing seems to have triggered the pain and does worsen the pain. She has not tried anything to improve the pain. She denies a history of similar symptoms in the past. She denies any associated shortness of breath, nausea, vomiting, or syncope. She notes that this pain started after she had multiple episodes of coughing which started last night. She states she believes she has a viral upper respiratory infection and she has had a sore throat with associated sinus pressure, postnasal drip and coughing. She has not seen her primary care doctor regarding today's concerns. She denies any history of DVT or pulmonary embolus, aortic pathology, connective tissue disorders, or coronary artery disease. She notes that she has a history of nonischemic cardiomyopathy from uncontrolled hypertension TRAVEL OUTSIDE OF THE [place] IN LAST 30 DAYS: No - Related Data Allergies/Adverse Reactions: acetaminophen [Acetaminophen] Allergy (Severe, Verified 06/05/17 22:31) itching Shellfish * [Shellfish] Allergy (Severe, Verified 06/05/17 22:31) itch, rash Sulfa (Sulfonamide Antibiotics) Allergy (Severe, Verified 06/05/17 22:31) Hives Iodinated Contrast- Oral and IV Dye [IV Dye, Iodine Containing] Allergy ( Intermediate, Verified 06/05/17 22:31) rash, itching iodine [Iodine] Allergy (Intermediate, Verified 06/05/17 22:31) itch, rash Past Medical History - General Information source: Patient - Social History Smoking Status: Never Smoker Chew tobacco use (# tins/day): No Frequency of alcohol use: None Drug Abuse: None Lives with: Family Family History: Arthritis, CAD, DM, Hyperlipidemia, Hypertension, Malignancy, Thyroid Disfunction, Other - kidney disease Patient has suicidal ideation: No Patient has homicidal ideation: No - Past Medical History Cardiac Medical History: Reports: Hx Congestive Heart Failure, Hx Coronary Artery Disease, Hx Hypercholesterolemia, Hx Hypertension Denies: Hx Heart Attack Pulmonary Medical History: Reports: Hx Asthma Neurological Medical History: Reports: Hx Migraine Endocrine Medical History: Reports: Hx Diabetes Mellitus Type 2 Renal/ Medical History: Reports: Hx Kidney Stones. Denies: Hx Peritoneal Dialysis Musculoskeltal Medical History: Reports Hx Arthritis, Reports Hx Musculoskeletal Deformity, Reports Hx Musculoskeletal Trauma Psychiatric Medical History: Reports: Hx Depression Past Surgical History: Reports: Hx Adenoidectomy, Hx Cardiac Catheterization, Hx Cholecystectomy, Hx Coronary Stent - x4 in 2009 according to the patient, Hx Hysterectomy, Hx Tonsillectomy, Hx Tubal Ligation - Immunizations Immunizations up to date: Yes Hx Diphtheria, Pertussis, Tetanus Vaccination: Yes Review of Systems - Review of Systems Notes: Constitutional: Negative for fever. HENT: Negative for sore throat. Eyes: Negative for visual changes. Cardiovascular: Positive for chest pain. Respiratory: Negative for shortness of breath. Positive for cough Gastrointestinal: Negative for abdominal pain, vomiting or diarrhea. Genitourinary: Negative for dysuria. Musculoskeletal: Negative for back pain. Skin: Negative for rash. Neurological: Negative for headaches, weakness or numbness. 10 point ROS negative except as marked above and in HPI. Physical Exam - Vital signs Vitals: Temp Pulse Resp BP Pulse Ox 97.8 F 52 L 20 172/120 H 99 06/26/17 20:46 06/26/17 20:46 06/26/17 20:46 06/26/17 20:46 06/26/17 20:46 Interpretation: Bradycardic Notes: PHYSICAL EXAMINATION: GENERAL: Well-appearing, well-nourished and in no acute distress. HEAD: Atraumatic, normocephalic. EYES: Pupils equal round and reactive to light, extraocular movements intact, sclera anicteric, conjunctiva are normal. ENT: nares patent, oropharynx clear without exudates. Moist mucous membranes. NECK: Normal range of motion, supple without lymphadenopathy LUNGS: Breath sounds clear to auscultation bilaterally and equal. No wheezes rales or rhonchi. HEART: Regular rate and rhythm without murmurs ABDOMEN: Soft, nontender, normoactive bowel sounds. No guarding, no rebound. No masses appreciated. EXTREMITIES: Normal range of motion, no pitting or edema. No cyanosis. NEUROLOGICAL: No focal neurological deficits. Moves all extremities spontaneously and on command. PSYCH: Normal mood, normal affect. SKIN: Warm, Dry, normal turgor, no rashes or lesions noted. Course - Re-evaluation Re-evalutation: 06/26/17 22:45 Presentation of chest pain in an otherwise well appearing patient. Low clinical suspicion for ACS given clinical history, exam, EKG without ST elevations or depressions, and negative initial troponin. HEART score less than or equal to 3. PE also seems unlikely given clinical history, absence of tachycardia or dyspnea. Well's score is 0. CXR without evidence of pneumothorax or pneumonia. Cardiomegaly without vascular congestion of which patient has a history. No widened mediastinum. Aortic dissection also seems unlikely given history, symmetric pulses, CXR, and vitals. Clinical history is most consistent with chest pain secondary to a recent viral upper respiratory illnesses patient is complaining of sore throat, cough and congestion states that his symptoms started after multiple episodes of persistent coughing. However given her clinical history of multiple risk factors a delta troponin will also be obtained to exclude any possibility of an acute infarction event. If this remains normal plan for discharge home. HEART Score: History:0 ECG1 Age:1 Risk Factors:1 Troponin:0 Total: 3 06/27/17 02:51 Repeat troponin remains normal. Final assessment:Chest pain in a patient without evidence of cardiac or other serious etiology on workup today. I discussed with patient that, based on their age, risk factors and emergency department testing today, the likelihood that their symptoms are related to a heart attack is very low (estimated risk of heart attack or over the next 30 days of less than 1%). The patient demonstrates decision making capacity and has verbalized an understanding of these risks to me. Based on this, the patient has chosen to follow-up as an outpatient. Usual chest pain return precautions reviewed. The patient states understanding and agreement with this plan. - Vital Signs Vital signs: Temp Pulse Resp BP Pulse Ox 97.8 F 52 L 17 161/114 H 98 06/26/17 20:46 06/26/17 20:46 06/27/17 01:31 06/27/17 01:31 06/27/17 01:31 - Laboratory Result Diagrams: 06/26/17 22:17 06/26/17 22:17 Laboratory results interpreted by me: 06/26/17 06/26/17 22:17 22:17 RDW 15.1 H Potassium 3.5 L Creatinine 1.39 H Est GFR ( Amer) 48 L Est GFR (Non-Af Amer) 40 L - Diagnostic Test Radiology reviewed: Image reviewed, Reports reviewed Radiology results interpreted by me: 06/26/17 22:47 Chest x-ray: No acute infiltrate or pneumothorax - EKG Interpretation by Me Additional EKG results interpreted by me: 06/26/17 22:47 Sinus bradycardia. Rate 56. T-wave flattening in V6. Unchanged from prior. No ST elevations or depressions. QTC is 456. Discharge - Discharge Clinical Impression: Viral upper respiratory infection Chest pain Qualifiers: Chest pain type: unspecified Qualified Code(s): R07.9 - Chest pain, unspecified Condition: Good Disposition: HOME, SELF-CARE Additional Instructions: You were seen today for chest pain. The exact cause of your pain is unclear. However, based on your cardiac enzyme testing, chest x-ray, and EKG it does not appear that it is from an immediately life-threatening cause at this time. Although your testing here is normal is critical that you follow-up with your primary care physician for continued evaluation of this chest pain and possible stress testing. I recommended you see your physician within the next 24-48 hours to be evaluated for consideration of a stress test. Please return to emergency department immediately if you have worsening of your chest pain, shortness of breath, vomiting, become unable to exert yourself due to pain or difficulty breathing, you pass out, or have any pain that radiates into your arms, jaw, or back. Please also return if you have any additional symptoms that are concerning to you.
[2017-06-26] MEDS ORDERED: LIDOCAINE 5% (700 MG) TRANSDERMAL ADH..PATCH TP ONE (23:37)
[2017-06-27 02:58] VITALS: BP 158/85
== END 2017-06-27 02:25 | disposition home or self-care (01) ==
LOC: ER 20:44
DX: J02.8 Acute pharyngitis due to other specified organisms (principal); B97.89 Other viral agents as the cause of diseases classified elsewhere; R07.9 Chest pain, unspecified; R05 Cough; J34.89 Other specified disorders of nose and nasal sinuses; R09.82 Postnasal drip; R00.1 Bradycardia, unspecified; I11.9 Hypertensive heart disease without heart failure; I25.10 Atherosclerotic heart disease of native coronary artery without angina pectoris; E11.9 Type 2 diabetes mellitus without complications; J45.909 Unspecified asthma, uncomplicated; Z88.6 Allergy status to analgesic agent; Z91.013 Allergy to seafood; Z88.2 Allergy status to sulfonamides; Z91.041 Radiographic dye allergy status
CPT/HCPCS: 36415; 71010; 80048; 84484; 85025; 93005; 93010; 99285

== ENCOUNTER 2017-08-19 19:49 | Emergency (ER) | payer MEDICARE, MEDICAID ==
--- NOTE | 2017-08-19 20:40 | ER Document Report ---
ED Medical Screen (RME) - General Chief Complaint: Nausea/Vomiting/Diarrhea Stated Complaint: NAUSEA VOMITING Time Seen by Provider: 08/19/17 20:37 Mode of Arrival: Medic Information source: Patient TRAVEL OUTSIDE OF THE [place] IN LAST 30 DAYS: No - HPI Patient complains to provider of: Abd pain Onset: This morning - pt with onset of Abd pain with N/V/D starting earlier this am - Related Data Allergies/Adverse Reactions: acetaminophen [Acetaminophen] Allergy (Severe, Verified 06/05/17 22:31) itching Shellfish * [Shellfish] Allergy (Severe, Verified 06/05/17 22:31) itch, rash Sulfa (Sulfonamide Antibiotics) Allergy (Severe, Verified 06/05/17 22:31) Hives Iodinated Contrast- Oral and IV Dye [IV Dye, Iodine Containing] Allergy ( Intermediate, Verified 06/05/17 22:31) rash, itching iodine [Iodine] Allergy (Intermediate, Verified 06/05/17 22:31) itch, rash Past Medical History - Social History Chew tobacco use (# tins/day): No Frequency of alcohol use: None Drug Abuse: None - Past Medical History Cardiac Medical History: Reports: Hx Congestive Heart Failure, Hx Coronary Artery Disease, Hx Hypercholesterolemia, Hx Hypertension Denies: Hx Heart Attack Pulmonary Medical History: Reports: Hx Asthma Neurological Medical History: Reports: Hx Migraine Endocrine Medical History: Reports: Hx Diabetes Mellitus Type 2 Renal/ Medical History: Reports: Hx Kidney Stones. Denies: Hx Peritoneal Dialysis Musculoskeltal Medical History: Reports Hx Arthritis, Reports Hx Musculoskeletal Deformity, Reports Hx Musculoskeletal Trauma Psychiatric Medical History: Reports: Hx Depression Past Surgical History: Reports: Hx Adenoidectomy, Hx Cardiac Catheterization, Hx Cholecystectomy, Hx Coronary Stent - x4 in 2009 according to the patient, Hx Hysterectomy, Hx Tonsillectomy, Hx Tubal Ligation - Immunizations Immunizations up to date: Yes Hx Diphtheria, Pertussis, Tetanus Vaccination: Yes Physical Exam - Vital signs Vitals: Temp Pulse Resp BP Pulse Ox 99.0 F 74 18 145/99 H 95 08/19/17 20:21 08/19/17 20:21 08/19/17 20:21 08/19/17 20:21 08/19/17 20:21 Course - Vital Signs Vital signs: Temp Pulse Resp BP Pulse Ox 99.0 F 74 18 145/99 H 95 08/19/17 20:21 08/19/17 20:21 08/19/17 20:21 08/19/17 20:21 08/19/17 20:21
--- NOTE | 2017-08-19 21:27 | RADIOLOGY REPORT (SQ) ---
EXAM DESCRIPTION: ACUTE ABDOMEN SERIES COMPLETED DATE/TIME: 08/19/2017 9:19 pm REASON FOR STUDY: abd pain COMPARISON: None. 06/26/2017 NUMBER OF VIEWS: Three views. TECHNIQUE: PA chest, supine abdomen and upright/decubitus abdomen radiographic images acquired. LIMITATIONS: None. FINDINGS: CHEST: Parenchymal opacities at the right lung base. FREE AIR: None. No abnormal gas collections. BOWEL GAS PATTERN: Few scattered small bowel loops with air fluid levels. No distended large or small bowel loops. CALCIFICATIONS: No suspicious calcifications. HARDWARE: None in the abdomen. SOFT TISSUES: No gross mass or suggestion of organomegaly. BONES: No acute fracture. No worrisome bone lesions. OTHER: No other significant finding. IMPRESSION: NONSPECIFIC BOWEL GAS PATTERN WITHOUT EVIDENCE FOR OBSTRUCTION. Right basilar atelectas is/infiltrate. TECHNICAL DOCUMENTATION: JOB ID: [id number] [employer]- All Rights Reserved
[2017-08-19 21:57] LABS: APPEARANCE,URINE SLIGHTLY-CLOUDY; BILIRUBIN,URINE NEGATIVE (NEGATIVE); COLOR,URINE YELLOW; GLUCOSE, URINE NEGATIVE (NEGATIVE); KETONES,URINE NEGATIVE (NEGATIVE); LEUKOCYTE ESTERASE,URINE NEGATIVE (NEGATIVE); NITRITE,URINE NEGATIVE (NEGATIVE); PROTEIN,URINE >=500 mg/dL (NEGATIVE); UROBILINOGEN,URINE NEGATIVE mg/dL (<2.0)
--- NOTE | 2017-08-19 22:03 | ER Document Report ---
ED General - General Chief Complaint: Nausea/Vomiting/Diarrhea Stated Complaint: NAUSEA VOMITING Time Seen by Provider: 08/19/17 20:37 Mode of Arrival: Medic Notes: 51-year-old lady with diabetes and congestive heart failure presents with sudden onset diarrhea and crampy abdominal pain about 6 hours ago followed by nausea but no vomiting. The pain is intermittent and periumbilical. She had 3 episodes of diarrhea. She was given Zofran in the [employer] relationship [employer] rig. She since then she has tried some water but "spit up". She has no urinary pain shortness of breath fever or chills. She feels "bad." She was at a [place] [employer] but no one had GI illness. No antibiotics or foreign travel. TRAVEL OUTSIDE OF THE [place] IN LAST 30 DAYS: No - Related Data Allergies/Adverse Reactions: acetaminophen [Acetaminophen] Allergy (Severe, Verified 06/05/17 22:31) itching Shellfish * [Shellfish] Allergy (Severe, Verified 06/05/17 22:31) itch, rash Sulfa (Sulfonamide Antibiotics) Allergy (Severe, Verified 06/05/17 22:31) Hives Iodinated Contrast- Oral and IV Dye [IV Dye, Iodine Containing] Allergy ( Intermediate, Verified 06/05/17 22:31) rash, itching iodine [Iodine] Allergy (Intermediate, Verified 06/05/17 22:31) itch, rash Past Medical History - General Information source: Patient - Social History Smoking Status: Never Smoker Chew tobacco use (# tins/day): No Frequency of alcohol use: None Drug Abuse: None Family History: Arthritis, CAD, DM, Hyperlipidemia, Hypertension, Malignancy, Thyroid Disfunction, Other - kidney disease Patient has suicidal ideation: No Patient has homicidal ideation: No - Past Medical History Cardiac Medical History: Reports: Hx Congestive Heart Failure, Hx Coronary Artery Disease, Hx Hypercholesterolemia, Hx Hypertension Denies: Hx Heart Attack Pulmonary Medical History: Reports: Hx Asthma Neurological Medical History: Reports: Hx Migraine Endocrine Medical History: Reports: Hx Diabetes Mellitus Type 2 Renal/ Medical History: Reports: Hx Kidney Stones. Denies: Hx Peritoneal Dialysis Musculoskeltal Medical History: Reports Hx Arthritis, Reports Hx Musculoskeletal Deformity, Reports Hx Musculoskeletal Trauma Psychiatric Medical History: Reports: Hx Depression Past Surgical History: Reports: Hx Adenoidectomy, Hx Cardiac Catheterization, Hx Cholecystectomy, Hx Coronary Stent - x4 in 2009 according to the patient, Hx Hysterectomy, Hx Tonsillectomy, Hx Tubal Ligation - Immunizations Immunizations up to date: Yes Hx Diphtheria, Pertussis, Tetanus Vaccination: Yes Review of Systems - Review of Systems Notes: REVIEW OF SYSTEMS GEN: Denies fever, chills, weight loss ENT: Denies sore throat, nasal discharge, ear pain EYES: Denies blurry vision, eye pain, discharge CV: Denies chest pain, palpitations, edema RESP: Denies cough, shortness of breath, wheezing GI: Vomiting diarrhea and crampy intermittent abdominal pain MSK: Denies joint pain/swelling, edema, SKIN: Denies rash, skin lesions LYMPH: Denies swollen glands/lymph nodes NEURO: Denies headache, focal weakness or numbness, dizziness PSYCH: Denies depression, suicidal or homicidal ideation PHYSICAL EXAMINATION General: No acute distress, well-nourished Head: Atraumatic, normocephalic ENT: Mouth normal, oropharynx dry, no exudates or tonsillar enlargement Eyes: Conjunctiva normal, pupils equal, lids normal Neck: No JVD, supple, no guarding CVS: Normal rate, regular rhythm, no murmurs Resp: No resp distress, equal and normal breath sounds bilaterally GI: Nondistended, soft, no tenderness to palpation, no rebound or guarding Ext: No deformities, no edema, normal range of motion in upper and lower ext Back: No CVA or midline TTP Skin: No rash, warm Lymphatic: No lymphadeopathy noted Neuro: Awake, alert. Face symmetric. GCS 15. Physical Exam - Vital signs Vitals: Temp Pulse Resp BP Pulse Ox 99.0 F 74 18 145/99 H 95 08/19/17 20:21 08/19/17 20:21 08/19/17 20:21 08/19/17 20:21 08/19/17 20:21 Course - Re-evaluation Re-evalutation: 08/19/17 22:02 CHF diabetes patient presents with diarrhea abrupt onset of crampy belly pain and nausea. Her abdominal exam is benign her labs are normal. She did check her sugar today it was 89. 08/19/17 23:09 Patient has mild elevation of white count but otherwise her labs are normal and her creatinine is within her baseline fluctuation. No evidence of diabetic ketoacidosis. Will be discharged home if she can tolerate oral intake, with p.o. Zofran hydration instructions and follow-up with primary care. I have discussed with the patient there likely diagnosis, aftercare plan, follow -up plans and my usual and customary return precautions. They verbalized understanding of this. 08/19/17 23:17 Abdominal imaging ordered at triage is normal. Patient tolerated oral intake after IV fluids and was discharged in stable condition. - Vital Signs Vital signs: Temp Pulse Resp BP Pulse Ox 99.3 F 87 18 146/102 H 95 08/19/17 23:16 08/19/17 23:16 08/19/17 23:16 08/19/17 23:16 08/19/17 23:16 - Laboratory Result Diagrams: 08/19/17 22:30 08/19/17 22:30 Laboratory results interpreted by me: 08/19/17 08/19/17 08/19/17 21:38 22:30 22:30 WBC 13.2 H RDW 15.2 H Seg Neuts % (Manual) 91 H Lymphocytes % (Manual) 4 L Abs Neuts (Manual) 12.0 H BUN 30 H Creatinine 1.48 H Est GFR ( Amer) 45 L Est GFR (Non-Af Amer) 37 L Glucose 116 H Urine Protein >=500 H - Diagnostic Test Radiology reviewed: Image reviewed, Reports reviewed Discharge - Discharge Clinical Impression: Vomiting and diarrhea Condition: Good Disposition: HOME, SELF-CARE Additional Instructions: Except for a mild elevation in your white blood cell count or lab testing was normal. This is likely food poisoning or viral illness given its abrupt onset. That said, if your symptoms do not improve with the medicines I prescribed in your pain gets worse or you develop a fever or cannot hold any food down please return to the ER as you may need a CAT scan in the future if this gets worse. Otherwise please follow-up with your primary care. Prescriptions: Ondansetron [Zofran Odt 4 mg Tablet] 1 - 2 tab PO Q4H PRN #15 tab.rapdis PRN Reason: For Nausea/Vomiting Referrals: JONATHON RODRIGEZ MD [Primary Care Provider] - Follow up as needed
[2017-08-19] MEDS: METOCLOPRAMIDE HCL INJ/PF 10 MG/2 ML SDV IV ONE (22:24)
[2017-08-19] MEDS: NORMAL SALINE 1000 ML 250 ML IV ONE (22:24)
[2017-08-19 22:41] LABS: HEMATOCRIT 42.7 % (36.0-47.0); HEMOGLOBIN 14.4 g/dL (12.0-15.5); MEAN CORPUSCULAR HGB CONC 33.7 g/dL (32.0-36.0); MEAN CORPUSCULAR VOLUME 86 fl (80-97); PLATELET COUNT 228 10^3/uL (150-450); RED BLOOD COUNT 4.97 10^6/uL (3.72-5.28); RED CELL DISTRIBUTION WIDTH 15.2 % (11.5-14.0); WHITE BLOOD COUNT 13.2 10^3/uL (4.0-10.5)
[2017-08-19 22:57] LABS: ALANINE AMINOTRANSFERASE 30 U/L (9-52); ALKALINE PHOSPHATASE 94 U/L (38-126); ANION GAP 7 (5-19); ASPARTATE AMINO TRANSFERASE 24 U/L (14-36); BILIRUBIN,DIRECT 0.4 mg/dL (0.0-0.4); BILIRUBIN,TOTAL 0.8 mg/dL (0.2-1.3); BLOOD UREA NITROGEN 30 mg/dL (7-20); CARBON DIOXIDE 26 mmol/L (22-30); CHLORIDE 105 mmol/L (98-107); GLUCOSE 116 mg/dL (75-110); POTASSIUM 4.2 mmol/L (3.6-5.0); TOTAL PROTEIN 6.8 g/dL (6.3-8.2)
[2017-08-19 22:58] LABS: ABSOLUTE LYMPHOCYTES# (MANUAL) 0.5 10^3/uL (0.5-4.7); ABSOLUTE MONOCYTES # (MANUAL) 0.7 10^3/uL (0.1-1.4); BASOPHILS % (MANUAL) 0 % (0-2); EOSINOPHILS % (MANUAL) 0 % (0-6); LYMPHOCYTES % (MANUAL) 4 % (13-45); MONOCYTES % (MANUAL) 5 % (3-13); SEGMENTED NEUTROPHILS % (MAN) 91 % (42-78); TOTAL CELLS COUNTED 100
[2017-08-19 23:00] LABS: ANISOCYTOSIS SLIGHT; PLATELET COMMENT ADEQUATE; TOXIC GRANULATION SLIGHT
[2017-08-19 23:18] VITALS: BP 146/102
== END 2017-08-19 23:33 | disposition home or self-care (01) ==
LOC: ER 19:49
DX: R11.2 Nausea with vomiting, unspecified (principal); R19.7 Diarrhea, unspecified; R10.33 Periumbilical pain; D72.829 Elevated white blood cell count, unspecified; I11.0 Hypertensive heart disease with heart failure; I50.9 Heart failure, unspecified; I25.10 Atherosclerotic heart disease of native coronary artery without angina pectoris; Z88.6 Allergy status to analgesic agent; Z91.013 Allergy to seafood; Z88.2 Allergy status to sulfonamides; Z91.041 Radiographic dye allergy status; Z95.5 Presence of coronary angioplasty implant and graft
CPT/HCPCS: 99284; 96374; 36415; 85025; 80053; 81001; 74022; J2765; J7030

== ENCOUNTER 2017-11-07 22:27 | Emergency (ER) | payer MEDICARE, MEDICAID ==
[2017-11-08] MEDS ORDERED: BENZONATATE 100 MG CAPSULE PO ONE (00:50)
--- NOTE | 2017-11-08 00:51 | ER Document Report ---
ED General - General Chief Complaint: Productive Cough Stated Complaint: SORE THROAT/COUGH Time Seen by Provider: 11/08/17 00:36 Notes: Patient is a 52-year-old female that comes emergency department for chief complaint of sore throat and a productive cough, she states she is coughed up some green sputum today, she reports chills. She denies sinus pain, headache, chest pain, she only states that she is short of breath when she is having a coughing episode. She does have a history of asthma, she states she has not been wheezing and has not required her albuterol inhaler today. She does not smoke. Other past medical history includes hypertension, type 2 diabetes. Patient does report sick family members with "colds". TRAVEL OUTSIDE OF THE [place] IN LAST 30 DAYS: No - Related Data Allergies/Adverse Reactions: acetaminophen [Acetaminophen] Allergy (Severe, Verified 06/05/17 22:31) itching Shellfish * [Shellfish] Allergy (Severe, Verified 06/05/17 22:31) itch, rash Sulfa (Sulfonamide Antibiotics) Allergy (Severe, Verified 06/05/17 22:31) Hives Iodinated Contrast- Oral and IV Dye [IV Dye, Iodine Containing] Allergy ( Intermediate, Verified 06/05/17 22:31) rash, itching iodine [Iodine] Allergy (Intermediate, Verified 06/05/17 22:31) itch, rash Past Medical History - General Information source: Patient - Social History Smoking Status: Never Smoker Frequency of alcohol use: None Drug Abuse: None Lives with: Family Family History: Arthritis, CAD, DM, Hyperlipidemia, Hypertension, Malignancy, Thyroid Disfunction, Other - kidney disease Patient has suicidal ideation: No Patient has homicidal ideation: No - Past Medical History Cardiac Medical History: Reports: Hx Congestive Heart Failure, Hx Coronary Artery Disease, Hx Hypercholesterolemia, Hx Hypertension Denies: Hx Heart Attack Pulmonary Medical History: Reports: Hx Asthma Neurological Medical History: Reports: Hx Migraine Endocrine Medical History: Reports: Hx Diabetes Mellitus Type 2 Renal/ Medical History: Reports: Hx Kidney Stones. Denies: Hx Peritoneal Dialysis Musculoskeltal Medical History: Reports Hx Arthritis, Reports Hx Musculoskeletal Deformity, Reports Hx Musculoskeletal Trauma Psychiatric Medical History: Reports: Hx Depression Past Surgical History: Reports: Hx Adenoidectomy, Hx Cardiac Catheterization, Hx Cholecystectomy, Hx Coronary Stent - x4 in 2009 according to the patient, Hx Hysterectomy, Hx Tonsillectomy, Hx Tubal Ligation - Immunizations Immunizations up to date: Yes Hx Diphtheria, Pertussis, Tetanus Vaccination: Yes Review of Systems - Review of Systems Constitutional: See HPI EENT: See HPI Cardiovascular: No symptoms reported Respiratory: See HPI Gastrointestinal: No symptoms reported Genitourinary: No symptoms reported Female Genitourinary: No symptoms reported Musculoskeletal: No symptoms reported Skin: No symptoms reported Hematologic/Lymphatic: No symptoms reported Neurological/Psychological: No symptoms reported Physical Exam - Vital signs Vitals: Temp Pulse BP Pulse Ox 99.0 F 67 152/107 H 95 11/07/17 22:53 11/07/17 22:53 11/07/17 22:53 11/07/17 22:53 Interpretation: Normal - General General appearance: Appears well In distress: None - HEENT Head: Normocephalic, Atraumatic Eyes: Normal Extraocular movements intact: Yes Eyelashes: Normal Pupils: PERRL Sinus: Other - Minimal sinus tenderness over the maxillary sinuses Nasal: Normal Mouth/Lips: Normal Mucous membranes: Normal Pharynx: Normal Neck: Normal. No: Meningismus - Respiratory Respiratory status: No respiratory distress. No: Respiratory distress, Labored , Tachypnea Chest status: Nontender Breath sounds: Other - Frequent nonproductive cough at bedside, a few coarse breath sounds on the right compared to left, no decreased breath sounds, no rales, wheezing, rhonchi Chest palpation: Normal - Cardiovascular Rhythm: Regular. No: Tachycardia Heart sounds: Normal auscultation, S1 appreciated, S2 appreciated Murmur: No - Abdominal Inspection: Normal Distension: No distension Bowel sounds: Normal Tenderness: Nontender Organomegaly: No organomegaly - Back Back: Normal, Nontender. No: Tender - Extremities General upper extremity: Normal inspection, Nontender, Normal strength, Normal temperature General lower extremity: Normal inspection, Nontender, Normal strength, Normal temperature. No: Edema - Neurological Neuro grossly intact: Yes Cognition: Normal Orientation: AAOx4 Lazarus Coma Scale Eye Opening: Spontaneous Lazarus Coma Scale Verbal: Oriented Lazarus Coma Scale Motor: Obeys Commands Lazarus Coma Scale Total: 15 Speech: Normal Motor strength normal: LUE, RUE, LLE, RLE Sensory: Normal - Psychological Associated symptoms: Normal affect, Normal mood - Skin Skin Temperature: Warm Skin Moisture: Dry Skin Color: Normal Course - Re-evaluation Re-evalutation: 11/08/17 07:14 Patient's cough is improved after Tessalon. Unremarkable vital signs including no hypoxia. Few coarse breath sounds on the right compared to the left but no wheezing, rales, rhonchi, tachypnea, or signs of distress. Patient with borderline sinus tenderness. She is well-appearing. Chest x-ray is unremarkable, strep is negative, pharynx and neck unremarkable exam. Discussed with patient. Patient has had congestion and drainage for a while she states, now she is worsening and has a productive cough with chills, she also has asthma, as result decision was made to have patient covered with azithromycin for productive cough and chills along with prednisone to prevent her from having increased difficulty breathing on a short taper dose. Patient' s follow-up with primary care, return precautions discussed, patient states satisfaction and agreement. - Vital Signs Vital signs: Temp Pulse Resp BP Pulse Ox 98.7 F 73 16 124/83 97 11/08/17 02:44 11/08/17 02:44 11/08/17 02:44 11/08/17 02:44 11/08/17 02:44 Discharge - Discharge Clinical Impression: Productive cough, Sore throat Condition: Stable Disposition: HOME, SELF-CARE Additional Instructions: Your chest x-ray does not show pneumonia, your strep test is negative, your symptoms and examination are most consistent with a developing bronchitis. Take prescribed medications, take Tessalon if needed for cough, drink plenty fluids and rest. Use your inhaler as needed. Avoid carbohydrate/sugar while taking prednisone. Follow-up closely with your primary care provider. Return if you worsen including difficulty breathing, spiking fever, or any other concerning or worsening symptoms. Prescriptions: Benzonatate [Tessalon Perle 100 mg Capsule] 100 mg PO Q8HP PRN #20 cap PRN Reason: Azithromycin [Zithromax 250 mg Tablet] 250 mg PO ASDIR PRN #4 tablet PRN Reason: Prednisone [Deltasone 10 mg Tablet] 10 mg PO ASDIR PRN #21 tablet PRN Reason: Referrals: JONATHON RODRIGEZ MD [Primary Care Provider] - Follow up as needed
--- NOTE | 2017-11-08 01:44 | RADIOLOGY REPORT (SQ) ---
EXAM DESCRIPTION: CHEST 2 VIEWS CLINICAL HISTORY: 52 years Female, productive cough, chills COMPARISON: 12.14.17 NUMBER OF VIEWS/TECHNIQUE: 2, PA and Lateral LIMITATIONS: None. FINDINGS: Moderate lung volume. Clear parenchyma. Normal cardiac silhouette. Intact bony thorax. IMPRESSION: No acute cardiopulmonary findings.
[2017-11-08] MEDS ORDERED: AZITHROMYCIN 250 MG TABLET PO ONE (02:30)
[2017-11-08 02:46] VITALS: BP 124/83
== END 2017-11-08 02:44 | disposition home or self-care (01) ==
LOC: ER 22:27
DX: J02.9 Acute pharyngitis, unspecified (principal); R05 Cough; I50.9 Heart failure, unspecified; I25.10 Atherosclerotic heart disease of native coronary artery without angina pectoris; E78.00 Pure hypercholesterolemia, unspecified; I11.0 Hypertensive heart disease with heart failure; E11.9 Type 2 diabetes mellitus without complications; Z88.6 Allergy status to analgesic agent; Z88.2 Allergy status to sulfonamides; Z91.013 Allergy to seafood; Z90.710 Acquired absence of both cervix and uterus
CPT/HCPCS: 99284; 87070; 87880; 71046; A9270 ×2

== ENCOUNTER 2017-12-10 23:36 | Emergency (ER) | payer MEDICARE, MEDICAID ==
[2017-12-11] MEDS ORDERED: AMOXICILLIN TR/POT CLAVULANATE 500-125 MG TAB PO ONE (02:04)
[2017-12-11] MEDS ORDERED: TRAMADOL HCL 50 MG TABLET PO ONE (02:04)
--- NOTE | 2017-12-11 02:09 | ER Document Report ---
ED General - General Chief Complaint: Sore Throat Stated Complaint: THROAT PAIN Time Seen by Provider: 12/11/17 01:43 Mode of Arrival: Ambulatory Information source: Patient Notes: 52-year-old female with diabetes, hypertension, chronic pain, congestive heart failure, hyperlipidemia presents with complaint of cough, right ear pain, sore throat. Patient states that cough started 2 days prior to arrival. She describes it as a constant duct of cough without associated shortness of breath. Patient ear pain started 5 hours prior to arrival. She describes it as located in her right ear, throbbing and not relieved with Tylenol or sweet oil. Patient also complaining of pain with swallowing. She denies any fever, chills, nausea, vomiting, chest pain, shortness of breath. She denies sick contacts. TRAVEL OUTSIDE OF THE [place] IN LAST 30 DAYS: No - HPI Onset: Other Onset/Duration: Gradual Quality of pain: Achy Severity: Mild Associated symptoms: Productive cough, Earache, Hoarseness Exacerbated by: Denies Relieved by: Denies Similar symptoms previously: Yes Recently seen / treated by doctor: Yes - Related Data Allergies/Adverse Reactions: acetaminophen [Acetaminophen] Allergy (Severe, Verified 06/05/17 22:31) itching Shellfish * [Shellfish] Allergy (Severe, Verified 06/05/17 22:31) itch, rash Sulfa (Sulfonamide Antibiotics) Allergy (Severe, Verified 06/05/17 22:31) Hives Iodinated Contrast- Oral and IV Dye [IV Dye, Iodine Containing] Allergy ( Intermediate, Verified 06/05/17 22:31) rash, itching iodine [Iodine] Allergy (Intermediate, Verified 06/05/17 22:31) itch, rash Past Medical History - General Information source: Patient - Social History Smoking Status: Never Smoker Frequency of alcohol use: None Drug Abuse: None Lives with: Family Family History: Arthritis, CAD, DM, Hyperlipidemia, Hypertension, Malignancy, Thyroid Disfunction, Other - kidney disease - Past Medical History Cardiac Medical History: Reports: Hx Congestive Heart Failure, Hx Coronary Artery Disease, Hx Hypercholesterolemia, Hx Hypertension Denies: Hx Heart Attack Pulmonary Medical History: Reports: Hx Asthma Neurological Medical History: Reports: Hx Migraine Endocrine Medical History: Reports: Hx Diabetes Mellitus Type 2 Renal/ Medical History: Reports: Hx Kidney Stones. Denies: Hx Peritoneal Dialysis Musculoskeltal Medical History: Reports Hx Arthritis, Reports Hx Musculoskeletal Deformity, Reports Hx Musculoskeletal Trauma Psychiatric Medical History: Reports: Hx Depression Past Surgical History: Reports: Hx Adenoidectomy, Hx Cardiac Catheterization, Hx Cholecystectomy, Hx Coronary Stent - x4 in 2009 according to the patient, Hx Hysterectomy, Hx Tonsillectomy, Hx Tubal Ligation - Immunizations Immunizations up to date: Yes Hx Diphtheria, Pertussis, Tetanus Vaccination: Yes Review of Systems - Review of Systems Constitutional: Malaise. denies: Fever EENT: Ear pain, Nose congestion, Nose discharge, Sinus pressure, Throat pain Cardiovascular: denies: Chest pain Respiratory: Cough. denies: Short of breath Gastrointestinal: denies: Abdominal pain Genitourinary: denies: Dysuria Female Genitourinary: No symptoms reported Musculoskeletal: No symptoms reported Skin: No symptoms reported Hematologic/Lymphatic: No symptoms reported Neurological/Psychological: No symptoms reported -: Yes All other systems reviewed and negative Physical Exam - Vital signs Vitals: Temp Pulse Resp BP Pulse Ox 98.6 F 83 18 136/90 H 98 12/10/17 23:43 12/10/17 23:43 12/10/17 23:43 12/10/17 23:43 12/10/17 23:43 - Notes Notes: PHYSICAL EXAMINATION: GENERAL: Well-appearing, well-nourished and in no acute distress. HEAD: Atraumatic, normocephalic. EYES: Pupils equal round and reactive to light, extraocular movements intact, conjunctiva are normal. ENT: Nares patent, oropharynx clear without exudates. Moist mucous membranes. Right TM erythematous, bulging. NECK: Normal range of motion, supple without lymphadenopathy LUNGS: Breath sounds clear to auscultation bilaterally and equal. No wheezes rales or rhonchi. HEART: Regular rate and rhythm without murmurs ABDOMEN: Soft, nontender, nondistended abdomen. No guarding, no rebound. No masses appreciated. Female : deferred Musculoskeletal: Normal range of motion, no pitting or edema. No cyanosis. NEUROLOGICAL: Cranial nerves grossly intact. Normal speech, normal gait. Normal sensory, motor exams PSYCH: Normal mood, normal affect. SKIN: Warm, Dry, normal turgor, no rashes or lesions noted. Course - Re-evaluation Re-evalutation: 12/12/17 06:24 52-year-old female with diabetes, hypertension, chronic pain, congestive heart failure, hyperlipidemia presents with complaint of cough, right ear pain, sore throat. Patient was seen by myself upon arrival. Vital signs were reviewed. Patient is afebrile, normotensive and not hypoxic. Patient does not appear toxic or dehydrated. They are in no acute distress. Previous medical records and nursing notes reviewed. Significant findings include an erythematous and bulging right tympanic membrane.. Patient provided the opportunity to ask questions, and express concerns. Discharge instructions discussed. Patient is agreeable with discharge home. Return indications explained and discussed with the patient who displays understanding. Patient encouraged to return to the emergency department immediately with any concerns. - Vital Signs Vital signs: Temp Pulse Resp BP Pulse Ox 98.2 F 86 18 132/78 H 97 12/11/17 02:23 12/11/17 02:23 12/11/17 02:23 12/11/17 02:23 12/11/17 02:23 Discharge - Discharge Clinical Impression: Right acute otitis media Pharyngitis Qualifiers: Pharyngitis/tonsillitis etiology: unspecified etiology Qualified Code(s): J02.9 - Acute pharyngitis, unspecified URI (upper respiratory infection) Qualifiers: URI type: acute pharyngitis Pharyngitis/tonsillitis etiology: unspecified etiology Qualified Code(s): J02.9 - Acute pharyngitis, unspecified Condition: Good Disposition: HOME, SELF-CARE Instructions: Otitis Media ([facility]), Upper Respiratory Illness ([facility]), Viral Syndrome ([facility]) Additional Instructions: Follow up with your physician tomorrow for further care or return to the ED IMMEDIATELY if symptoms worsen or new concerns occur. If you cannot afford to follow up with your primary care physician a list of low cost clinics have been provided at the end of your discharge papers as well. Prescriptions: Tramadol HCl [Ultram 50 mg Tablet] 50 mg PO Q6HP PRN #8 tablet PRN Reason: Amox Tr/Potassium Clavulanate [Augmentin 875-125 Tablet] 1 tab PO BID 10 Days # 20 tablet Referrals: JONATHON RODRIGEZ MD [Primary Care Provider] - Follow up as needed
[2017-12-11 02:23] VITALS: BP 132/78
== END 2017-12-11 02:20 | disposition home or self-care (01) ==
LOC: ER 23:36
DX: J02.9 Acute pharyngitis, unspecified (principal); H66.91 Otitis media, unspecified, right ear; J06.9 Acute upper respiratory infection, unspecified; R53.81 Other malaise; I50.9 Heart failure, unspecified; I25.10 Atherosclerotic heart disease of native coronary artery without angina pectoris; E78.00 Pure hypercholesterolemia, unspecified; I11.0 Hypertensive heart disease with heart failure; E11.9 Type 2 diabetes mellitus without complications; Z87.442 Personal history of urinary calculi; Z90.49 Acquired absence of other specified parts of digestive tract
CPT/HCPCS: 99282; A9270 ×2

== ENCOUNTER 2018-04-16 17:06 | Emergency (ER) | payer MEDICARE, MEDICAID ==
[2018-04-16 17:16] VITALS: BP 158/107
--- NOTE | 2018-04-16 17:31 | ER Document Report ---
ED Skin Rash/Insect Bite/Abscs - General Chief Complaint: Insect Bite Stated Complaint: POSSIBLE SPIDER BITE Time Seen by Provider: 04/16/18 17:17 Mode of Arrival: Ambulatory Information source: Patient Notes: 52-year-old female presents to ED for complaint of a spot on her right inner ankle that she noted last night. She states that she thinks she got bit by something and this morning it had a burning stinging to it. She states she scrubbed a good with soap and water and put Neosporin on it last night and this morning it looked a little red. There is no signs or symptoms of any inflammation infection or any other concerns at this time. Patient is alert and oriented respirations regular and unlabored speaking in full sentences. Patient is afebrile. She states she called her primary doctor Dr. Young who told her since she was diabetic she needed to come and have that examined. TRAVEL OUTSIDE OF THE [place] IN LAST 30 DAYS: No - HPI Patient complains to provider of: Insect bite Onset: Yesterday Onset/Duration: Gradual Quality of pain: Burning Severity: Moderate Pain Level: 2 Skin Character: Erythema - Normal, Papules, Tenderness Quality of rash: Itchy Identify cause: Yes - insect bite Exacerbated by: Other - scratching Relieved by: Denies Similar symptoms previously: No Recently seen / treated by doctor: Yes - Related Data Allergies/Adverse Reactions: acetaminophen [Acetaminophen] Allergy (Severe, Verified 04/16/18 17:12) itching Shellfish * [Shellfish] Allergy (Severe, Verified 04/16/18 17:12) itch, rash Sulfa (Sulfonamide Antibiotics) Allergy (Severe, Verified 04/16/18 17:12) Hives Iodinated Contrast- Oral and IV Dye [IV Dye, Iodine Containing] Allergy ( Intermediate, Verified 04/16/18 17:12) rash, itching iodine [Iodine] Allergy (Intermediate, Verified 04/16/18 17:12) itch, rash Past Medical History - General Information source: Patient - Social History Smoking Status: Never Smoker Cigarette use (# per day): No Chew tobacco use (# tins/day): No Smoking Education Provided: No Frequency of alcohol use: None Drug Abuse: None Family History: Arthritis, CAD, DM, Hyperlipidemia, Hypertension, Malignancy, Thyroid Disfunction, Other - kidney disease Patient has suicidal ideation: No Patient has homicidal ideation: No - Past Medical History Cardiac Medical History: Reports: Hx Congestive Heart Failure, Hx Coronary Artery Disease, Hx Hypercholesterolemia, Hx Hypertension Pulmonary Medical History: Reports: Hx Asthma EENT Medical History: Reports: None Neurological Medical History: Reports: Hx Migraine Endocrine Medical History: Reports: Hx Diabetes Mellitus Type 2 Renal/ Medical History: Reports: Hx Kidney Stones, Other - 3 renal failure Malignancy Medical History: Reports: None GI Medical History: Reports: None Musculoskeletal Medical History: Reports Hx Arthritis, Reports Hx Musculoskeletal Deformity, Reports Hx Musculoskeletal Trauma Skin Medical History: Reports None Psychiatric Medical History: Reports: Hx Depression Traumatic Medical History: Reports: None Infectious Medical History: Reports: None Past Surgical History: Reports: Hx Adenoidectomy, Hx Cardiac Catheterization, Hx Cholecystectomy, Hx Coronary Stent - x4 in 2009 according to the patient, Hx Hysterectomy, Hx Tonsillectomy, Hx Tubal Ligation - Immunizations Immunizations up to date: Yes Hx Diphtheria, Pertussis, Tetanus Vaccination: Yes Review of Systems - Review of Systems Constitutional: No symptoms reported EENT: No symptoms reported Cardiovascular: No symptoms reported Respiratory: No symptoms reported Gastrointestinal: No symptoms reported Genitourinary: No symptoms reported Female Genitourinary: No symptoms reported Musculoskeletal: No symptoms reported Skin: Other - Bite to right inner thigh Hematologic/Lymphatic: No symptoms reported Neurological/Psychological: No symptoms reported -: Yes All other systems reviewed and negative Physical Exam - Vital signs Vitals: Temp Pulse Resp BP Pulse Ox 98.4 F 71 16 158/107 H 98 04/16/18 17:15 04/16/18 17:15 04/16/18 17:15 04/16/18 17:15 04/16/18 17:15 Interpretation: Normal - General General appearance: Appears well, Alert - HEENT Head: Normocephalic, Atraumatic Eyes: Normal Pupils: PERRL - Respiratory Respiratory status: No respiratory distress Chest status: Nontender Breath sounds: Normal Chest palpation: Normal - Cardiovascular Rhythm: Regular Heart sounds: Normal auscultation Murmur: No - Abdominal Inspection: Normal Distension: No distension Bowel sounds: Normal Tenderness: Nontender Organomegaly: No organomegaly - Back Back: Normal, Nontender - Extremities General upper extremity: Normal inspection, Nontender, Normal color, Normal ROM , Normal temperature General lower extremity: Normal inspection, Nontender, Normal color, Normal ROM , Normal temperature, Normal weight bearing. No: Roe's sign - Neurological Neuro grossly intact: Yes Cognition: Normal Orientation: AAOx4 [place] Coma Scale Eye Opening: Spontaneous Lazarus Coma Scale Verbal: Oriented [place] Coma Scale Motor: Obeys Commands Lazarus Coma Scale Total: 15 Speech: Normal Motor strength normal: LUE, RUE, LLE, RLE Sensory: Normal - Psychological Associated symptoms: Normal affect, Normal mood - Skin Skin Temperature: Warm Skin Moisture: Dry Skin Color: Normal Irregularity with: Tenderness - Insect bite to right inner thigh no signs or symptoms of infection or inflammation Course - Re-evaluation Re-evalutation: 04/16/18 17:35 Insect bite cleaned with soap and water bacitracin applied. Patient was given instructions on use of surgical scrub water and bacitracin to the area. Patient to follow-up with primary doctor for any redness inflammation or drainage. - Vital Signs Vital signs: Temp Pulse Resp BP Pulse Ox 98.4 F 71 16 158/107 H 98 04/16/18 17:15 04/16/18 17:15 04/16/18 17:15 04/16/18 17:15 04/16/18 17:15 Discharge - Discharge Clinical Impression: Insect bite of right ankle Qualifiers: Encounter type: initial encounter Qualified Code(s): S90.561A - Insect bite ( nonvenomous), right ankle, initial encounter; W57.XXXA - Bitten or stung by nonvenomous insect and other nonvenomous arthropods, initial encounter; W57.XXXA - Bitten or stung by nonvenomous insect and other nonvenomous arthropods, initial encounter Condition: Stable Disposition: HOME, SELF-CARE Additional Instructions: Insect Bites You have been bitten by an insect. These bites can cause two types of swelling: an initial swelling due to insect saliva or injected poison, and a late reaction due to your body's allergic reaction. This initial local reaction may be uncomfortable but is not dangerous. Often there's an itchy "hive" at the bite location. This is treated with antihistamines, cold compresses, and resting the affected body part. The later reaction often develops about the second day. The entire area becomes very swollen, red, itchy, and tender. This is an allergic reaction. Your body is attacking the leftover insect saliva or venom. This type of allergy is unpleasant, but not dangerous. We treat this swelling with cortisone -type medicine. Sometimes we use antibiotics if we're worried about infection. Antihistamines help with the itch. If you develop a fever, chills, a red streak, or swollen glands in the area of the bite, infection may be starting. Return at once. USE OF DIPHENHYDRAMINE: The use of diphenhydramine (Benadryl) has been recommended to control allergic symptoms. The 25 mg strength is available over- the-counter, as well as the elixir. This antihistamine is used for many symptoms. It's useful for itching, watering eyes and nose, allergic swelling, hives, and insect stings. The medication can be repeated four times daily. Age Elixir (12.5 mg/tsp) 25 mg pill 2-3 yr 1/2 tsp 4-8 yr 1 tsp 9-14 yr 2 tsp one tab adult 1-2 tabs Antihistamines may cause drowsiness, especially with the first dose. Do not operate machinery or drive while under the effects of the medication. Do not combine the medication with alcohol, or with any other medication without talking to your doctor. SOAP CLEANSING: Gently wash the wound daily using a mild soap (like Ivory, Phisoderm, Neutrogena). Use warm water, rubbing gently until all debris, ooze, and crusting have been washed from the wound. Allow to dry briefly (about 10 minutes) after cleaning. Repeat this cleansing at least three times a day for the first two days and then once or twice a day. ANTIBIOTIC OINTMENT PROTECTION: Your wounds are such that dressing them is not practical or optional. After cleansing, you should apply a thin coating of antibiotic ointment ( Bacitracin, not Neosporin) to the wounds at least three times daily. This lessens infection risk, and may decrease the amount of scarring. Use a q-tip or dull butter knife, not your finger, to apply this ointment. Any debris or ooze which builds up in the ointment should be gently rubbed off with a sterile gauze pad. Harder crusting may need to be gently scrubbed off with a clean wash cloth with soap and warm water, perhaps applying a warm, wet wash cloth to the wound for ten minutes first. Development of redness, severe itching, or blistering may mean allergy to the ointment. See the doctor. FOLLOW-UP CARE: If you have been referred to a physician for follow-up care, call the physician s office for an appointment as you were instructed or within the next two days. If you experience worsening or a significant change in your symptoms, notify the physician immediately or return to the Emergency Department at any time for re-evaluation. Forms: Elevated Blood Pressure Referrals: JONATHON RODRIGEZ MD [Primary Care Provider] - Follow up as needed
== END 2018-04-16 17:47 | disposition home or self-care (01) ==
LOC: ER 17:06
DX: S90.561A Insect bite (nonvenomous), right ankle, initial encounter (principal); W57.XXXA Bitten or stung by nonvenomous insect and other nonvenomous arthropods, initial encounter; I50.9 Heart failure, unspecified; I25.10 Atherosclerotic heart disease of native coronary artery without angina pectoris; E78.00 Pure hypercholesterolemia, unspecified; I11.0 Hypertensive heart disease with heart failure; E11.9 Type 2 diabetes mellitus without complications; Z87.442 Personal history of urinary calculi; Z90.49 Acquired absence of other specified parts of digestive tract; Z90.710 Acquired absence of both cervix and uterus; Z88.2 Allergy status to sulfonamides; Z88.6 Allergy status to analgesic agent
CPT/HCPCS: 99281

== ENCOUNTER 2018-05-10 16:33 | Emergency (ER) | payer MEDICARE, MEDICAID ==
--- NOTE | 2018-05-10 17:39 | ER Document Report ---
ED Flu Like - General Chief Complaint: Flu Symptoms Stated Complaint: FLU SYMPTOMS Time Seen by Provider: 05/10/18 17:20 Mode of Arrival: Ambulatory Information source: Patient Notes: 52-year-old female presented to ED for cough cold congestion states she feels like she had a fever yesterday but did not take her temperature. She states she has had hot and cold flashes. Has been coughing. States that the cough does cause her to have some pain in her chest but does not have pain anytime except for when she is coughing. Is regular nonlabored speaking with full sentences. She states she does not smoke, frequently drink, or do any kind of drugs. TRAVEL OUTSIDE OF THE [place] IN LAST 30 DAYS: No - HPI Onset: Yesterday Timing/Duration: Intermittent - With cough Quality of pain: Sharp - With cough Severity: Moderate Pain Level: 4 CO exposure: No Associated symptoms: Body/muscle aches, Chest pain, Chills, Nonproductive cough - Call, Rhinnorhea, Sinus pain/drainage Similar symptoms previously: Yes Recently seen / treated by doctor: No - Related Data Allergies/Adverse Reactions: acetaminophen [Acetaminophen] Allergy (Severe, Verified 04/16/18 17:12) itching Shellfish * [Shellfish] Allergy (Severe, Verified 04/16/18 17:12) itch, rash Sulfa (Sulfonamide Antibiotics) Allergy (Severe, Verified 04/16/18 17:12) Hives Iodinated Contrast- Oral and IV Dye [IV Dye, Iodine Containing] Allergy ( Intermediate, Verified 04/16/18 17:12) rash, itching iodine [Iodine] Allergy (Intermediate, Verified 04/16/18 17:12) itch, rash Past Medical History - General Information source: Patient - Social History Smoking Status: Never Smoker Cigarette use (# per day): No Chew tobacco use (# tins/day): No Smoking Education Provided: No Frequency of alcohol use: Rare Drug Abuse: None Occupation: no Lives with: Family Family History: Arthritis, CAD, DM, Hyperlipidemia, Hypertension, Malignancy, Thyroid Disfunction, Other - kidney disease Patient has suicidal ideation: No Patient has homicidal ideation: No - Past Medical History Cardiac Medical History: Reports: Hx Congestive Heart Failure, Hx Coronary Artery Disease, Hx Hypercholesterolemia, Hx Hypertension Pulmonary Medical History: Reports: Hx Asthma EENT Medical History: Reports: None Neurological Medical History: Reports: Hx Migraine Endocrine Medical History: Reports: Hx Diabetes Mellitus Type 2 Renal/ Medical History: Reports: Hx Kidney Stones Malignancy Medical History: Reports: None GI Medical History: Reports: None Musculoskeletal Medical History: Reports Hx Arthritis, Reports Hx Musculoskeletal Deformity, Reports Hx Musculoskeletal Trauma Skin Medical History: Reports None Psychiatric Medical History: Reports: Hx Depression Traumatic Medical History: Reports: None Infectious Medical History: Reports: None Past Surgical History: Reports: Hx Adenoidectomy, Hx Cardiac Catheterization, Hx Cholecystectomy, Hx Coronary Stent - x4 in 2009 according to the patient, Hx Hysterectomy, Hx Tonsillectomy, Hx Tubal Ligation - Immunizations Immunizations up to date: Yes Hx Diphtheria, Pertussis, Tetanus Vaccination: Yes Review of Systems - Review of Systems Constitutional: No symptoms reported EENT: No symptoms reported Cardiovascular: No symptoms reported Respiratory: No symptoms reported Gastrointestinal: No symptoms reported Genitourinary: No symptoms reported Female Genitourinary: No symptoms reported Musculoskeletal: No symptoms reported Skin: No symptoms reported Hematologic/Lymphatic: No symptoms reported Neurological/Psychological: No symptoms reported -: Yes All other systems reviewed and negative Physical Exam - Vital signs Vitals: Temp Pulse Resp BP Pulse Ox 98.2 F 62 18 134/84 H 97 05/10/18 16:42 05/10/18 16:42 05/10/18 16:42 05/10/18 16:42 05/10/18 16:42 Interpretation: Normal - General General appearance: Appears well, Alert - HEENT Head: Normocephalic, Atraumatic Eyes: Normal Pupils: PERRL Ears: Normal External canal: Normal Tympanic membrane: Normal Sinus: Normal Nasal: Purulent discharge, Swelling Mouth/Lips: Normal Mucous membranes: Normal Pharynx: Post nasal drainage Neck: Normal - Respiratory Respiratory status: No respiratory distress Chest status: Nontender, Pain with cough. No: Tender Breath sounds: Normal Chest palpation: Normal - Cardiovascular Rhythm: Regular Heart sounds: Normal auscultation Murmur: No - Abdominal Inspection: Normal Distension: No distension Bowel sounds: Normal Tenderness: Nontender Organomegaly: No organomegaly - Back Back: Normal, Nontender - Extremities General upper extremity: Normal inspection, Nontender, Normal color, Normal ROM , Normal temperature General lower extremity: Normal inspection, Nontender, Normal color, Normal ROM , Normal temperature, Normal weight bearing. No: Roe's sign - Neurological Neuro grossly intact: Yes Cognition: Normal Orientation: AAOx4 Lazarus Coma Scale Eye Opening: Spontaneous [place] Coma Scale Verbal: Oriented Lazarus Coma Scale Motor: Obeys Commands Lazarus Coma Scale Total: 15 Speech: Normal Motor strength normal: LUE, RUE, LLE, RLE Sensory: Normal - Psychological Associated symptoms: Normal affect, Normal mood - Skin Skin Temperature: Warm Skin Moisture: Dry Skin Color: Normal Course - Re-evaluation Re-evalutation: 05/11/18 01:43 After performing a Medical Screening Examination, I estimate there is LOW risk for ACUTE CORONARY SYNDROME, RESPIRATORY FAILURE, SEPSIS OR MENINGITIS, thus I consider the discharge disposition reasonable. I have reevaluated this patient multiple times and no significant life threatening changes are noted. The patient and I have discussed the diagnosis and risks, and we agree with discharging home with close follow-up. We also discussed returning to the Emergency Department immediately if new or worsening symptoms occur. We have discussed the symptoms which are most concerning (e.g., changing or worsening pain, trouble swallowing or breathing, neck stiffness, fever) that necessitate immediate return. - Vital Signs Vital signs: Temp Pulse Resp BP Pulse Ox 98.1 F 63 16 135/86 H 96 05/10/18 18:51 05/10/18 18:51 05/10/18 18:51 05/10/18 18:51 05/10/18 18:51 - Diagnostic Test Radiology reviewed: Image reviewed, Reports reviewed Discharge - Discharge Clinical Impression: URI (upper respiratory infection) Qualifiers: URI type: unspecified URI Qualified Code(s): J06.9 - Acute upper respiratory infection, unspecified Condition: Stable Disposition: HOME, SELF-CARE Additional Instructions: UPPER RESPIRATORY ILLNESS: You have a viral infection of the respiratory passages -- a "cold." This common infection causes nasal congestion, drainage, and often sore throat and cough. It is highly contagious. The disease usually lasts about 10 to 14 days. There is no "cure" for the viral infection -- it must run its course. If there is a complication, such as bacterial infection in the nose, sinuses, middle ear, or bronchial tubes, antibiotics may be required. The antibiotics won't affect the virus. Drink plenty of fluids. A humidifier may help. An expectorant medication or decongestant may make you more comfortable. Use acetaminophen or ibuprofen for fever or aches. See the doctor if fever persists over two days, if there is any significant worsening of your symptoms, or if you simply fail to improve as expected. You can use Flonase nasal spray, salt and soda gargles, and saline spray to your nose for your cough cold congestion symptoms. Follow-up with your primary doctor tomorrow. Salt and soda solution 1 quart of water 1 tablespoon of salt 1 teaspoon of baking soda Mixed 3 ingredients together and boil for 1 minute Placed in a covered quart jar Use 1/2 ounce of cold solution to gargle 3 times a day FOLLOW-UP CARE: If you have been referred to a physician for follow-up care, call the physician s office for an appointment as you were instructed or within the next two days. If you experience worsening or a significant change in your symptoms, notify the physician immediately or return to the Emergency Department at any time for re-evaluation. Forms: Elevated Blood Pressure Referrals: JONATHON RODRIGEZ MD [Primary Care Provider] - Follow up tomorrow
--- NOTE | 2018-05-10 18:25 | RADIOLOGY REPORT (SQ) ---
EXAM DESCRIPTION: CHEST 2 VIEWS COMPLETED DATE/TIME: 05/10/2018 6:00 pm REASON FOR STUDY: cough congestion COMPARISON: None. EXAM PARAMETERS: NUMBER OF VIEWS: two views TECHNIQUE: Digital Frontal and Lateral radiographic views of the chest acquired. RADIATION DOSE: NA LIMITATIONS: none FINDINGS: LUNGS AND PLEURA: No opacities, masses or pneumothorax. No pleural effusion. MEDIASTINUM AND HILAR STRUCTURES: No masses or contour abnormalities. HEART AND VASCULAR STRUCTURES: Heart normal size. No evidence for failure. BONES: No acute findings. HARDWARE: None in the chest. OTHER: No other significant finding. IMPRESSION: NO ACUTE RADIOGRAPHIC FINDING IN THE CHEST. TECHNICAL DOCUMENTATION: JOB ID: [id number] [employer]- All Rights Reserved Reading location - IP/workstation name: [email or web address]
[2018-05-10 18:52] VITALS: BP 135/86
== END 2018-05-10 18:52 | disposition home or self-care (01) ==
LOC: ER 16:33
DX: J06.9 Acute upper respiratory infection, unspecified (principal); R05 Cough; R07.89 Other chest pain; J34.89 Other specified disorders of nose and nasal sinuses; R68.83 Chills (without fever); R09.82 Postnasal drip; I25.10 Atherosclerotic heart disease of native coronary artery without angina pectoris; I10 Essential (primary) hypertension; J45.909 Unspecified asthma, uncomplicated; E11.9 Type 2 diabetes mellitus without complications; Z88.6 Allergy status to analgesic agent; Z91.013 Allergy to seafood; Z88.2 Allergy status to sulfonamides; Z91.041 Radiographic dye allergy status; Z95.5 Presence of coronary angioplasty implant and graft
CPT/HCPCS: 71046; 99283

== ENCOUNTER → 2019-02-06 | Outpatient (CLI) | payer MEDICARE, MEDICAID ==
[2019-02-06 11:47] LABS: ANION GAP 10 (5-19); BLOOD UREA NITROGEN 25 mg/dL (7-20); CALCIUM 9.6 mg/dL (8.4-10.2); CARBON DIOXIDE 25 mmol/L (22-30); CHLORIDE 107 mmol/L (98-107); GLUCOSE 111 mg/dL (75-110); PHOSPHORUS 3.9 mg/dL (2.5-4.5); POTASSIUM 3.7 mmol/L (3.6-5.0)
[2019-02-06 11:48] LABS: UR PRO/CREAT RATIO RESULT 1.1 mg/mg (0.0-0.2); URINE CREATININE 112.7 mg/dL (15-278); URINE PROTEIN 125.8 mg/dL (<12)
== END ==
LOC: OD 10:55
PROVIDERS: ATTEND Internal Medicine Nephrology
DX: G47.33 Obstructive sleep apnea (adult) (pediatric) (principal)
CPT/HCPCS: 36415; 80048; 82570; 83970; 84100; 84156

== ENCOUNTER 2019-04-09 21:08 | Emergency (ER) | payer MEDICARE, MEDICAID ==
[2019-04-09 22:41] LABS: ABSOLUTE EOSINOPHILS # (AUTO) 0.2 10^3/uL (0.0-0.6); ABSOLUTE LYMPHOCYTES (AUTO) 2.4 10^3/uL (0.5-4.7); ABSOLUTE MONOCYTES (AUTO) 0.6 10^3/uL (0.1-1.4); ABSOLUTE NEUT (AUTO) 6.7 10^3/uL (1.7-8.2); BASOPHILS % (AUTO) 0.3 % (0-2); HEMATOCRIT 37.5 % (36.0-47.0); HEMOGLOBIN 12.5 g/dL (12.0-15.5); LYMPHOCYTES % (AUTO) 24.2 % (13-45); MEAN CORPUSCULAR HEMOGLOBIN 28.9 pg (27.0-33.4); MEAN CORPUSCULAR HGB CONC 33.2 g/dL (32.0-36.0); MEAN CORPUSCULAR VOLUME 87 fl (80-97); PLATELET COUNT 212 10^3/uL (150-450); RED BLOOD COUNT 4.32 10^6/uL (3.72-5.28); RED CELL DISTRIBUTION WIDTH 15.1 % (11.5-14.0); SEGMENTED NEUTROPHILS % (AUTO) 67.5 % (42-78); TOTAL CELLS COUNTED % (AUTO) 100 %
[2019-04-09 22:47] LABS: APPEARANCE,URINE SLIGHTLY-CLOUDY; BILIRUBIN,URINE NEGATIVE (NEGATIVE); COLOR,URINE YELLOW; GLUCOSE, URINE NEGATIVE (NEGATIVE); KETONES,URINE NEGATIVE (NEGATIVE); LEUKOCYTE ESTERASE,URINE NEGATIVE (NEGATIVE); NITRITE,URINE NEGATIVE (NEGATIVE); PROTEIN,URINE 100 mg/dL (NEGATIVE); URINE SPECIFIC GRAVITY 1.016; UROBILINOGEN,URINE NEGATIVE mg/dL (<2.0)
[2019-04-09 22:54] LABS: ALKALINE PHOSPHATASE 75 U/L (38-126); ANION GAP 7 (5-19); ASPARTATE AMINO TRANSFERASE 18 U/L (14-36); BILIRUBIN,DIRECT 0.1 mg/dL (0.0-0.4); BILIRUBIN,TOTAL 0.4 mg/dL (0.2-1.3); BLOOD UREA NITROGEN 27 mg/dL (7-20); CALCIUM 9.7 mg/dL (8.4-10.2); CARBON DIOXIDE 26 mmol/L (22-30); CHLORIDE 107 mmol/L (98-107); GLUCOSE 100 mg/dL (75-110); POTASSIUM 3.8 mmol/L (3.6-5.0); TOTAL PROTEIN 6.7 g/dL (6.3-8.2)
[2019-04-09] MEDS ORDERED: ASPIRIN 81 MG TABLET, CHEWABLE PO ONE (23:15)
--- NOTE | 2019-04-09 23:18 | ER Document Report ---
ED Medical Screen (RME) - General Chief Complaint: Shoulder Pain Stated Complaint: LEFT ARM PAIN,HIGH BLOOD PRESSURE Time Seen by Provider: 04/09/19 23:10 Primary Care Provider: WENDY STERLING MD [Primary Care Provider] - Follow up as needed Notes: Patient is a 53-year-old female presents to the emergency department for multiple complaints. Initially states her left shoulder hurts. States she was sitting around "doing nothing" when she all of a sudden started with sharp left shoulder pain. States pain increases when she moves her left shoulder. Patient voices she also has generalized chest pain. States she is unsure of when the chest pain started. Patient then voices her niece recently from a "massive heart attack" so she would like "everything checked out." GENERAL: Alert, interacts well. No acute distress. LUNGS: Clear to auscultation bilaterally, no wheezes, rales, or rhonchi. No respiratory distress. I have greeted and performed a rapid initial assessment of this patient. A comprehensive ED assessment and evaluation of the patient, analysis of test results and completion of the medical decision making process will be conducted by additional ED providers. I have specifically instructed the patient or family members with the patient to immediately return to any nursing staff should anything change in the patient's condition or with their chief complaint. This medical record was dictated with voice recognizing software. There may be grammatical, syntax errors that are unintended. TRAVEL OUTSIDE OF THE [place] IN LAST 30 DAYS: No - Related Data Allergies/Adverse Reactions: acetaminophen [Acetaminophen] Allergy (Severe, Verified 04/09/19 23:08) itching Shellfish * [Shellfish] Allergy (Severe, Verified 04/09/19 23:08) itch, rash Sulfa (Sulfonamide Antibiotics) Allergy (Severe, Verified 04/09/19 23:08) Hives Iodinated Contrast Media [IV Dye, Iodine Containing] Allergy (Intermediate, Verified 04/09/19 23:08) rash, itching iodine [Iodine] Allergy (Intermediate, Verified 04/09/19 23:08) itch, rash Past Medical History - Past Medical History Cardiac Medical History: Reports: Hx Congestive Heart Failure, Hx Coronary Art loulou Disease, Hx Hypercholesterolemia, Hx Hypertension Denies: Hx Heart Attack Pulmonary Medical History: Reports: Hx Asthma Neurological Medical History: Reports: Hx Migraine Endocrine Medical History: Reports: Hx Diabetes Mellitus Type 2 Renal/ Medical History: Reports: Hx Kidney Stones. Denies: Hx Peritoneal Dialysis Musculoskeltal Medical History: Reports Hx Arthritis, Reports Hx Musculoskeletal Deformity, Reports Hx Musculoskeletal Trauma Psychiatric Medical History: Reports: Hx Depression Past Surgical History: Reports: Hx Adenoidectomy, Hx Cardiac Catheterization, Hx Cholecystectomy, Hx Coronary Stent - x4 in 2009 according to the patient, Hx Hysterectomy, Hx Tonsillectomy, Hx Tubal Ligation - Immunizations Immunizations up to date: Yes Hx Diphtheria, Pertussis, Tetanus Vaccination: Yes Physical Exam - Vital signs Vitals: Temp Pulse Resp BP Pulse Ox 98.5 F 69 16 148/106 H 97 04/09/19 21:30 04/09/19 21:30 04/09/19 21:30 04/09/19 21:30 04/09/19 21:30 Course - Vital Signs Vital signs: Temp Pulse Resp BP Pulse Ox 98.5 F 69 16 148/106 H 97 04/09/19 21:30 04/09/19 21:30 04/09/19 21:30 04/09/19 21:30 04/09/19 21:30 - Laboratory Result Diagrams: 04/09/19 22:10 04/09/19 22:10 Laboratory results interpreted by me: 04/09/19 04/09/19 04/09/19 22:10 22:10 22:10 RDW 15.1 H BUN 27 H Creatinine 1.92 H Est GFR ( Amer) 33 L Est GFR (MDRD) Non-Af 27 L Urine Protein 100 H Doctor's Discharge - Discharge Referrals: WENDY STERLING MD [Primary Care Provider] - Follow up as needed
[2019-04-09 23:52] LABS: CREATINE KINASE MB 0.49 ng/mL (<4.55)
--- NOTE | 2019-04-09 23:53 | RADIOLOGY REPORT (SQ) ---
EXAM DESCRIPTION: XR SHOULDER 2 OR MORE VIEWS COMPLETED DATE/TME: 04/09/2019 23:16 CLINICAL HISTORY: 53 years, Female, pain COMPARISON: Prior chest radiograph from 05/02/2018 NUMBER OF VIEWS: Three TECHNIQUE: Internal/external and transscapular Y projections were acquired LIMITATIONS: None. FINDINGS: Visualized osseous structures are normal in appearance. Joint spaces are well-maintained. No acute fracture or dislocation is evident. IMPRESSION: No acute osseous anomaly. copyright 2010 [employer]- All Rights Reserved
[2019-04-09 23:54] LABS: TROPONIN I < 0.012 ng/mL
--- NOTE | 2019-04-09 23:56 | RADIOLOGY REPORT (SQ) ---
EXAM DESCRIPTION: [employer]: XR CHEST 1 VIEW CLINICAL HISTORY: 53 years Female, CP COMPARISON: 11/08/2017. FINDINGS: Lungs are clear, with no focal infiltrate, pneumothorax, or pleural effusion. Mediastinum is within normal limits for this positioning. Bony structures are unremarkable. IMPRESSION: 1. No acute pulmonary findings.
[2019-04-10] MEDS ORDERED: TRAMADOL HCL 50 MG TABLET PO ONE (03:29)
--- NOTE | 2019-04-10 03:35 | ER Document Report ---
ED Extremity Problem, Upper - General Chief Complaint: Shoulder Pain Stated Complaint: LEFT ARM PAIN,HIGH BLOOD PRESSURE Time Seen by Provider: 04/09/19 23:10 Primary Care Provider: WENDY STERLING MD [NO LOCAL MD] - Follow up as needed TRAVEL OUTSIDE OF THE [place] IN LAST 30 DAYS: No - HPI Notes: This is a 53-year-old female who presents today with a complaint of left anish ulder pain all the. Patient states it hurts to lift up her shoulder. Pain goes to her upper chest wall/clavicle area. She denies any trauma. He describes his symptoms as moderate. Pain is worse with abduction of the left arm. - Related Data Allergies/Adverse Reactions: acetaminophen [Acetaminophen] Allergy (Severe, Verified 04/09/19 23:08) itching Shellfish * [Shellfish] Allergy (Severe, Verified 04/09/19 23:08) itch, rash Sulfa (Sulfonamide Antibiotics) Allergy (Severe, Verified 04/09/19 23:08) Hives Iodinated Contrast Media [IV Dye, Iodine Containing] Allergy (Intermediate, Verified 04/09/19 23:08) rash, itching iodine [Iodine] Allergy (Intermediate, Verified 04/09/19 23:08) itch, rash Past Medical History - Social History Smoking Status: Unknown if Ever Smoked Family History: Arthritis, CAD, DM, Hyperlipidemia, Hypertension, Malignancy, Thyroid Disfunction, Other - kidney disease Patient has suicidal ideation: No Patient has homicidal ideation: No - Past Medical History Cardiac Medical History: Reports: Hx Congestive Heart Failure, Hx Coronary Artery Disease, Hx Hypercholesterolemia, Hx Hypertension Denies: Hx Heart Attack Pulmonary Medical History: Reports: Hx Asthma Neurological Medical History: Reports: Hx Migraine Endocrine Medical History: Reports: Hx Diabetes Mellitus Type 2 Renal/ Medical History: Reports: Hx Kidney Stones. Denies: Hx Peritoneal Dialysis Musculoskeletal Medical History: Reports Hx Arthritis, Reports Hx Musculoskeletal Deformity, Reports Hx Musculoskeletal Trauma Psychiatric Medical History: Reports: Hx Depression Past Surgical History: Reports: Hx Adenoidectomy, Hx Cardiac Catheterization, Hx Cholecystectomy, Hx Coronary Stent - x4 in 2009 according to the patient, Hx Hysterectomy, Hx Tonsillectomy, Hx Tubal Ligation - Immunizations Immunizations up to date: Yes Hx Diphtheria, Pertussis, Tetanus Vaccination: Yes Review of Systems - Review of Systems Cardiovascular: denies: Chest pain Respiratory: denies: Cough, Short of breath Gastrointestinal: denies: Abdominal pain Musculoskeletal: Joint pain - Left shoulder pain Neurological/Psychological: denies: Weakness, Headaches -: Yes All other systems reviewed and negative Physical Exam - Vital signs Vitals: Temp Pulse Resp BP Pulse Ox 98.5 F 69 16 148/106 H 97 04/09/19 21:30 04/09/19 21:30 04/09/19 21:30 04/09/19 21:30 04/09/19 21:30 - General General appearance: Appears well, Alert - Respiratory Respiratory status: No respiratory distress Chest status: Tender - There is tenderness in the left upper chest wall/clavicle area. There is also tenderness of the left shoulder. Breath sounds: Normal Chest palpation: Normal - Cardiovascular Rhythm: Regular Heart sounds: Normal auscultation Murmur: No - Abdominal Inspection: Normal Distension: No distension Bowel sounds: Normal Tenderness: Nontender Organomegaly: No organomegaly - Extremities General upper extremity: Normal inspection, Normal color, Normal temperature General lower extremity: Normal inspection, Nontender, Normal color, Normal ROM, Normal temperature. No: Roe's sign Shoulder: Tender - There is tenderness of the left anterolateral shoulder. There is pain with abduction of the left upper extremity. Normal distal neurovascular exam of the left upper extremity.. No: Deformity, Dislocation - Neurological Neuro grossly intact: Yes Cognition: Normal Orientation: AAOx4 [place] Coma Scale Eye Opening: Spontaneous [place] Coma Scale Verbal: Oriented [place] Coma Scale Motor: Obeys Commands [place] Coma Scale Total: 15 Speech: Normal Motor strength normal: LUE, RUE, LLE, RLE Sensory: Normal Course - Re-evaluation Re-evalutation: 04/10/19 03:37 Differential diagnosis includes shoulder strain versus occult fracture versus rotator cuff injury. There is no clinical suspicion for acute coronary syndrome with reproducible shoulder pain greater than 6 to 12 hours. Troponin ordered in triage. 04/10/19 03:42 Patient refused to have EKG done. 04:10 Patient is doing well. She is stable for discharge. Follow-up discussed. - Vital Signs Vital signs: Temp Pulse Resp BP Pulse Ox 98.5 F 69 16 148/106 H 97 04/09/19 21:30 04/09/19 21:30 04/09/19 21:30 04/09/19 21:30 04/09/19 21:30 - Laboratory Result Diagrams: 04/09/19 22:10 04/09/19 22:10 Laboratory results interpreted by me: 04/09/19 04/09/19 04/09/19 22:10 22:10 22:10 RDW 15.1 H BUN 27 H Creatinine 1.92 H Est GFR ( Amer) 33 L Est GFR (MDRD) Non-Af 27 L Urine Protein 100 H Discharge - Discharge Clinical Impression: Left shoulder strain Qualifiers: Encounter type: initial encounter Qualified Code(s): S46.912A - Strain of unspecified muscle, fascia and tendon at shoulder and upper arm level, left arm, initial encounter Condition: Stable Disposition: HOME, SELF-CARE Instructions: Shoulder Injury ([facility]) Prescriptions: Naproxen 500 mg PO BID PRN #14 tablet PRN Reason: Referrals: WENDY STERLING MD [NO LOCAL MD] - Follow up as needed
[2019-04-10 04:25] VITALS: BP 176/127
== END 2019-04-10 04:31 | disposition home or self-care (01) ==
LOC: ER 21:08
DX: S46.912A Strain of unspecified muscle, fascia and tendon at shoulder and upper arm level, left arm, initial encounter (principal); X58.XXXA Exposure to other specified factors, initial encounter; I50.9 Heart failure, unspecified; I25.10 Atherosclerotic heart disease of native coronary artery without angina pectoris; E78.00 Pure hypercholesterolemia, unspecified; I11.0 Hypertensive heart disease with heart failure; E11.9 Type 2 diabetes mellitus without complications; Z88.6 Allergy status to analgesic agent; Z91.013 Allergy to seafood; Z87.442 Personal history of urinary calculi; Z90.49 Acquired absence of other specified parts of digestive tract
CPT/HCPCS: 36415; 71045; 80053; 81001; 82550; 82553; 84484; 85025; 99285

== ENCOUNTER → 2019-04-17 | Outpatient (CLI) | payer MEDICARE, MEDICAID ==
[2019-04-17 09:42] LABS: ABSOLUTE EOSINOPHILS # (AUTO) 0.3 10^3/uL (0.0-0.6); ABSOLUTE LYMPHOCYTES (AUTO) 1.9 10^3/uL (0.5-4.7); ABSOLUTE MONOCYTES (AUTO) 0.4 10^3/uL (0.1-1.4); ABSOLUTE NEUT (AUTO) 4.5 10^3/uL (1.7-8.2); BASOPHILS % (AUTO) 0.5 % (0-2); EOSINOPHILS % (AUTO) 3.7 % (0-6); HEMATOCRIT 35.8 % (36.0-47.0); HEMOGLOBIN 11.8 g/dL (12.0-15.5); MEAN CORPUSCULAR HEMOGLOBIN 28.5 pg (27.0-33.4); MEAN CORPUSCULAR VOLUME 86 fl (80-97); MONOCYTES % (AUTO) 5.4 % (3-13); PLATELET COUNT 228 10^3/uL (150-450); RED BLOOD COUNT 4.14 10^6/uL (3.72-5.28); RED CELL DISTRIBUTION WIDTH 14.7 % (11.5-14.0); SEGMENTED NEUTROPHILS % (AUTO) 63.4 % (42-78); TOTAL CELLS COUNTED % (AUTO) 100 %; WHITE BLOOD COUNT 7.1 10^3/uL (4.0-10.5)
[2019-04-17 10:18] LABS: ALBUMIN 3.8 g/dL (3.5-5.0); ALKALINE PHOSPHATASE 84 U/L (38-126); ANION GAP 9 (5-19); ASPARTATE AMINO TRANSFERASE 32 U/L (14-36); BILIRUBIN,DIRECT 0.1 mg/dL (0.0-0.4); BILIRUBIN,TOTAL 0.4 mg/dL (0.2-1.3); BLOOD UREA NITROGEN 22 mg/dL (7-20); CALCIUM 9.5 mg/dL (8.4-10.2); CARBON DIOXIDE 26 mmol/L (22-30); CHLORIDE 108 mmol/L (98-107); CHOLESTEROL 141.43 mg/dL (0-200); GLUCOSE 106 mg/dL (75-110); POTASSIUM 3.9 mmol/L (3.6-5.0); TOTAL PROTEIN 6.5 g/dL (6.3-8.2); TRIGLYCERIDES 80 mg/dL (<150)
[2019-04-17 10:25] LABS: FREE T4 (FREE THYROXINE) 1.22 ng/dL (0.78-2.19)
[2019-04-17 10:29] LABS: DIRECT LDL 66 mg/dL (<100)
[2019-04-17 10:38] LABS: THYROID STIMULATING HORMONE 1.82 uIU/mL (0.47-4.68)
[2019-04-17 11:05] LABS: ALBUMIN 3.8 g/dL (3.5-5.0); ANION GAP 9 (5-19); BLOOD UREA NITROGEN 22 mg/dL (7-20); CALCIUM 9.5 mg/dL (8.4-10.2); CARBON DIOXIDE 26 mmol/L (22-30); CHLORIDE 108 mmol/L (98-107); GLUCOSE 106 mg/dL (75-110); POTASSIUM 3.9 mmol/L (3.6-5.0)
[2019-04-17 12:07] LABS: PHOSPHORUS 4.1 mg/dL (2.5-4.5)
[2019-04-19 03:36] LABS: CREATININE URINE 71.7 mg/dL (Not Estab.); MICROALBUMIN URINE 364.6 ug/mL (Not Estab.)
== END ==
LOC: OD 08:16
PROVIDERS: ATTEND Internal Medicine Nephrology
DX: Z00.00 Encounter for general adult medical examination without abnormal findings (principal); E78.2 Mixed hyperlipidemia; E11.9 Type 2 diabetes mellitus without complications; E55.9 Vitamin D deficiency, unspecified; E66.01 Morbid (severe) obesity due to excess calories; I10 Essential (primary) hypertension; R80.9 Proteinuria, unspecified; R60.9 Edema, unspecified
CPT/HCPCS: 36415; 80053; 80061; 80069; 82043; 82306; 82570; 83036; 84439; 84443; 85025

== ENCOUNTER → 2019-05-14 | Outpatient (CLI) | payer MEDICARE, MEDICAID ==
[2019-05-14 14:35] LABS: URINE CREATININE 250.7 mg/dL (15-278)
[2019-05-14 14:39] LABS: ALBUMIN 4.3 g/dL (3.5-5.0); ANION GAP 10 (5-19); BLOOD UREA NITROGEN 29 mg/dL (7-20); CALCIUM 9.7 mg/dL (8.4-10.2); CARBON DIOXIDE 25 mmol/L (22-30); CHLORIDE 107 mmol/L (98-107); GLUCOSE 103 mg/dL (75-110); PHOSPHORUS 4.2 mg/dL (2.5-4.5)
[2019-05-14 14:45] LABS: URINE PROTEIN 341.7 mg/dL (<12)
== END ==
LOC: OD 13:25
PROVIDERS: ATTEND Internal Medicine Nephrology
DX: E11.9 Type 2 diabetes mellitus without complications (principal); R80.9 Proteinuria, unspecified; R60.9 Edema, unspecified
CPT/HCPCS: 36415; 80069; 82570; 83970; 84156

== ENCOUNTER 2019-08-11 21:33 | Emergency (ER) | payer MEDICARE, MEDICAID ==
--- NOTE | 2019-08-11 23:29 | ER Document Report ---
ED Medical Screen (RME) - General Chief Complaint: Diarrhea Stated Complaint: DIARRHEA,ABDOMINAL PAIN,VOMITING Time Seen by Provider: 08/11/19 23:19 Primary Care Provider: WENDY STERLING MD [Primary Care Provider] - Follow up as needed Notes: Patient is a 53-year-old female with a history of chronic kidney disease, type 2 diabetes, hypertension who presents the emergency department with a chief complaint of abdominal pain and diarrhea. Patient reports she developed abdominal pain today. She reports that this is worse in the right lower quadrant and does radiate at times to the right lower back and left lower quadrant. Patient reports she has been able to drink water all day without vomiting but when attempting to eat food she did throw up. Patient did take Pepto-Bismol without much relief. Patient reports she is also had 4 episodes of diarrhea today. Patient denies recent travel. Patient denies sick contacts. Patient denies fever. Patient reports there is no blood in her stool. Patient reports she does have a history of a cholecystectomy and a partial hysterectomy. TRAVEL OUTSIDE OF THE [place] IN LAST 30 DAYS: No - Related Data Allergies/Adverse Reactions: acetaminophen [Acetaminophen] Allergy (Severe, Verified 04/09/19 23:08) itching Shellfish * [Shellfish] Allergy (Severe, Verified 04/09/19 23:08) itch, rash Sulfa (Sulfonamide Antibiotics) Allergy (Severe, Verified 04/09/19 23:08) Hives Iodinated Contrast Media [IV Dye, Iodine Containing] Allergy (Intermediate, Verified 04/09/19 23:08) rash, itching iodine [Iodine] Allergy (Intermediate, Verified 04/09/19 23:08) itch, rash Past Medical History - Past Medical History Cardiac Medical History: Reports: Hx Congestive Heart Failure, Hx Coronary Artery Disease, Hx Hypercholesterolemia, Hx Hypertension Denies: Hx Heart Attack Pulmonary Medical History: Reports: Hx Asthma Neurological Medical History: Reports: Hx Migraine Endocrine Medical History: Reports: Hx Diabetes Mellitus Type 2 Renal/ Medical History: Reports: Hx Kidney Stones. Denies: Hx Peritoneal Dialysis Musculoskeltal Medical History: Reports Hx Arthritis, Reports Hx Musculoskeletal Deformity, Reports Hx Musculoskeletal Trauma Psychiatric Medical History: Reports: Hx Depression Past Surgical History: Reports: Hx Adenoidectomy, Hx Cardiac Catheterization, Hx Cholecystectomy, Hx Coronary Stent - x4 in 2009 according to the patient, Hx Hysterectomy, Hx Tonsillectomy, Hx Tubal Ligation - Immunizations Immunizations up to date: Yes Hx Diphtheria, Pertussis, Tetanus Vaccination: Yes Physical Exam - Vital signs Vitals: Temp Pulse Resp BP Pulse Ox 98.7 F 105 H 20 180/145 H 98 08/11/19 21:59 08/11/19 21:59 08/11/19 21:59 08/11/19 21:59 08/11/19 21:59 Course - Re-evaluation Re-evalutation: 08/11/19 23:28 Patient initial blood pressure was 180/145. Upon repeat vital signs in triage it was 188/124. Patient continues to complain of right lower quadrant pain that radiates into the right lower back and left lower quadrant. Patient is afebrile. Will obtain basic labs, urinalysis to start. I have greeted and performed a rapid initial assessment of this patient. A comprehensive ED assessment and evaluation of the patient, analysis of test results and completion of the medical decision making process will be conducted by additional ED providers. - Vital Signs Vital signs: Temp Pulse Resp BP Pulse Ox 98.8 F 101 H 17 188/124 H 100 08/11/19 23:18 08/11/19 23:18 08/11/19 23:18 08/11/19 23:18 08/11/19 23:18 Doctor's Discharge - Discharge Referrals: WENDY STERLING MD [Primary Care Provider] - Follow up as needed
[2019-08-12 01:06] LABS: ABSOLUTE BASOPHILS # (AUTO) 0.1 10^3/uL (0.0-0.2); ABSOLUTE EOSINOPHILS # (AUTO) 0.1 10^3/uL (0.0-0.6); ABSOLUTE LYMPHOCYTES (AUTO) 2.3 10^3/uL (0.5-4.7); ABSOLUTE MONOCYTES (AUTO) 0.5 10^3/uL (0.1-1.4); ABSOLUTE NEUT (AUTO) 7.6 10^3/uL (1.7-8.2); APPEARANCE,URINE CLOUDY; BASOPHILS % (AUTO) 1.4 % (0-2); BILIRUBIN,URINE NEGATIVE (NEGATIVE); COLOR,URINE YELLOW; EOSINOPHILS % (AUTO) 1.2 % (0-6); GLUCOSE, URINE NEGATIVE (NEGATIVE); HEMATOCRIT 41.4 % (36.0-47.0); HEMOGLOBIN 13.9 g/dL (12.0-15.5); KETONES,URINE TRACE mg/dL (NEGATIVE); LEUKOCYTE ESTERASE,URINE SMALL (NEGATIVE); LYMPHOCYTES % (AUTO) 21.5 % (13-45); MEAN CORPUSCULAR HEMOGLOBIN 28.9 pg (27.0-33.4); MEAN CORPUSCULAR HGB CONC 33.7 g/dL (32.0-36.0); MEAN CORPUSCULAR VOLUME 86 fl (80-97); MONOCYTES % (AUTO) 4.8 % (3-13); NITRITE,URINE NEGATIVE (NEGATIVE); PLATELET COUNT 247 10^3/uL (150-450); PROTEIN,URINE >=500 mg/dL (NEGATIVE); RED BLOOD COUNT 4.82 10^6/uL (3.72-5.28); RED CELL DISTRIBUTION WIDTH 14.9 % (11.5-14.0); SEGMENTED NEUTROPHILS % (AUTO) 71.1 % (42-78); TOTAL CELLS COUNTED % (AUTO) 100 %; URINE SPECIFIC GRAVITY 1.017; UROBILINOGEN,URINE NEGATIVE mg/dL (<2.0); WHITE BLOOD COUNT 10.7 10^3/uL (4.0-10.5)
[2019-08-12 01:41] LABS: ALBUMIN 4.5 g/dL (3.5-5.0); ALKALINE PHOSPHATASE 95 U/L (38-126); ANION GAP 10 (5-19); ASPARTATE AMINO TRANSFERASE 22 U/L (14-36); BILIRUBIN,DIRECT 0.1 mg/dL (0.0-0.4); BILIRUBIN,TOTAL 0.6 mg/dL (0.2-1.3); BLOOD UREA NITROGEN 20 mg/dL (7-20); CALCIUM 9.8 mg/dL (8.4-10.2); CARBON DIOXIDE 25 mmol/L (22-30); CHLORIDE 107 mmol/L (98-107); GLUCOSE 93 mg/dL (75-110); POTASSIUM 4.1 mmol/L (3.6-5.0); TOTAL PROTEIN 7.7 g/dL (6.3-8.2)
[2019-08-12] MEDS ORDERED: DICYCLOMINE HCL INJ 20 MG/2 ML AMPULE IM ONE (02:01)
[2019-08-12] MEDS ORDERED: NORMAL SALINE 500 ML IV ONE (02:43)
[2019-08-12] MEDS ORDERED: METOCLOPRAMIDE HCL INJ/PF 10 MG/2 ML SDV IV ONE (02:43)
[2019-08-12] MEDS ORDERED: LOPERAMIDE HCL 2 MG CAPSULE PO ONE (03:12)
--- NOTE | 2019-08-12 03:21 | ER Document Report ---
ED General - General Chief Complaint: Diarrhea Stated Complaint: DIARRHEA,ABDOMINAL PAIN,VOMITING Time Seen by Provider: 08/11/19 23:19 Primary Care Provider: WENDY STERLING MD [NO LOCAL MD] - Follow up tomorrow Notes: 53-year-old female with history of CKD, diabetes, hypertension presents with generalized abdominal cramping and diarrhea that started today. Patient states she also has nausea/vomiting. Patient states she is able to keep down fluids but is unable to keep down food. Patient denies any fever, chills, chest pain, shortness of breath. Patient denies any urinary symptoms. TRAVEL OUTSIDE OF THE [place] IN LAST 30 DAYS: No - Related Data Allergies/Adverse Reactions: acetaminophen [Acetaminophen] Allergy (Severe, Verified 08/12/19 07:45) itching Shellfish * [Shellfish] Allergy (Severe, Verified 08/12/19 07:45) itch, rash Sulfa (Sulfonamide Antibiotics) Allergy (Severe, Verified 08/12/19 07:45) Hives Iodinated Contrast Media [IV Dye, Iodine Containing] Allergy (Intermediate, Verified 08/12/19 07:45) rash, itching iodine [Iodine] Allergy (Intermediate, Verified 08/12/19 07:45) itch, rash Past Medical History - Social History Smoking Status: Never Smoker Family History: Arthritis, CAD, DM, Hyperlipidemia, Hypertension, Malignancy, Thyroid Disfunction, Other - kidney disease Patient has suicidal ideation: No Patient has homicidal ideation: No - Past Medical History Cardiac Medical History: Reports: Hx Congestive Heart Failure, Hx Coronary Artery Disease, Hx Hypercholesterolemia, Hx Hypertension Denies: Hx Heart Attack Pulmonary Medical History: Reports: Hx Asthma Neurological Medical History: Reports: Hx Migraine Endocrine Medical History: Reports: Hx Diabetes Mellitus Type 2 Renal/ Medical History: Reports: Hx Kidney Stones. Denies: Hx Peritoneal Dialysis Musculoskeletal Medical History: Reports Hx Arthritis, Reports Hx Musculoskeletal Deformity, Reports Hx Musculoskeletal Trauma Psychiatric Medical History: Reports: Hx Depression Past Surgical History: Reports: Hx Adenoidectomy, Hx Cardiac Catheterization, Hx Cholecystectomy, Hx Coronary Stent - x4 in 2009 according to the patient, Hx Hysterectomy, Hx Tonsillectomy, Hx Tubal Ligation - Immunizations Immunizations up to date: Yes Hx Diphtheria, Pertussis, Tetanus Vaccination: Yes Review of Systems - Review of Systems Notes: Constitutional: Negative for fever. HENT: Negative for sore throat. Eyes: Negative for visual changes. Cardiovascular: Negative for chest pain. Respiratory: Negative for shortness of breath. Gastrointestinal: Positive for abdominal pain, vomiting or diarrhea. Genitourinary: Negative for dysuria. Musculoskeletal: Negative for back pain. Skin: Negative for rash. Neurological: Negative for headaches, weakness or numbness. 10 point ROS negative except as marked above and in HPI. Physical Exam - Vital signs Vitals: Temp Pulse Resp BP Pulse Ox 98.7 F 105 H 20 180/145 H 98 08/11/19 21:59 08/11/19 21:59 08/11/19 21:59 08/11/19 21:59 08/11/19 21:59 - Notes Notes: GENERAL: Well-appearing, well-nourished and in no acute distress. HEAD: Atraumatic, normocephalic. EYES: Extraocular movements intact, sclera anicteric, conjunctiva are normal. NECK: Normal range of motion, supple without lymphadenopathy or JVD. LUNGS: Breath sounds clear to auscultation bilaterally and equal. No wheezes rales or rhonchi. HEART: Regular rate and rhythm without murmurs, rubs or gallops. ABDOMEN: Soft, mildly tender. No guarding, no rebound. No masses appreciated. EXTREMITIES: Normal range of motion, no pitting or edema. No clubbing or cyanosis. NEUROLOGICAL: Cranial nerves II through XII grossly intact. Normal speech, normal gait. PSYCH: Normal mood, normal affect. SKIN: Warm, Dry, normal turgor, no rashes or lesions noted. Course - Re-evaluation Re-evalutation: 08/12/19 nontoxic, well-appearing 53-year-old female presents with abdominal cramping, diarrhea, nausea/vomiting. Patient has had 4 episodes of diarrhea today without blood. Patient has vomiting with food but not with fluids. Patient denies any fever or chills. Patient denies any chest pain or shortness of breath. Abdomen soft mildly tender without guarding or rebound. Nonsurgical abdomen. Lab work is reassuring. Kidney function is at baseline. CT shows no acute abnormalities. Patient given Bentyl without relief. Reglan ordered however patient does not have an IV due to being a hard stick. Imodium was ordered. 08/12/19 03:45 patient is afebrile. Initially mildly tachycardic however now is non-tachycardic. Patient is not hypoxic. 08/12/19 04:40 Pt "spit up" immodium. 08/12/19 06:36 Pt is vomiting. Zofran ordered. 08/12/19 07:58 RN informed that pt's nausea has improved significantly with zofran. Pt to be PO challenged. 08/12/19 08:01 RN states pt is resting comfortably and not vomiting anymore. Pt given strict return precautions and close follow up with PCP. All questions/concerns addressed prior to discharge. - Vital Signs Vital signs: Temp Pulse Resp BP Pulse Ox 98.3 F 101 H 13 178/119 H 98 08/12/19 06:00 08/11/19 23:18 08/12/19 07:01 08/12/19 07:00 08/12/19 07:01 - Laboratory Result Diagrams: 08/12/19 00:45 08/12/19 00:45 Laboratory results interpreted by me: 08/12/19 08/12/19 08/12/19 00:45 00:45 00:45 WBC 10.7 H RDW 14.9 H Creatinine 1.89 H Est GFR ( Amer) 34 L Est GFR (MDRD) Non-Af 28 L Urine Protein >=500 H Urine Ketones TRACE H Ur Leukocyte Esterase SMALL H Discharge - Discharge Clinical Impression: Nausea vomiting and diarrhea Abdominal pain Qualifiers: Abdominal location: generalized Qualified Code(s): R10.84 - Generalized abdominal pain Condition: Stable Disposition: HOME, SELF-CARE Instructions: Abdominal Pain ([facility]), Vomiting ([facility]) Additional Instructions: Your CT scan was normal. Your labs were reassuring today. Please take medication as prescribed. May take over the counter immodium for diarrhea. Please follow up with your primary care doctor in 2-3 days. Return to ER for any worsening symptoms, including worsening abdominal pain, vomiting not controlled by medication, fever, chest pain, shortness of breath, or any other symptoms that are concerning to you. Prescriptions: Dicyclomine HCl [Bentyl 20 mg Tablet] 20 mg PO QID #40 tablet Ondansetron [Zofran Odt 4 mg Tablet] 1 - 2 tab PO Q4H PRN #15 tab.rapdis PRN Reason: For Nausea/Vomiting Referrals: WENDY STERLING MD [NO LOCAL MD] - Follow up tomorrow
--- NOTE | 2019-08-12 03:34 | RADIOLOGY REPORT (SQ) ---
EXAM DESCRIPTION: CT ABDOMEN PELVIS WITHOUT IV CONTRAST COMPLETED DATE/TME: 08/12/2019 02:36 CLINICAL HISTORY: 53 years, Female, abd pain, GFR 28 COMPARISON: April 05, 2015 TECHNIQUE: Images stored on PACS. All CT scanners at this facility use dose modulation, iterative reconstruction, and/or weight based dosing when appropriate to reduce radiation dose to as low as reasonably achievable (ALARA). [facility]: Dose Right [facility]: CareDose [facility]: Dose Right [facility]: Teradose 4D [facility]: [employer] LIMITATIONS: None. FINDINGS: Lung bases are grossly clear. The heart is enlarged, larger than prior. The liver appears mildly heterogeneous. No dominant lesion on this noncontrast examination. Gallbladder surgically absent, interval change from prior. The pancreas is of grossly normal contour on noncontrast imaging. The spleen appears grossly normal. The adrenals appear grossly normal. Simple cysts are seen in the kidneys bilaterally. No urolithiasis hydronephrosis or hydroureter. The bowel is nonobstructed. No focal inflammatory changes. Apparent postsurgical change the pelvis. Please correlate with history. The appendix appears normal. The visualized bones demonstrate age-appropriate osteoarthritis IMPRESSION: No acute intra-abdominal process. The heart appears larger than it did on prior examination. TECHNICAL DOCUMENTATION: Quality ID # [id number]: Final reports with documentation of one or more dose reduction techniques (e.g., Automated exposure control, adjustment of the mA and/or kV according to patient size, use of iterative reconstruction technique) copyright 2011 [employer]- All Rights Reserved
[2019-08-12] MEDS ORDERED: PROMETHAZINE HCL INJ 25 MG/1 ML VIAL IM ONE (05:28)
[2019-08-12] MEDS ORDERED: ONDANSETRON HCL INJ/PF 4 MG/2 ML SDV IV ONE (06:34)
[2019-08-12] MEDS ORDERED: ONDANSETRON HCL INJ/PF 4 MG/2 ML SDV IM ONE (06:34)
[2019-08-12 07:07] LABS: A TYPE INFLUENZA AG NEGATIVE (NEGATIVE); B INFLUENZA AG NEGATIVE (NEGATIVE)
[2019-08-12] MEDS ORDERED: METOCLOPRAMIDE HCL INJ/PF 10 MG/2 ML SDV IM ONE (07:28)
[2019-08-12 08:16] VITALS: BP 162/97
--- NOTE | 2019-08-12 09:17 | EKG REPORT ---
SEVERITY:- ABNORMAL ECG - SINUS RHYTHM PROBABLE LEFT ATRIAL ABNORMALITY LAD, CONSIDER LAFB OR INFERIOR INFARCT CONSIDER ANTERIOR INFARCT : Confirmed by: Vasyl Benavides 12-Aug-2019 09:15:33
== END 2019-08-12 08:17 | disposition home or self-care (01) ==
LOC: ER 21:33
DX: R11.2 Nausea with vomiting, unspecified (principal); R19.7 Diarrhea, unspecified; R10.84 Generalized abdominal pain; Z88.8 Allergy status to other drugs, medicaments and biological substances; I13.0 Hypertensive heart and chronic kidney disease with heart failure and stage 1 through stage 4 chronic kidney disease, or unspecified chronic kidney disease; E11.22 Type 2 diabetes mellitus with diabetic chronic kidney disease; N18.9 Chronic kidney disease, unspecified; I50.9 Heart failure, unspecified; I25.10 Atherosclerotic heart disease of native coronary artery without angina pectoris
CPT/HCPCS: 93005; 99284; 96372; 36415; 83690; 85025; 80053; 81001; 87804; 74176; 93010; J0500; A9270; J2550; J2405

== ENCOUNTER 2019-09-01 15:12 | Emergency (ER) | payer MEDICARE, MEDICAID ==
--- NOTE | 2019-09-01 16:06 | ER Document Report ---
ED Medical Screen (RME) - General Chief Complaint: Breathing Difficulty Stated Complaint: SHORTNESS OF BREATH Time Seen by Provider: 09/01/19 16:00 Primary Care Provider: JONATHON RODRIGEZ MD [Primary Care Provider] - Follow up as needed Notes: 53 y/o female presents for dyspnea and chest pain that started today at noon. RRR. Lungs CTA bilaterally. History of asthma. Denies n/v but states "I have felt tired today." I have greeted and performed a rapid initial assessment of this patient. A comprehensive ED assessment and evaluation of the patient, analysis of test results and completion of the medical decision making process with be conducted by additional ED providers. TRAVEL OUTSIDE OF THE [place] IN LAST 30 DAYS: No - Related Data Allergies/Adverse Reactions: acetaminophen [Acetaminophen] Allergy (Severe, Verified 09/01/19 15:58) itching Shellfish * [Shellfish] Allergy (Severe, Verified 09/01/19 15:58) itch, rash Sulfa (Sulfonamide Antibiotics) Allergy (Severe, Verified 09/01/19 15:58) Hives Iodinated Contrast Media [IV Dye, Iodine Containing] Allergy (Intermediate, Verified 09/01/19 15:58) rash, itching iodine [Iodine] Allergy (Intermediate, Verified 09/01/19 15:58) itch, rash Past Medical History - Social History Frequency of alcohol use: None Drug Abuse: None - Past Medical History Cardiac Medical History: Reports: Hx Congestive Heart Failure, Hx Coronary Artery Disease, Hx Hypercholesterolemia, Hx Hypertension Denies: Hx Heart Attack Pulmonary Medical History: Reports: Hx Asthma Neurological Medical History: Reports: Hx Migraine Endocrine Medical History: Reports: Hx Diabetes Mellitus Type 2 Renal/ Medical History: Reports: Hx Kidney Stones. Denies: Hx Peritoneal Dialysis Musculoskeltal Medical History: Reports Hx Arthritis, Reports Hx Musculoskeletal Deformity, Reports Hx Musculoskeletal Trauma Psychiatric Medical History: Reports: Hx Depression Past Surgical History: Reports: Hx Adenoidectomy, Hx Cardiac Catheterization, Hx Cholecystectomy, Hx Coronary Stent - x4 in 2009 according to the patient, Hx Hysterectomy, Hx Tonsillectomy, Hx Tubal Ligation - Immunizations Immunizations up to date: Yes Hx Diphtheria, Pertussis, Tetanus Vaccination: Yes Physical Exam - Vital signs Vitals: Temp Pulse Resp BP Pulse Ox 98.0 F 62 18 139/79 H 95 09/01/19 15:56 09/01/19 15:56 09/01/19 15:56 09/01/19 15:56 09/01/19 15:56 Course - Vital Signs Vital signs: Temp Pulse Resp BP Pulse Ox 98.0 F 62 18 139/79 H 95 09/01/19 15:56 09/01/19 15:56 09/01/19 15:56 09/01/19 15:56 09/01/19 15:56 Doctor's Discharge - Discharge Referrals: JONATHON RODRIGEZ MD [Primary Care Provider] - Follow up as needed
--- NOTE | 2019-09-01 17:07 | RADIOLOGY REPORT (SQ) ---
EXAM DESCRIPTION: CHEST 2 VIEWS COMPLETED DATE/TIME: 09/01/2019 4:48 pm REASON FOR STUDY: chest pain, dyspnea COMPARISON: 04/09/2019 EXAM PARAMETERS: NUMBER OF VIEWS: two views TECHNIQUE: Digital Frontal and Lateral radiographic views of the chest acquired. RADIATION DOSE: NA LIMITATIONS: Low lung volumes. FINDINGS: LUNGS AND PLEURA: Linear atelectasis in the right base. No effusions. No consolidation o r pneumothorax. MEDIASTINUM AND HILAR STRUCTURES: No masses or contour abnormalities. HEART AND VASCULAR STRUCTURES: Heart normal size. No evidence for failure. BONES: No acute findings. HARDWARE: None in the chest. OTHER: No other significant finding. IMPRESSION: Subsegmental atelectasis in the right base. No other significant findings. Study is li mited by low lung volumes. TECHNICAL DOCUMENTATION: JOB ID: [id number] 2010 [employer]- All Rights Reserved Reading location - IP/workstation name: [email or web address]
[2019-09-01 19:13] LABS: ABSOLUTE EOSINOPHILS # (AUTO) 0.3 10^3/uL (0.0-0.6); ABSOLUTE LYMPHOCYTES (AUTO) 1.6 10^3/uL (0.5-4.7); ABSOLUTE MONOCYTES (AUTO) 0.6 10^3/uL (0.1-1.4); ABSOLUTE NEUT (AUTO) 4.1 10^3/uL (1.7-8.2); BASOPHILS % (AUTO) 0.5 % (0-2); EOSINOPHILS % (AUTO) 5.1 % (0-6); HEMATOCRIT 36.8 % (36.0-47.0); HEMOGLOBIN 12.4 g/dL (12.0-15.5); LYMPHOCYTES % (AUTO) 24.4 % (13-45); MEAN CORPUSCULAR HEMOGLOBIN 28.7 pg (27.0-33.4); MEAN CORPUSCULAR HGB CONC 33.7 g/dL (32.0-36.0); MEAN CORPUSCULAR VOLUME 85 fl (80-97); MONOCYTES % (AUTO) 8.6 % (3-13); PLATELET COUNT 226 10^3/uL (150-450); RED BLOOD COUNT 4.32 10^6/uL (3.72-5.28); RED CELL DISTRIBUTION WIDTH 15.4 % (11.5-14.0); SEGMENTED NEUTROPHILS % (AUTO) 61.4 % (42-78); TOTAL CELLS COUNTED % (AUTO) 100 %; WHITE BLOOD COUNT 6.7 10^3/uL (4.0-10.5)
[2019-09-01 19:33] LABS: ALBUMIN 3.8 g/dL (3.5-5.0); ALKALINE PHOSPHATASE 72 U/L (38-126); ANION GAP 10 (5-19); ASPARTATE AMINO TRANSFERASE 20 U/L (14-36); BILIRUBIN,DIRECT 0.3 mg/dL (0.0-0.4); BILIRUBIN,TOTAL 0.4 mg/dL (0.2-1.3); BLOOD UREA NITROGEN 24 mg/dL (7-20); CALCIUM 9.5 mg/dL (8.4-10.2); CARBON DIOXIDE 26 mmol/L (22-30); CHLORIDE 102 mmol/L (98-107); GLUCOSE 97 mg/dL (75-110); POTASSIUM 3.6 mmol/L (3.6-5.0); TOTAL PROTEIN 6.9 g/dL (6.3-8.2)
[2019-09-01] MEDS ORDERED: NORMAL SALINE 1000 ML 1,000 ML IV ONE (20:18)
--- NOTE | 2019-09-01 20:20 | ER Document Report ---
ED General - General Chief Complaint: Breathing Difficulty Stated Complaint: SHORTNESS OF BREATH Time Seen by Provider: 09/01/19 16:00 Primary Care Provider: JONATHON RODRIGEZ MD [Primary Care Provider] - Follow up in 3-5 days Notes: Patient is a 53 year old female that comes to the Emergency Department for chief complaint of right sided chest pain. She states for the past 24 hours or so she has had a non-productive cough, she states that while she was going to the bathroom and coughing around noon she started getting some pain and "soreness" to the right side of her chest. She denies nausea or vomiting, injury, d izziness, passing out, or current pain. She states she felt feverish earlier but has not had any recorded fevers. She reports a history of asthma but denies wheezing or needing her inhaler. She also reports a history of hypertension, hyperlipidemia, Type II diabetes, and she states she had a heart catheterization in 2009 (but she states she isn't sure if she got a stent, she denies history of [place], and she does not follow with Cardiology). She denies smoking. TRAVEL OUTSIDE OF THE [place] IN LAST 30 DAYS: No - Related Data Allergies/Adverse Reactions: acetaminophen [Acetaminophen] Allergy (Severe, Verified 09/01/19 15:58) itching Shellfish * [Shellfish] Allergy (Severe, Verified 09/01/19 15:58) itch, rash Sulfa (Sulfonamide Antibiotics) Allergy (Severe, Verified 09/01/19 15:58) Hives Iodinated Contrast Media [IV Dye, Iodine Containing] Allergy (Intermediate, Verified 09/01/19 15:58) rash, itching iodine [Iodine] Allergy (Intermediate, Verified 09/01/19 15:58) itch, rash Past Medical History - General Information source: Patient - Social History Smoking Status: Former Smoker Frequency of alcohol use: None Drug Abuse: None Lives with: Family Family History: Arthritis, CAD, DM, Hyperlipidemia, Hypertension, Malignancy, Thyroid Disfunction, Other - kidney disease Patient has suicidal ideation: No Patient has homicidal ideation: No - Past Medical History Cardiac Medical History: Reports: Hx Congestive Heart Failure, Hx Coronary Artery Disease, Hx Hypercholesterolemia, Hx Hypertension Denies: Hx Heart Attack Pulmonary Medical History: Reports: Hx Asthma Neurological Medical History: Reports: Hx Migraine Endocrine Medical History: Reports: Hx Diabetes Mellitus Type 2 Renal/ Medical History: Reports: Hx Kidney Stones. Denies: Hx Peritoneal Dialysis Musculoskeletal Medical History: Reports Hx Arthritis, Reports Hx Musculoskeletal Deformity, Reports Hx Musculoskeletal Trauma Psychiatric Medical History: Reports: Hx Depression Past Surgical History: Reports: Hx Adenoidectomy, Hx Cardiac Catheterization - 2010, Hx Cholecystectomy, Hx Hysterectomy, Hx Tonsillectomy, Hx Tubal Ligation - Immunizations Immunizations up to date: Yes Hx Diphtheria, Pertussis, Tetanus Vaccination: Yes Review of Systems - Review of Systems Constitutional: See HPI EENT: No symptoms reported Cardiovascular: See HPI Respiratory: See HPI Gastrointestinal: No symptoms reported Genitourinary: No symptoms reported Female Genitourinary: No symptoms reported Musculoskeletal: No symptoms reported Skin: No symptoms reported Hematologic/Lymphatic: No symptoms reported Neurological/Psychological: No symptoms reported Physical Exam - Vital signs Vitals: Temp Pulse Resp BP Pulse Ox 98.0 F 62 18 139/79 H 95 09/01/19 15:56 09/01/19 15:56 09/01/19 15:56 09/01/19 15:56 09/01/19 15:56 - Notes Notes: GENERAL: Alert, interacts well. No acute distress. HEAD: Normocephalic, atraumatic. EYES: Pupils equal, round, and reactive to light. Extraocular movements intact. ENT: Oral mucosa moist, tongue midline. Oropharynx unremarkable. Airway patent. Sinuses unremarkable, nasal passage unremarkable. NECK: Full range of motion. Supple. Trachea midline. LUNGS: Clear to auscultation bilaterally, no wheezes, rales, or rhonchi. No respiratory distress. There is some mild tenderness with palpation over the mid to right anterior chest wall. No erythema, swelling, significant tenderness, or crepitus. HEART: Regular rate and rhythm. No murmur ABDOMEN: Soft, non-tender. Non-distended. EXTREMITIES: Moves all 4 extremities spontaneously. No edema, normal radial and dorsalis pedis pulses bilaterally. No cyanosis. BACK: no cervical, thoracic, lumbar midline tenderness. No saddle anesthesia, normal distal neurovascular exam. Moves all extremities in full range of motion. NEUROLOGICAL: Alert and oriented x3. Normal speech. Cranial nerves II through XII grossly intact. PSYCH: Normal affect, normal mood. SKIN: Warm, dry, normal turgor. No rashes or lesions noted. Course - Re-evaluation Re-evalutation: Patient sleeping and easily aroused. She does have reproducible pain over the r ight side of her chest, pain is also worse with cough reportedly. She has occasional mild coughing but no overt wheezing, no tachypnea, she is not complaining of shortness of breath. Remaining exam very unremarkable. No hypoxia. CBC, chemistry, chest x-ray, EKG without significant change or conc erning finding. Troponin negative. Troponin repeated and still negative. Based on patient's overall appearance I suspect this is upper respiratory in nature and also chest wall in nature. Patient is requesting discharge and is requesting steroids because of her asthma. She is not wheezing, I did discuss different alternatives but patient is requesting steroids to use with her inhaler to get over her symptoms. Patient provided with this, discussed close follow-up and return precautions. Patient states appreciation and agreement. Stable at time of discharge. - Vital Signs Vital signs: Temp Pulse Resp BP Pulse Ox 97.9 F 70 16 135/91 H 99 09/01/19 23:57 09/01/19 23:57 09/01/19 23:57 09/01/19 23:57 09/01/19 23:57 - Laboratory Result Diagrams: 09/01/19 18:38 09/01/19 18:38 Laboratory results interpreted by me: 09/01/19 09/01/19 18:38 18:38 RDW 15.4 H BUN 24 H Creatinine 2.25 H Est GFR ( Amer) 27 L Est GFR (MDRD) Non-Af 23 L - EKG Interpretation by Me Additional EKG results interpreted by me: EKG shows sinus rhythm at a rate of 60. Left axis deviation. QTC of 472. Borderline abnormal R wave progression. Flattened T waves inferiorly and anteriorly but no ischemic T wave inversions or ST segment changes in consecutive leads. Similar to prior. Discharge - Discharge Clinical Impression: Cough, Right-sided chest pain, Chest wall pain Condition: Stable Disposition: HOME, SELF-CARE Additional Instructions: Your work-up is reassuring. Your evaluation is most consistent with a viral upper respiratory infection but no concerning findings in regards to your heart or lungs are seen. Take prednisone as prescribed, use your albuterol if needed for cough/wheezing. Your kidney function is slightly worse than usual, you have been treated for this, please follow-up closely with your primary care provider within a week and have your kidney functioning rechecked. Your creatinine today was 2.25. Come back if you are worse including difficulty breathing, spiking fevers, severe worsening pain, passing out, or any other concerning symptoms. Prescriptions: Prednisone [Deltasone 20 mg Tablet] 2 tab PO DAILY 5 Days #10 tablet Referrals: JONATHON RODRIGEZ MD [Primary Care Provider] - Follow up in 3-5 days
--- NOTE | 2019-09-01 22:32 | EKG REPORT ---
SEVERITY:- ABNORMAL ECG - SINUS RHYTHM PROBABLE LEFT ATRIAL ABNORMALITY LEFT AXIS DEVIATION ABNRM R PROG, CONSIDER ASMI OR LEAD PLACEMENT BORDERLINE T WAVE ABNORMALITIES : Confirmed by: Vasyl Benavides 01-Sep-2019 22:31:18
[2019-09-02 00:03] VITALS: BP 135/91
== END 2019-09-02 00:06 | disposition home or self-care (01) ==
LOC: ER 15:12
DX: R07.89 Other chest pain (principal); R05 Cough; I25.10 Atherosclerotic heart disease of native coronary artery without angina pectoris; I10 Essential (primary) hypertension; E11.9 Type 2 diabetes mellitus without complications; J45.909 Unspecified asthma, uncomplicated; Z88.8 Allergy status to other drugs, medicaments and biological substances; Z91.013 Allergy to seafood; Z88.2 Allergy status to sulfonamides; Z91.041 Radiographic dye allergy status; Z87.891 Personal history of nicotine dependence; Z82.49 Family history of ischemic heart disease and other diseases of the circulatory system
CPT/HCPCS: 93005; 99285; 96360; 36415; 85025; 80053; 84484; 71046; 93010; J7030

== ENCOUNTER → 2019-09-15 | Outpatient (CLI) | payer MEDICARE, MEDICAID ==
[2019-09-15 08:37] LABS: ABSOLUTE BASOPHILS # (AUTO) 0.1 10^3/uL (0.0-0.2); ABSOLUTE EOSINOPHILS # (AUTO) 0.2 10^3/uL (0.0-0.6); ABSOLUTE LYMPHOCYTES (AUTO) 2.5 10^3/uL (0.5-4.7); ABSOLUTE MONOCYTES (AUTO) 0.6 10^3/uL (0.1-1.4); ABSOLUTE NEUT (AUTO) 5.7 10^3/uL (1.7-8.2); BASOPHILS % (AUTO) 0.6 % (0-2); EOSINOPHILS % (AUTO) 2.3 % (0-6); HEMATOCRIT 36.4 % (36.0-47.0); HEMOGLOBIN 12.1 g/dL (12.0-15.5); LYMPHOCYTES % (AUTO) 27.6 % (13-45); MEAN CORPUSCULAR HEMOGLOBIN 28.4 pg (27.0-33.4); MEAN CORPUSCULAR HGB CONC 33.3 g/dL (32.0-36.0); MEAN CORPUSCULAR VOLUME 85 fl (80-97); MONOCYTES % (AUTO) 6.8 % (3-13); PLATELET COUNT 195 10^3/uL (150-450); RED BLOOD COUNT 4.27 10^6/uL (3.72-5.28); RED CELL DISTRIBUTION WIDTH 15.1 % (11.5-14.0); SEGMENTED NEUTROPHILS % (AUTO) 62.7 % (42-78); TOTAL CELLS COUNTED % (AUTO) 100 %; WHITE BLOOD COUNT 9.1 10^3/uL (4.0-10.5)
[2019-09-15 09:00] LABS: ALBUMIN 3.7 g/dL (3.5-5.0); ALKALINE PHOSPHATASE 66 U/L (38-126); ANION GAP 9 (5-19); ASPARTATE AMINO TRANSFERASE 18 U/L (14-36); BILIRUBIN,DIRECT 0.3 mg/dL (0.0-0.4); BILIRUBIN,TOTAL 0.6 mg/dL (0.2-1.3); BLOOD UREA NITROGEN 27 mg/dL (7-20); CALCIUM 9.1 mg/dL (8.4-10.2); CARBON DIOXIDE 26 mmol/L (22-30); CHLORIDE 106 mmol/L (98-107); CHOLESTEROL 149.63 mg/dL (0-200); GLUCOSE 121 mg/dL (75-110); POTASSIUM 3.7 mmol/L (3.6-5.0); TOTAL PROTEIN 6.7 g/dL (6.3-8.2); TRIGLYCERIDES 82 mg/dL (<150)
[2019-09-15 09:12] LABS: DIRECT LDL 69 mg/dL (<100)
[2019-09-15 09:17] LABS: FREE T4 (FREE THYROXINE) 1.47 ng/dL (0.78-2.19)
[2019-09-15 09:31] LABS: THYROID STIMULATING HORMONE 2.12 uIU/mL (0.47-4.68)
[2019-09-16 14:37] LABS: CREATININE URINE 98.2 mg/dL (Not Estab.)
[2019-09-17 13:17] LABS: MICROALBUMIN URINE 1116.5 ug/mL (Not Estab.)
== END ==
LOC: OD 07:56
PROVIDERS: ATTEND Internal Medicine
DX: E78.2 Mixed hyperlipidemia (principal); I10 Essential (primary) hypertension; E11.9 Type 2 diabetes mellitus without complications; E55.9 Vitamin D deficiency, unspecified; E66.01 Morbid (severe) obesity due to excess calories
CPT/HCPCS: 36415; 80053; 80061; 82043; 82306; 82570; 83036; 84439; 84443; 85025

== ENCOUNTER → 2019-10-29 | Outpatient (CLI) | payer MEDICARE, MEDICAID ==
[2019-10-29 14:38] LABS: ANION GAP 5 (5-19); BLOOD UREA NITROGEN 27 mg/dL (7-20); CALCIUM 9.2 mg/dL (8.4-10.2); CARBON DIOXIDE 24 mmol/L (22-30); CHLORIDE 111 mmol/L (98-107); GLUCOSE 103 mg/dL (75-110); PHOSPHORUS 3.5 mg/dL (2.5-4.5); POTASSIUM 3.6 mmol/L (3.6-5.0)
[2019-10-29 15:02] LABS: URINE CREATININE 175.6 mg/dL (15-278)
[2019-10-29 15:14] LABS: UR PRO/CREAT RATIO RESULT 2.3 mg/mg (0.0-0.2); URINE PROTEIN 402.1 mg/dL (<12)
== END ==
LOC: OD 13:36
PROVIDERS: ATTEND Internal Medicine Nephrology
DX: E11.22 Type 2 diabetes mellitus with diabetic chronic kidney disease (principal); N18.2 Chronic kidney disease, stage 2 (mild)
CPT/HCPCS: 36415; 80048; 82570; 83970; 84100; 84156

== ENCOUNTER 2020-03-01 11:43 | Emergency (ER) | payer MEDICARE, MEDICAID ==
[2020-03-01 11:49] VITALS: BP 142/90
--- NOTE | 2020-03-01 13:36 | RADIOLOGY REPORT (SQ) ---
EXAM DESCRIPTION: CHEST SINGLE VIEW IMAGES COMPLETED DATE/TIME: 03/01/2020 1:15 pm REASON FOR STUDY: cough COMPARISON: 09/01/2019 EXAM PARAMETERS: NUMBER OF VIEWS: One view. TECHNIQUE: Single frontal radiographic view of the chest acquired. RADIATION DOSE: NA LIMITATIONS: None. FINDINGS: LUNGS AND PLEURA: No opacities, masses or pneumothorax. No pleural effusion. MEDIASTINUM AND HILAR STRUCTURES: No masses. Contour normal. HEART AND VASCULAR STRUCTURES: Heart normal in size. Normal vasculature. BONES: No acute findings. HARDWARE: None in the chest. OTHER: No other significant finding. IMPRESSION: NO ACUTE RADIOGRAPHIC FINDING IN THE CHEST. TECHNICAL DOCUMENTATION: JOB ID: [id number] 2010 [employer]- All Rights Reserved Reading location - IP/workstation name: [email or web address]
--- NOTE | 2020-03-01 19:39 | ER Document Report ---
Doctor's Note Notes: 03/01/20 19:38 Patient left prior to my actual physical examination of her. She was documented out at 1313 for can get back to her secondary to a critical case. So no medical screening exam was done and no physical contact was made.
== END 2020-03-01 13:15 | disposition left against medical advice (07) ==
LOC: ER 11:43
DX: R05 Cough (principal)
CPT/HCPCS: 71045; 99283

== ENCOUNTER → 2020-04-27 | Outpatient (CLI) | payer MEDICARE, MEDICAID ==
[2020-04-27 15:09] LABS: ALBUMIN 4.2 g/dL (3.5-5.0); ANION GAP 10 (5-19); BLOOD UREA NITROGEN 32 mg/dL (7-20); CALCIUM 9.4 mg/dL (8.4-10.2); CARBON DIOXIDE 23 mmol/L (22-30); CHLORIDE 107 mmol/L (98-107); GLUCOSE 101 mg/dL (75-110); PHOSPHORUS 4.4 mg/dL (2.5-4.5); POTASSIUM 3.8 mmol/L (3.6-5.0)
[2020-04-27 15:29] LABS: URINE PROTEIN 331.5 mg/dL (<12)
== END ==
LOC: OD 13:44
PROVIDERS: ATTEND Internal Medicine Nephrology
DX: N18.30 Chronic kidney disease, stage 3 unspecified (principal)
CPT/HCPCS: 36415; 80069; 82570; 83970; 84156

== ENCOUNTER 2020-05-30 23:18 | Emergency (ER) | payer OTHER, MEDICARE, MEDICAID ==
[2020-05-30] MEDS ORDERED: KETOROLAC TROMETHAMINE INJ/PF 30 MG/1 ML SDV IV ONE (23:37)
[2020-05-30] MEDS ORDERED: DIPHENHYDRAMINE HCL 50 MG/ML VIAL IV ONE (23:38)
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
[2020-05-31] MEDS ORDERED: TRAMADOL HCL 50 MG TABLET PO ONE (00:43)
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
--- NOTE | 2020-05-31 01:24 | RADIOLOGY REPORT (SQ) ---
COMPLETED DATE/TME: 05/31/2020 00:52 EXAM: CT head without contrast. INDICATION: Headache. TECHNIQUE: Contiguous axial CT images of the brain. Intravenous contrast: Absent. DLP 937 mGy-cm. This exam was performed according to our departmental dose-optimization program, which includes automated exposure control, adjustment of the mA and/or kV according to patient size and/or use of iterative reconstruction technique. COMPARISON: 05/14/2013. FINDINGS: Subcutaneous: Unremarkable. No acute intracranial hemorrhage. No midline shift. No mass effect. Ventricles: No hydrocephalus. Steele-white differentiation preserved. Paranasal sinuses/mastoid air cells: Visualized portions are aerated. Bones/orbits: Visualized portions are unremarkable. IMPRESSION: No acute intracranial abnormality
[2020-05-31] MEDS ORDERED: CLONIDINE HCL 0.2 MG TABLET PO ONE (02:22)
[2020-05-31] MEDS ORDERED: LORAZEPAM 1 MG TABLET PO ONE (02:23)
[2020-05-31] MEDS ORDERED: OXYCODONE-ACETAMINOPHEN 5-325 MG TABLET PO ONE (02:23)
[2020-05-31 03:45] VITALS: BP 140/87
== END 2020-05-31 03:44 | disposition home or self-care (01) ==
LOC: ER 23:18
DX: R51.9 Headache, unspecified (principal); M25.551 Pain in right hip; M54.5 Low back pain; V59.40XA Driver of pick-up truck or van injured in collision with unspecified motor vehicles in traffic accident, initial encounter; Y93.89 Activity, other specified; Y92.414 Local residential or business street as the place of occurrence of the external cause; R55 Syncope and collapse; M47.812 Spondylosis without myelopathy or radiculopathy, cervical region; I11.0 Hypertensive heart disease with heart failure; I50.9 Heart failure, unspecified; I25.10 Atherosclerotic heart disease of native coronary artery without angina pectoris; J45.909 Unspecified asthma, uncomplicated; E11.9 Type 2 diabetes mellitus without complications; Z79.899 Other long term (current) drug therapy; Z88.8 Allergy status to other drugs, medicaments and biological substances; Z88.2 Allergy status to sulfonamides; Z91.013 Allergy to seafood; Z91.041 Radiographic dye allergy status
CPT/HCPCS: 70450; 71250; 72125; 74176; 99285

== ENCOUNTER 2020-07-24 20:08 | Emergency (ER) | payer MEDICARE, MEDICAID ==
--- NOTE | 2020-07-24 21:32 | ER Document Report ---
ED Medical Screen (RME) - General Chief Complaint: Cough Stated Complaint: COUGH Time Seen by Provider: 07/24/20 21:26 Primary Care Provider: JONATHON RODRIGEZ MD [Primary Care Provider] - Follow up as needed Notes: HPI: 54-year-old female with history of hypertension diabetes presenting for 1 day of feeling tired with coughing up bloody sputum. Patient's grandchild has also been sick with upper respiratory symptoms. No fever no specific chest pain shortness of breath PHYSICAL EXAMINATION: Patient does have some bloody sputum on tissue. Lung sounds are clear to auscultation regular rate and rhythm I have greeted and performed a rapid initial assessment of this patient. A comprehensive ED assessment and evaluation of the patient, analysis of test results and completion of medical decision making process will be conducted by an additional ED providers. Please note that clinical decision making for this patient was made during the 2019 pandemic of novel coronavirus which caused a significant strain on the healthcare system including at this particular facility. Criteria for admission discharge and level of care decisions as well as treatment decisions have necessarily changed TRAVEL OUTSIDE OF THE [place] IN LAST 30 DAYS: No - Related Data Allergies/Adverse Reactions: acetaminophen [Acetaminophen] Allergy (Severe, Verified 09/01/19 15:58) itching Shellfish * [Shellfish] Allergy (Severe, Verified 09/01/19 15:58) itch, rash Sulfa (Sulfonamide Antibiotics) Allergy (Severe, Verified 09/01/19 15:58) Hives Iodinated Contrast Media [IV Dye, Iodine Containing] Allergy (Intermediate, Verified 09/01/19 15:58) rash, itching iodine [Iodine] Allergy (Intermediate, Verified 09/01/19 15:58) itch, rash Home Medications: bp med, gout, chol med, Past Medical History - Social History Frequency of alcohol use: None Drug Abuse: Marijuana - Past Medical History Cardiac Medical History: Reports: Hx Congestive Heart Failure, Hx Coronary Artery Disease, Hx Hypercholesterolemia, Hx Hypertension Denies: Hx Heart Attack Pulmonary Medical History: Reports: Hx Asthma Neurological Medical History: Reports: Hx Migraine Endocrine Medical History: Reports: Hx Diabetes Mellitus Type 2 Renal/ Medical History: Reports: Hx Kidney Stones. Denies: Hx Peritoneal Dialysis Musculoskeltal Medical History: Reports Hx Arthritis, Reports Hx Musculoskeletal Deformity, Reports Hx Musculoskeletal Trauma Psychiatric Medical History: Reports: Hx Depression Past Surgical History: Reports: Hx Adenoidectomy, Hx Cardiac Catheterization - 2010, Hx Cholecystectomy, Hx Coronary Stent - x4 in 2010 according to the breezy ent, Hx Hysterectomy, Hx Tonsillectomy, Hx Tubal Ligation - Immunizations Immunizations up to date: Yes Hx Diphtheria, Pertussis, Tetanus Vaccination: Yes Physical Exam - Vital signs Vitals: Temp Pulse Resp BP Pulse Ox 98.7 F 77 17 130/91 H 95 07/24/20 20:13 07/24/20 20:13 07/24/20 20:13 07/24/20 20:13 07/24/20 20:13 Course - Vital Signs Vital signs: Temp Pulse Resp BP Pulse Ox 98.7 F 77 17 130/91 H 95 07/24/20 20:13 07/24/20 20:13 07/24/20 20:13 07/24/20 20:13 07/24/20 20:13 Doctor's Discharge - Discharge Referrals: JONATHON RODRIGEZ MD [Primary Care Provider] - Follow up as needed
--- NOTE | 2020-07-24 22:11 | RADIOLOGY REPORT (SQ) ---
EXAM DESCRIPTION: X-RAY CHEST- One View CLINICAL HISTORY: Cough COMPARISON: CT chest May 31, 2020 TECHNIQUE: Single view of the chest. FINDINGS: There are low lung volumes with compressive changes and subtle multifocal patchy opacities bilaterally. The pulmonary vascularity is normal. The cardiomediastinal silhouette is normal in size. Osseous structures appear grossly intact. IMPRESSION: Low lung volumes with compressive changes and subtle multifocal patchy opacities bilaterally. Findings are nonspecific and differential diagnosis includes infectious and inflammatory causes.
[2020-07-24 22:31] LABS: ABSOLUTE LYMPHOCYTES (AUTO) 1.1 10^3/uL (0.5-4.7); ABSOLUTE MONOCYTES (AUTO) 0.2 10^3/uL (0.1-1.4); BASOPHILS % (AUTO) 0.2 % (0-2); HEMATOCRIT 37.1 % (36.0-47.0); HEMOGLOBIN 12.5 g/dL (12.0-15.5); LYMPHOCYTES % (AUTO) 17.4 % (13-45); MEAN CORPUSCULAR HEMOGLOBIN 28.8 pg (27.0-33.4); MEAN CORPUSCULAR HGB CONC 33.6 g/dL (32.0-36.0); MEAN CORPUSCULAR VOLUME 86 fl (80-97); MONOCYTES % (AUTO) 3.1 % (3-13); PLATELET COUNT 189 10^3/uL (150-450); RED BLOOD COUNT 4.33 10^6/uL (3.72-5.28); RED CELL DISTRIBUTION WIDTH 15.4 % (11.5-14.0); SEGMENTED NEUTROPHILS % (AUTO) 79.3 % (42-78); TOTAL CELLS COUNTED % (AUTO) 100 %; WHITE BLOOD COUNT 6.3 10^3/uL (4.0-10.5)
[2020-07-24 22:45] LABS: INTERNATIONAL RATION (INR) 0.89; PROTHROMBIN TIME 12.3 SEC (11.4-15.4)
[2020-07-24 23:05] LABS: ALBUMIN 3.8 g/dL (3.5-5.0); ALKALINE PHOSPHATASE 72 U/L (38-126); ANION GAP 8 (5-19); ASPARTATE AMINO TRANSFERASE 36 U/L (14-36); BILIRUBIN,DIRECT 0.2 mg/dL (0.0-0.4); BILIRUBIN,TOTAL 0.4 mg/dL (0.2-1.3); BLOOD UREA NITROGEN 32 mg/dL (7-20); CALCIUM 8.7 mg/dL (8.4-10.2); CARBON DIOXIDE 24 mmol/L (22-30); CHLORIDE 104 mmol/L (98-107); GLUCOSE 152 mg/dL (75-110); POTASSIUM 3.9 mmol/L (3.6-5.0); TOTAL PROTEIN 6.9 g/dL (6.3-8.2)
[2020-07-24 23:12] LABS: A TYPE INFLUENZA AG NEGATIVE (NEGATIVE); B INFLUENZA AG NEGATIVE (NEGATIVE)
--- NOTE | 2020-07-24 23:19 | ER Document Report ---
ED General - General Chief Complaint: Cough Stated Complaint: COUGH Time Seen by Provider: 07/24/20 21:26 Primary Care Provider: JONATHON RODRIGEZ MD [Primary Care Provider] - Follow up as needed TRAVEL OUTSIDE OF THE [place] IN LAST 30 DAYS: No - HPI Notes: 54-year-old female presents with cough. Patient states that she developed cough and fatigue today. She reports her cough is productive of a mucus, she states that she saw flecks of blood twice today. She denies shortness of breath. She denies fever, chills, chest pain, abdominal pain, vomiting or diarrhea. She reports she was recently around her granddaughter who had URI. - Related Data Allergies/Adverse Reactions: acetaminophen [Acetaminophen] Allergy (Severe, Verified 09/01/19 15:58) itching Shellfish * [Shellfish] Allergy (Severe, Verified 09/01/19 15:58) itch, rash Sulfa (Sulfonamide Antibiotics) Allergy (Severe, Verified 09/01/19 15:58) Hives Iodinated Contrast Media [IV Dye, Iodine Containing] Allergy (Intermediate, Verified 09/01/19 15:58) rash, itching iodine [Iodine] Allergy (Intermediate, Verified 09/01/19 15:58) itch, rash Home Medications: bp med, gout, chol med, Past Medical History - General Information source: Patient - Social History Smoking Status: Never Smoker Frequency of alcohol use: None Drug Abuse: Marijuana Family History: Arthritis, CAD, DM, Hyperlipidemia, Hypertension, Malignancy, Thyroid Disfunction, Other - kidney disease - Past Medical History Cardiac Medical History: Reports: Hx Congestive Heart Failure, Hx Coronary Artery Disease, Hx Hypercholesterolemia, Hx Hypertension Denies: Hx Heart Attack Pulmonary Medical History: Reports: Hx Asthma Neurological Medical History: Reports: Hx Migraine Endocrine Medical History: Reports: Hx Diabetes Mellitus Type 2 Renal/ Medical History: Reports: Hx Kidney Stones. Denies: Hx Peritoneal Dialysis Musculoskeletal Medical History: Reports Hx Arthritis, Reports Hx Musculoskeletal Deformity, Reports Hx Musculoskeletal Trauma Psychiatric Medical History: Reports: Hx Depression Past Surgical History: Reports: Hx Adenoidectomy, Hx Cardiac Catheterization - 2009, Hx Cholecystectomy, Hx Coronary Stent - x4 in 2009 according to the patient, Hx Hysterectomy, Hx Tonsillectomy, Hx Tubal Ligation - Immunizations Immunizations up to date: Yes Hx Diphtheria, Pertussis, Tetanus Vaccination: Yes Review of Systems - Review of Systems Constitutional: denies: Chills, Fever EENT: No symptoms reported Cardiovascular: denies: Chest pain Respiratory: Cough. denies: Short of breath Gastrointestinal: denies: Abdominal pain, Diarrhea, Nausea, Vomiting Genitourinary: No symptoms reported Female Genitourinary: No symptoms reported Musculoskeletal: No symptoms reported Skin: No symptoms reported Hematologic/Lymphatic: No symptoms reported Neurological/Psychological: No symptoms reported Physical Exam - Vital signs Vitals: Temp Pulse Resp BP Pulse Ox 98.7 F 77 17 130/91 H 95 07/24/20 20:13 07/24/20 20:13 07/24/20 20:13 07/24/20 20:13 07/24/20 20:13 - General General appearance: Appears well, Alert In distress: None - HEENT Head: Normocephalic, Atraumatic Extraocular movements intact: Yes Pupils: PERRL - Respiratory Respiratory status: No respiratory distress Breath sounds: Normal - Cardiovascular Rhythm: Regular Heart sounds: Normal auscultation - Abdominal Inspection: Obese Tenderness: Nontender - Extremities General upper extremity: Normal ROM General lower extremity: Normal ROM - Neurological Neuro grossly intact: Yes Cognition: Normal Orientation: AAOx4 - Psychological Associated symptoms: Normal affect - Skin Skin Temperature: Warm Course - Re-evaluation Re-evalutation: 54-year-old female presents with fatigue, cough, and seeing flecks of blood twice today. On exam she is nontoxic-appearing, afebrile, no hypoxia, breath sounds clear bilaterally. Suspect that the flexible she is seeing his likely from irritation. No previous history of clot, no hypoxia or tachycardia to suggest this otherwise. She under went laboratory evaluation. No leukocytosis or left shift. No acute anemia. Electrolytes okay. Creatinine elevated 2.8 which is somewhat above her baseline. No elevation of LFTs. Influenza negative. Her chest x-ray has bibasilar patchy infiltrates. Patient was updated on the results. She does note that she has a history of CKD and was instructed to drink plenty of fluids and have her labs rechecked at some point this week. I discussed with her that her chest x-ray and symptoms are suggestive of Covid, she should receive results in about 2 to 3 days. Given the acute onset of her symptoms, would not suspect a bacterial process at this time. We discussed symptomatic care at home. Return precautions given, stable at time of discharge. - Vital Signs Vital signs: Temp Pulse Resp BP Pulse Ox 97.8 F 71 14 140/103 H 95 07/25/20 00:06 07/25/20 00:06 07/25/20 00:06 07/25/20 00:06 07/25/20 00:06 - Laboratory Results Result Diagrams: 07/24/20 22:00 07/24/20 22:00 Laboratory Results Interpreted: 07/24/20 07/24/20 22:00 22:00 RDW 15.4 H Seg Neutrophils % 79.3 H Sodium 136.4 L BUN 32 H Creatinine 2.82 H Est GFR ( Amer) 21 L Est GFR (MDRD) Non-Af 17 L Glucose 152 H Critical Laboratory Results Reviewed: No Critical Results - Radiology Results Critical Radiology Results Reviewed: No Critical Results Discharge - Discharge Clinical Impression: Person under investigation for COVID-19, CKD (chronic kidney disease) stage 4, GFR 15-29 ml/min Disposition: HOME, SELF-CARE Instructions: COVID-19 Guidance for Persons Under Investigation Additional Instructions: Your Covid swab should result in about 2 to 3 days. Please maintain strict quarantine at home until you receive this result. Continue symptomatic care which includes Tylenol for fever, Mucinex and Robitussin for cough. You may also supplement with vitamin C, vitamin D and zinc -these are often sold under brand names such as Zicam or Emergen-C. Would also advise to start a daily aspirin. Your creatinine was also elevated from your typical values. Please drink plenty of fluids and have your primary care doctor recheck at some point this week. Return to the emergency department for any concerning or worsening symptoms. Referrals: JONATHON RODRIGEZ MD [Primary Care Provider] - Follow up as needed
[2020-07-24] MEDS ORDERED: GUAIFENESIN/D-METHORPHAN (200-20 MG) SYRUP 10 ML PO ONE (23:38)
[2020-07-25 00:07] VITALS: BP 140/103
== END 2020-07-25 00:12 | disposition home or self-care (01) ==
LOC: ER 20:08
DX: U07.1 COVID-19 (principal); I12.9 Hypertensive chronic kidney disease with stage 1 through stage 4 chronic kidney disease, or unspecified chronic kidney disease; E11.22 Type 2 diabetes mellitus with diabetic chronic kidney disease; N18.4 Chronic kidney disease, stage 4 (severe); R05 Cough; R53.83 Other fatigue; E78.00 Pure hypercholesterolemia, unspecified; J45.909 Unspecified asthma, uncomplicated; F12.10 Cannabis abuse, uncomplicated; Z79.899 Other long term (current) drug therapy; Z88.8 Allergy status to other drugs, medicaments and biological substances; Z91.013 Allergy to seafood; Z88.2 Allergy status to sulfonamides; Z91.041 Radiographic dye allergy status; I25.10 Atherosclerotic heart disease of native coronary artery without angina pectoris
CPT/HCPCS: 99284; 36415; 85025; 85610; 80053; 87804; 71046; U0003; A9270; C9803; 87635; J3490